=== PATIENT | female | born 1940 | race Caucasian/White ===

== ENCOUNTER 2016-08-10 09:41 | Inpatient (IN) | payer MEDICARE, BC ==
[2016-08-10] MEDS ORDERED: SODIUM CHLORIDE 0.9% 1,000 ML IV STA (09:50)
--- NOTE | 2016-08-10 09:53 | ED ---
SOB HPI - General Stated Complaint: SOB/Back Pain Time Seen by Provider: 08/10/16 09:41 Source: patient, EMS, RN notes reviewed Mode of arrival: EMS - History of Present Illness Initial Comments: This is a 75-year-old female history of COPD who states she had the onset over last 3 days of progressively worsening shortness of breath also she started developing sharp chest pain between her shoulder blades 10/10 severity this morning increases with movement and deep breathing. She was given Nubain 5 mg by EMS to decrease to 6/10 and also for/10 after 5 additional milligrams. She did have a low-grade temperature 99.1 she states she's also had some recent night sweats. She has quit smoking for about 2 months now. His other complaints at this time no peripheral edema. Some cough no overt phlegm production MD Complaint: shortness of breath, chest pain - Related Data Home Medications Medication Instructions Recorded Confirmed Atenolol [Tenormin] 25 mg PO BID 09/29/13 08/10/16 Losartan Potassium [Cozaar] 100 mg PO DAILY 09/25/15 08/10/16 Esomeprazole Magnesium [NexIUM] 40 mg PO DAILY@1200 08/03/16 08/10/16 HYDROcodone/APAP 5-325MG [[place] 0.5 - 1 tab PO BID PRN 08/03/16 08/10/16 5-325] L.acidoph,Paracasei, B.lactis 1 tab PO DAILY@1200 08/03/16 08/10/16 [Probiotic] Polyethylene Glycol 3350 [Miralax] 17 gm PO DAILY 08/03/16 08/10/16 predniSONE 5 mg PO DAILY 08/03/16 08/10/16 Allergies Allergy/AdvReac Type Severity Reaction Status Date / Time latex Allergy Rash/Hives Verified 08/10/16 10:33 levofloxacin [From Levaquin] Allergy Nausea & Verified 08/10/16 10:33 Vomiting Sulfa (Sulfonamide Allergy Rash/Hives Verified 08/10/16 10:33 Antibiotics) adhesive AdvReac Rash/Hives Verified 08/10/16 10:33 Review of Systems ROS Statement: Those systems with pertinent positive or pertinent negative responses have been documented in the HPI. ROS Other: All systems not noted in ROS Statement are negative. Past Medical History Past Medical History: GERD/Reflux, Hypertension, Respiratory Disorder Additional Past Medical History / Comment(s): slight emphysema, irregular heart beat, MASS LEFT UPPER LOBE treated with radiation 2016, pulmonary fibrosis O2 @ 2 liter while sleeping, abdominal discomfort History of Any Multi-Drug Resistant Organisms: None Reported Past Surgical History: Cholecystectomy, EPS, Heart Catheterization, Hysterectomy Additional Past Surgical History / Comment(s): LEFT LUNG CT GUIDED NEEDLE BX Past Anesthesia/Blood Transfusion Reactions: No Reported Reaction Past Psychological History: No Psychological Hx Reported Smoking Status: Former smoker Past Alcohol Use History: None Reported Additional Past Alcohol Use History / Comment(s): smoked 50 years 1ppd quit Past Drug Use History: None Reported - Past Family History Daughter(s) Family Medical History: Blood Disorder, Deep Vein Thrombosis (DVT) Additional Family Medical History / Comment(s): Factor V Mother Family Medical History: No Reported History General Exam - General Exam Comments Initial Comments: This is a well-developed well-nourished awake alert oriented 3 female General appearance: alert, in no apparent distress Head exam: Present: atraumatic, normocephalic, normal inspection Eye exam: Present: normal appearance, PERRL, EOMI. Absent: scleral icterus, conjunctival injection, periorbital swelling ENT exam: Present: normal exam, mucous membranes moist Neck exam: Present: normal inspection. Absent: tenderness, meningismus, lymphadenopathy Respiratory exam: Present: rhonchi (Rhonchi especially the right lower lobe), chest wall tenderness (Tennis palpation to the paraspinous muscles between the scapula. No step-off or crepitation no spinous process tenderness.), decreased breath sounds. Absent: respiratory distress, wheezes, rales, stridor Cardiovascular Exam: Present: regular rate, normal rhythm, normal heart sounds. Absent: systolic murmur, diastolic murmur, rubs, gallop, clicks GI/Abdominal exam: Present: soft, normal bowel sounds. Absent: distended, tenderness, guarding, rebound, rigid Extremities exam: Present: normal inspection, full ROM, normal capillary refill. Absent: tenderness, pedal edema, joint swelling, calf tenderness Back exam: Present: normal inspection Neurological exam: Present: alert, oriented X3, CN II-XII intact Psychiatric exam: Present: normal affect, normal mood Skin exam: Present: warm, dry, intact, normal color. Absent: rash Course Vital Signs 08/10/16 08/10/16 08/10/16 09:51 10:45 11:11 Temperature 97.9 F Pulse Rate 60 56 L Respiratory 18 18 18 Rate Blood Pressure 173/82 161/78 O2 Sat by Pulse 95 98 Oximetry 08/10/16 08/10/16 12:53 13:34 Temperature 98.1 F 97.9 F Pulse Rate 64 59 L Respiratory 20 18 Rate Blood Pressure 141/66 169/72 O2 Sat by Pulse 80 L 99 Oximetry Medical Decision Making - Medical Decision Making I did discuss the case with patient family and with Dr. Flor patient will be admitted admission was pending a CAT scan that was ordered. Real sober now seen. Dr. Flor did see the patient in the ER. - Lab Data Result diagrams: 08/10/16 10:00 08/10/16 10:00 Lab Results 08/10/16 08/10/16 08/10/16 Range/Units 10:00 10:00 10:00 WBC 7.3 (3.8-10.6) k/uL RBC 4.13 (3.80-5.40) m/uL Hgb 13.0 (11.4-16.0) gm/dL Hct 39.4 (34.0-46.0) % MCV 95.4 (80.0-100.0) fL MCH 31.5 (25.0-35.0) pg MCHC 33.0 (31.0-37.0) g/dL RDW 13.1 (11.5-15.5) % Plt Count 176 (150-450) k/uL Neutrophils % 83 % Lymphocytes % 6 % Monocytes % 7 % Eosinophils % 2 % Basophils % 0 % Neutrophils # 6.1 (1.3-7.7) k/uL Lymphocytes # 0.5 L (1.0-4.8) k/uL Monocytes # 0.5 (0-1.0) k/uL Eosinophils # 0.1 (0-0.7) k/uL Basophils # 0.0 (0-0.2) k/uL PT (9.0-12.0) sec INR (<1.1) APTT (22.0-30.0) sec D-Dimer (<0.60) mg/L FEU Sodium (137-145) mmol/L Potassium (3.5-5.1) mmol/L Chloride (98-107) mmol/L Carbon Dioxide (22-30) mmol/L Anion Gap mmol/L BUN (7-17) mg/dL Creatinine (0.52-1.04) mg/dL Est GFR (MDRD) Af Amer (>60 ml/min/1.73 sqM) Est GFR (MDRD) Non-Af (>60 ml/min/1.73 sqM) Glucose (74-99) mg/dL Plasma Lactic Acid Bala 1.6 (0.7-2.0) mmol/L Calcium (8.4-10.2) mg/dL Magnesium (1.6-2.3) mg/dL Total Bilirubin (0.2-1.3) mg/dL AST (14-36) U/L ALT (9-52) U/L Alkaline Phosphatase (38-126) U/L Total Creatine Kinase 21 L (30-135) U/L CK-MB (CK-2) 0.3 (0.0-2.4) ng/mL CK-MB (CK-2) Rel Index 1.4 Troponin I <0.012 (0.000-0.034) ng/mL NT-Pro-B Natriuret Pep pg/mL Total Protein (6.3-8.2) g/dL Albumin (3.5-5.0) g/dL Influenza Type A RNA (Not Detectd) Influenza Type B (PCR) (Not Detectd) 08/10/16 08/10/16 08/10/16 Range/Units 10:00 10:00 10:00 WBC (3.8-10.6) k/uL RBC (3.80-5.40) m/uL Hgb (11.4-16.0) gm/dL Hct (34.0-46.0) % MCV (80.0-100.0) fL MCH (25.0-35.0) pg MCHC (31.0-37.0) g/dL RDW (11.5-15.5) % Plt Count (150-450) k/uL Neutrophils % % Lymphocytes % % Monocytes % % Eosinophils % % Basophils % % Neutrophils # (1.3-7.7) k/uL Lymphocytes # (1.0-4.8) k/uL Monocytes # (0-1.0) k/uL Eosinophils # (0-0.7) k/uL Basophils # (0-0.2) k/uL PT 10.2 (9.0-12.0) sec INR 1.0 (<1.1) APTT 21.7 L (22.0-30.0) sec D-Dimer 1.00 H (<0.60) mg/L FEU Sodium 139 (137-145) mmol/L Potassium 4.3 (3.5-5.1) mmol/L Chloride 101 (98-107) mmol/L Carbon Dioxide 28 (22-30) mmol/L Anion Gap 10 mmol/L BUN 10 (7-17) mg/dL Creatinine 0.71 (0.52-1.04) mg/dL Est GFR (MDRD) Af Amer >60 (>60 ml/min/1.73 sqM) Est GFR (MDRD) Non-Af >60 (>60 ml/min/1.73 sqM) Glucose 100 H (74-99) mg/dL Plasma Lactic Acid Bala (0.7-2.0) mmol/L Calcium 9.3 (8.4-10.2) mg/dL Magnesium 2.0 (1.6-2.3) mg/dL Total Bilirubin 0.7 (0.2-1.3) mg/dL AST 17 (14-36) U/L ALT 25 (9-52) U/L Alkaline Phosphatase 52 (38-126) U/L Total Creatine Kinase (30-135) U/L CK-MB (CK-2) (0.0-2.4) ng/mL CK-MB (CK-2) Rel Index Troponin I (0.000-0.034) ng/mL NT-Pro-B Natriuret Pep 1140 pg/mL Total Protein 6.6 (6.3-8.2) g/dL Albumin 4.0 (3.5-5.0) g/dL Influenza Type A RNA (Not Detectd) Influenza Type B (PCR) (Not Detectd) 08/10/16 Range/Units 12:00 WBC (3.8-10.6) k/uL RBC (3.80-5.40) m/uL Hgb (11.4-16.0) gm/dL Hct (34.0-46.0) % MCV (80.0-100.0) fL MCH (25.0-35.0) pg MCHC (31.0-37.0) g/dL RDW (11.5-15.5) % Plt Count (150-450) k/uL Neutrophils % % Lymphocytes % % Monocytes % % Eosinophils % % Basophils % % Neutrophils # (1.3-7.7) k/uL Lymphocytes # (1.0-4.8) k/uL Monocytes # (0-1.0) k/uL Eosinophils # (0-0.7) k/uL Basophils # (0-0.2) k/uL PT (9.0-12.0) sec INR (<1.1) APTT (22.0-30.0) sec D-Dimer (<0.60) mg/L FEU Sodium (137-145) mmol/L Potassium (3.5-5.1) mmol/L Chloride (98-107) mmol/L Carbon Dioxide (22-30) mmol/L Anion Gap mmol/L BUN (7-17) mg/dL Creatinine (0.52-1.04) mg/dL Est GFR (MDRD) Af Amer (>60 ml/min/1.73 sqM) Est GFR (MDRD) Non-Af (>60 ml/min/1.73 sqM) Glucose (74-99) mg/dL Plasma Lactic Acid Bala (0.7-2.0) mmol/L Calcium (8.4-10.2) mg/dL Magnesium (1.6-2.3) mg/dL Total Bilirubin (0.2-1.3) mg/dL AST (14-36) U/L ALT (9-52) U/L Alkaline Phosphatase (38-126) U/L Total Creatine Kinase (30-135) U/L CK-MB (CK-2) (0.0-2.4) ng/mL CK-MB (CK-2) Rel Index Troponin I (0.000-0.034) ng/mL NT-Pro-B Natriuret Pep pg/mL Total Protein (6.3-8.2) g/dL Albumin (3.5-5.0) g/dL Influenza Type A RNA Not Detected (Not Detectd) Influenza Type B (PCR) Not Detected (Not Detectd) - EKG Data -: EKG Interpreted by Me EKG shows normal: sinus rhythm (Bradycardic sinus rhythm rate of 53 IA interval 1:30 QRS duration 86 QT/QTC of 440/412 possible left atrial enlargement no acute ST-T wave changes) - Radiology Data Radiology results: report reviewed (Review the imaging and report no acute changes the CAT scan was ordered showed a pleural base left upper lobe mass anteriorly. Please see the complete report), image reviewed Disposition Clinical Impression: Acute exacerbation of chronic obstructive airways disease, Adult respiratory distress syndrome, Mass of lung, Pulmonary fibrosis, Influenza, Febrile illness , acute Disposition: ADMITTED IP TO THIS HOSP Condition: Stable
[2016-08-10 10:17] LABS: Basophils % (A) 0 %; CH 32.3; Eosinophils # (A) 0.1 k/uL (0-0.7); Eosinophils % (A) 2 %; HCT 39.4 % (34.0-46.0); HDW 2.59; Luc % (Auto) 1; Lymphocytes # (A) 0.5 k/uL (1.0-4.8); Lymphocytes % (A) 6 %; MCH 31.5 pg (25.0-35.0); MCV 95.4 fL (80.0-100.0); Monocytes # (A) 0.5 k/uL (0-1.0); Monocytes % (A) 7 %; Neutrophils # (A) 6.1 k/uL (1.3-7.7); Neutrophils % (A) 83 %; RBC 4.13 m/uL (3.80-5.40); RDW 13.1 % (11.5-15.5); WBC 7.3 k/uL (3.8-10.6); WBC (Perox) 7.75
[2016-08-10 10:23] LABS: ALT 25 U/L (9-52); AST 17 U/L (14-36); Alkaline Phosphatase 52 U/L (38-126); Anion Gap 10 mmol/L; Blood Urea Nitrogen 10 mg/dL (7-17); Calcium 9.3 mg/dL (8.4-10.2); Carbon Dioxide 28 mmol/L (22-30); Chloride 101 mmol/L (98-107); Glucose 100 mg/dL (74-99); Non-African American GFR(MDRD) >60 (>60 ml/min/1.73 sqM); Potassium 4.3 mmol/L (3.5-5.1); Sodium 139 mmol/L (137-145); Total Bilirubin 0.7 mg/dL (0.2-1.3); Total Protein 6.6 g/dL (6.3-8.2)
[2016-08-10 10:25] LABS: Prothrombin Time 10.2 sec (9.0-12.0)
[2016-08-10 10:34] LABS: Creatine Kinase 21 U/L (30-135)
[2016-08-10 10:41] LABS: Partial Thromboplastin Time 21.7 sec (22.0-30.0)
--- NOTE | 2016-08-10 10:46 | XR ---
EXAMINATION TYPE: XR chest 2V DATE OF EXAM: 08/10/2016 10:41 AM COMPARISON: 07/06/2016 TECHNIQUE: PA and lateral views submitted. HISTORY: Shortness of breath FINDINGS: Coarsened interstitium suggests chronic interstitial lung disease or fibrosis. Focal area of density or mass in the left upper lobe noted. Heart size is enlarged. Arthropathy of the hip joints and diffu se osteopenia noted. IMPRESSION: 1. Findings suggest pulmonary fibrosis. Focal area of scar or mass in the left upper lobe noted. Pleu ral-based mass was seen on previous CT scan of 04/21/2016
[2016-08-10 10:47] LABS: Creatine Kinase MB 0.3 ng/mL (0.0-2.4); Troponin I <0.012 ng/mL (0.000-0.034)
[2016-08-10] MEDS ORDERED: RX INFO: IV CONTRAST WAS GIVEN 1 EACH MISC MISCELLANE PRN (13:21)
[2016-08-10] MEDS ORDERED: HYDROcodone/APAP 5-325MG 1 EACH TAB PO STA (14:03)
--- NOTE | 2016-08-10 14:07 | CT ---
EXAMINATION TYPE: CT angio chest DATE OF EXAM: 08/10/2016 1:57 PM COMPARISON: 04/21/2016 HISTORY: Patient complains of upper chest pain. Patient has elevated d-dimer. CT DLP: 22.4 mGycm CONTRAST: CT chest with contrast and 3D reconstruction with MIP imaging is performed with IV Contrast, patient injected with 100 mL of Omnipaque 350. Contrast-enhanced CT of the chest was performed through the course of the pulmonary arteries with sandra g and mediastinal window settings submitted. 3D reconstruction with MIP imaging was also performed. PULMONARY ARTERIES: The pulmonary arteries and their major tributaries are patent. I do not see hakeem dence for sizable filling defect to suggest pulmonary embolic process. LUNGS: There is a pleural-based mass left upper lobe anteriorly which measures 3 x 2.5 cm and demonst rates chest wall invasion into the left pectoralis minor musculature. Additional nodular density me asuring 9.2 mm left upper lobe anteriorly image 33. Satellite nodule is also identified on image 42 m easuring 7 mm. There is evidence of a moderate to severe idiopathic pulmonary fibrosis. Scattered are as of infiltrate right lower lobe. This finding is stable. Mild basilar bronchiectasis. MEDIASTINUM: Atheromatous and ectatic change of the thoracic aorta. Prominence of the pulmonary arter ies suggesting pulmonary arterial hypertension. The heart is enlarged. No evidence for mediastinal m ass. No mediastinal lymph nodes greater than 1cm. HILAR STRUCTURES: No evidence for mass. No hilar lymph nodes greater than 1 cm. UPPER ABDOMEN: No significant abnormality is seen. Degenerative changes thoracic and lumbar spine wi th several hemangiomas noted. IMPRESSION: 1. No evidence for Pulmonary embolism at this time. 2.pleural-based mass left upper lobe anteriorly which measures 3 x 2.5 cm and demonstrates chest wal l invasion into the left pectoralis minor musculature. Additional nodular densities as discussed marcela picious for small metastatic foci. 3. Idiopathic pulmonary fibrosis with scattered areas of infiltrate and bronchiectasis.
[2016-08-10] MEDS ORDERED: HYDROcodone/APAP 5-325MG 1 EACH TAB PO PRN (14:23)
--- NOTE | 2016-08-10 14:26 | ED ---
Medical Decision Making - Lab Data Result diagrams: 08/10/16 10:00 08/10/16 10:00 Lab Results 08/10/16 08/10/16 08/10/16 Range/Units 10:00 10:00 10:00 WBC 7.3 (3.8-10.6) k/uL RBC 4.13 (3.80-5.40) m/uL Hgb 13.0 (11.4-16.0) gm/dL Hct 39.4 (34.0-46.0) % MCV 95.4 (80.0-100.0) fL MCH 31.5 (25.0-35.0) pg MCHC 33.0 (31.0-37.0) g/dL RDW 13.1 (11.5-15.5) % Plt Count 176 (150-450) k/uL Neutrophils % 83 % Lymphocytes % 6 % Monocytes % 7 % Eosinophils % 2 % Basophils % 0 % Neutrophils # 6.1 (1.3-7.7) k/uL Lymphocytes # 0.5 L (1.0-4.8) k/uL Monocytes # 0.5 (0-1.0) k/uL Eosinophils # 0.1 (0-0.7) k/uL Basophils # 0.0 (0-0.2) k/uL PT (9.0-12.0) sec INR (<1.1) APTT (22.0-30.0) sec D-Dimer (<0.60) mg/L FEU Sodium (137-145) mmol/L Potassium (3.5-5.1) mmol/L Chloride (98-107) mmol/L Carbon Dioxide (22-30) mmol/L Anion Gap mmol/L BUN (7-17) mg/dL Creatinine (0.52-1.04) mg/dL Est GFR (MDRD) Af Amer (>60 ml/min/1.73 sqM) Est GFR (MDRD) Non-Af (>60 ml/min/1.73 sqM) Glucose (74-99) mg/dL Plasma Lactic Acid Bala 1.6 (0.7-2.0) mmol/L Calcium (8.4-10.2) mg/dL Magnesium (1.6-2.3) mg/dL Total Bilirubin (0.2-1.3) mg/dL AST (14-36) U/L ALT (9-52) U/L Alkaline Phosphatase (38-126) U/L Total Creatine Kinase 21 L (30-135) U/L CK-MB (CK-2) 0.3 (0.0-2.4) ng/mL CK-MB (CK-2) Rel Index 1.4 Troponin I <0.012 (0.000-0.034) ng/mL NT-Pro-B Natriuret Pep pg/mL Total Protein (6.3-8.2) g/dL Albumin (3.5-5.0) g/dL Influenza Type A RNA (Not Detectd) Influenza Type B (PCR) (Not Detectd) 08/10/16 08/10/16 08/10/16 Range/Units 10:00 10:00 10:00 WBC (3.8-10.6) k/uL RBC (3.80-5.40) m/uL Hgb (11.4-16.0) gm/dL Hct (34.0-46.0) % MCV (80.0-100.0) fL MCH (25.0-35.0) pg MCHC (31.0-37.0) g/dL RDW (11.5-15.5) % Plt Count (150-450) k/uL Neutrophils % % Lymphocytes % % Monocytes % % Eosinophils % % Basophils % % Neutrophils # (1.3-7.7) k/uL Lymphocytes # (1.0-4.8) k/uL Monocytes # (0-1.0) k/uL Eosinophils # (0-0.7) k/uL Basophils # (0-0.2) k/uL PT 10.2 (9.0-12.0) sec INR 1.0 (<1.1) APTT 21.7 L (22.0-30.0) sec D-Dimer 1.00 H (<0.60) mg/L FEU Sodium 139 (137-145) mmol/L Potassium 4.3 (3.5-5.1) mmol/L Chloride 101 (98-107) mmol/L Carbon Dioxide 28 (22-30) mmol/L Anion Gap 10 mmol/L BUN 10 (7-17) mg/dL Creatinine 0.71 (0.52-1.04) mg/dL Est GFR (MDRD) Af Amer >60 (>60 ml/min/1.73 sqM) Est GFR (MDRD) Non-Af >60 (>60 ml/min/1.73 sqM) Glucose 100 H (74-99) mg/dL Plasma Lactic Acid Bala (0.7-2.0) mmol/L Calcium 9.3 (8.4-10.2) mg/dL Magnesium 2.0 (1.6-2.3) mg/dL Total Bilirubin 0.7 (0.2-1.3) mg/dL AST 17 (14-36) U/L ALT 25 (9-52) U/L Alkaline Phosphatase 52 (38-126) U/L Total Creatine Kinase (30-135) U/L CK-MB (CK-2) (0.0-2.4) ng/mL CK-MB (CK-2) Rel Index Troponin I (0.000-0.034) ng/mL NT-Pro-B Natriuret Pep 1140 pg/mL Total Protein 6.6 (6.3-8.2) g/dL Albumin 4.0 (3.5-5.0) g/dL Influenza Type A RNA (Not Detectd) Influenza Type B (PCR) (Not Detectd) 08/10/16 Range/Units 12:00 WBC (3.8-10.6) k/uL RBC (3.80-5.40) m/uL Hgb (11.4-16.0) gm/dL Hct (34.0-46.0) % MCV (80.0-100.0) fL MCH (25.0-35.0) pg MCHC (31.0-37.0) g/dL RDW (11.5-15.5) % Plt Count (150-450) k/uL Neutrophils % % Lymphocytes % % Monocytes % % Eosinophils % % Basophils % % Neutrophils # (1.3-7.7) k/uL Lymphocytes # (1.0-4.8) k/uL Monocytes # (0-1.0) k/uL Eosinophils # (0-0.7) k/uL Basophils # (0-0.2) k/uL PT (9.0-12.0) sec INR (<1.1) APTT (22.0-30.0) sec D-Dimer (<0.60) mg/L FEU Sodium (137-145) mmol/L Potassium (3.5-5.1) mmol/L Chloride (98-107) mmol/L Carbon Dioxide (22-30) mmol/L Anion Gap mmol/L BUN (7-17) mg/dL Creatinine (0.52-1.04) mg/dL Est GFR (MDRD) Af Amer (>60 ml/min/1.73 sqM) Est GFR (MDRD) Non-Af (>60 ml/min/1.73 sqM) Glucose (74-99) mg/dL Plasma Lactic Acid Bala (0.7-2.0) mmol/L Calcium (8.4-10.2) mg/dL Magnesium (1.6-2.3) mg/dL Total Bilirubin (0.2-1.3) mg/dL AST (14-36) U/L ALT (9-52) U/L Alkaline Phosphatase (38-126) U/L Total Creatine Kinase (30-135) U/L CK-MB (CK-2) (0.0-2.4) ng/mL CK-MB (CK-2) Rel Index Troponin I (0.000-0.034) ng/mL NT-Pro-B Natriuret Pep pg/mL Total Protein (6.3-8.2) g/dL Albumin (3.5-5.0) g/dL Influenza Type A RNA Not Detected (Not Detectd) Influenza Type B (PCR) Not Detected (Not Detectd) Disposition Clinical Impression: Acute exacerbation of chronic obstructive airways disease, Adult respiratory distress syndrome, Mass of lung, Pulmonary fibrosis, Influenza, Febrile illness , acute Disposition: ADMITTED IP TO THIS HOSP Condition: Stable Referrals: Higinio Oro MD [Primary Care Provider] - 1-2 days Decision Time: 13:30
[2016-08-10] MEDS ORDERED: SODIUM CHLORIDE 0.9% 1,000 ML IV SCH (14:30)
[2016-08-10] MEDS: IPRATROPIUM-ALBUTEROL 3 ML NEB INHALATION SCH ×2 (16:30→21:08)
--- NOTE | 2016-08-10 16:52 | P.HPIM ---
History of Present Illness H&P Date: 08/10/16 Chief Complaint: Acute respiratory failure, ARDS, febrile illness, pulmonary fibrosis, COPD 74-year-old female [address] Higinio Oro's patient with past medical history of pulmonary fibrosis, COPD, left upper lobe radiation secondary to mass claim by patient that was not cancerous at the time, also patient has history of CAD arrhythmia hypertension and hyperlipidemia. Ex line patient presented to the emergency department at [facility] complaining of back pain between her shoulder blade area along with significant shortness of breath cough and wheezes with significant hypoxia and worsening symptoms compared to her baseline. Patient also developed to have fever chills and mildly productive cough. Patient finding in the emergency room x-ray consistent with abnormality with her pulmonary fibrosis and COPD with? Of pneumonia. CTA came back negative for PE but consistent with finding off a new mass in the left upper lobe along with scarring tissue and few site of metastasis in the pleural area. Patient was diagnosed with COPD exacerbation, ARDS, febrile illness, hypoxia and respiratory failure will be admitting patient to the hospital for the above problem. Review of Systems Constitutional: Reports anorexia, Reports fatigue, Reports lethargy, Reports malaise, Reports poor appetite, Reports weakness, Reports weight loss, Denies as per HPI, Denies chills, Denies chronic headaches, Denies chronic pain, Denies daytime sleepiness, Denies fever, Denies night sweats, Denies sweats, Denies weight gain Eyes: denies as per HPI Ears: bilateral: decreased hearing Ears, nose, mouth and throat: Reports dysphagia, Reports nasal congestion, Reports nasal discharge, Reports sinus pain, Reports sinus pressure, Denies as per HPI, Denies ant. neck pain, Denies bleeding gums, Denies dental pain, Denies epistaxis, Denies headache, Denies hoarseness, Denies mouth pain, Denies neck fullness/pressure, Denies neck lump, Denies nose pain, Denies odynophagia, Denies post-nasal drip, Denies swelling in mouth, Denies swelling in throat, Denies sore throat, Denies vertigo, Denies voice changes Breasts: bilateral: as per HPI Cardiovascular: Reports chest pain, Reports decreased exercise tolerance, Reports dyspnea on exertion, Reports edema, Reports high blood pressure, Reports irregular heart beat, Reports leg edema, Reports orthopnea, Reports palpitations, Reports paroxysmal nocturnal dyspnea, Reports rapid heart beat, Reports shortness of breath, Denies as per HPI, Denies claudication, Denies lightheadedness, Denies phlebitis, Denies syncope Respiratory: Reports congestion, Reports cough, Reports dyspnea, Reports pain on inspiration, Reports respiratory infections, Reports wheezing, Denies as per HPI, Denies cough with sputum, Denies excessive sputum, Denies hemoptysis, Denies home oxygen, Denies pain, Denies pleurisy, Denies sleep apnea, Denies snoring Gastrointestinal: Reports abdominal pain, Reports bloating, Reports constipation , Reports dyspepsia, Reports indigestion, Reports loss of appetite, Reports nausea, Denies as per HPI, Denies belching, Denies BRBPR, Denies change in bowel habits, Denies coffee ground emesis, Denies diarrhea, Denies early satiety , Denies excessive gas, Denies heartburn, Denies hematemesis, Denies hematochezia, Denies jaundice, Denies lactose intolerance, Denies melena, Denies vomiting Genitourinary: Reports urgency, Reports urinary frequency, Denies as per HPI, Denies abnormal vaginal bleeding, Denies decreased libido, Denies difficulty conceiving, Denies difficulty voiding, Denies dysmenorrhea, Denies dyspareunia, Denies dysuria, Denies flank pain, Denies genital sores, Denies hematuria, Denies hot flashes, Denies incomplete emptying, Denies kidney stones, Denies menorrhagia, Denies mixed incontinence, Denies nocturia, Denies pelvic pain, Denies post void dribbling, Denies , Denies prolapse symptoms, Denies stress incontinence, Denies urge incontinence, Denies vaginal discharge, Denies vaginal dryness, Denies vaginal itching, Denies vaginal odor Musculoskeletal: Reports arm numbness/tingling, Reports loss of height, Reports low back pain, Reports muscle cramps, Reports myalgias, Reports neck pain, Denies as per HPI, Denies atrophy, Denies fractures, Denies frequent falls, Denies gait dysfunction, Denies hot joints, Denies leg numbness/tingling, Denies limitation of motion, Denies morning stiffness, Denies muscle weakness, Denies neck stiffness, Denies prior amputations, Denies redness of joints, Denies shooting arm pain, Denies shooting leg pain Integumentary: Reports pruritus, Reports rash, Denies as per HPI, Denies acne, Denies boils, Denies brittle nails, Denies change in hair/nails, Denies color changes, Denies darkening of skin, Denies depigmentation, Denies dryness, Denies foot/leg ulcers, Denies growths, Denies hirsutism, Denies lesions, Denies onychomycosis, Denies sores, Denies striae, Denies unusual bruising, Denies wounds Neurological: Reports ataxia, Reports burning pain, Reports tingling, Denies as per HPI, Denies aphasia, Denies balance difficulties, Denies change in mentation , Denies change in smell/taste, Denies change in speech, Denies confusion, Denies convulsions, Denies double vision, Denies gait dysfunction, Denies head injury, Denies headaches, Denies hearing difficulties, Denies lack of coordination, Denies loss of vision, Denies memory loss, Denies migraines, Denies motor disturbance, Denies numbness, Denies paralysis, Denies paresthesias , Denies seizures, Denies sensory deficit, Denies spasticity, Denies syncope, Denies tic, Denies transient paralysis, Denies tremors, Denies vertigo, Denies weakness, Denies visual changes Psychiatric: Reports anhedonia, Reports anxiety, Reports depression, Reports memory loss, Denies as per HPI, Denies anxiety attacks, Denies change in appetite, Denies change in libido, Denies change in sleep habits, Denies confusion, Denies difficulty concentrating, Denies disorientation, Denies hallucinations, Denies hopelessness, Denies hypersomnia, Denies insomnia, Denies irritability, Denies mood swings, Denies paranoia, Denies sadness/ tearfulness, Denies sleep disturbances, Denies suicidal ideation Endocrine: Reports cold intolerance, Reports excessive thirst, Reports fatigue, Denies as per HPI, Denies deepening of the voice, Denies excessive sweating, Denies flushing, Denies heat intolerance, Denies high blood sugars, Denies increase in ring/shoe/hat size, Denies low blood sugars, Denies nocturia, Denies palpitations, Denies polydipsia, Denies polyphagia, Denies polyuria, Denies proptosis, Denies recent glucocorticoid use, Denies thyroid mass, Denies weight change Hematologic/Lymphatic: Reports easy bleeding, Reports easy bruising, Denies as per HPI, Denies lymphadenopathy, Denies lymphedema, Denies thrombophilia Allergic/Immunologic: Reports allergic rhinitis, Denies as per HPI, Denies anaphylaxis, Denies angioedema, Denies gluten intolerance, Denies persistent infections, Denies seasonal allergies, Denies urticaria, Denies wheezing Past Medical History Past Medical History: COPD, GERD/Reflux, Hypertension, Osteoarthritis (OA), Respiratory Disorder Additional Past Medical History / Comment(s): slight emphysema," irregular heart beat, PT DENIES CANCER OF ANY KIND BUT"NODULE LEFT UPPER LOBE KEPT GETTING LARER SO THEY DID treated with radiation 2015, pulmonary fibrosis, O2 @ 2 liter while sleeping, abdominal discomfort, HAD PNE VACCINE AFTER AGE 67-NOT SURE OF DATE. History of Any Multi-Drug Resistant Organisms: None Reported Past Surgical History: Cholecystectomy, EPS, Heart Catheterization, Hysterectomy Additional Past Surgical History / Comment(s): 05-02-12 BRONCH W/ BX. LEFT LUNG CT GUIDED NEEDLE BX 01/25/15, BRONCH/BX 02-17-15,"BENIGN" NASAL POLYPS REMOVED-BENIGN, ESSENCE CATARACTS, COLONOSCOPY/POLYPECTOMY-BENIGN, HYSTERECTOMY AGE 41 STILL HAS RT OVARY.EGD. Past Anesthesia/Blood Transfusion Reactions: No Reported Reaction Past Psychological History: No Psychological Hx Reported Additional Psychological History / Comment(s): PT LIVES WITH SPOUSE,IS INDEPENDANT, HAS TOTAL OF 4 STEPS TO GET INTO HOME. NO PETS. HAS HOME 02. NO OUTSIDE SERVICES. Smoking Status: Former smoker Past Alcohol Use History: None Reported Additional Past Alcohol Use History / Comment(s): smoked 50 years 1ppd quit Past Drug Use History: None Reported - Past Family History Daughter(s) Family Medical History: Blood Disorder, Deep Vein Thrombosis (DVT) Additional Family Medical History / Comment(s): Factor V,,, GRANDAUGHTER HAS FACTOR V WELL Father Additional Family Medical History / Comment(s): VALVE REPLACEMENT Mother Family Medical History: No Reported History Medications and Allergies Home Medications Medication Instructions Recorded Confirmed Type Atenolol [Tenormin] 25 mg PO BID 09/29/13 08/10/16 History Losartan Potassium [Cozaar] 100 mg PO DAILY 09/25/15 08/10/16 History Esomeprazole Magnesium [NexIUM] 40 mg PO DAILY@1200 08/03/16 08/10/16 History HYDROcodone/APAP 5-325MG [[place] 0.5 - 1 tab PO BID PRN 08/03/16 08/10/16 History 5-325] L.acidoph,Paracasei, B.lactis 1 tab PO DAILY@1200 08/03/16 08/10/16 History [Probiotic] Polyethylene Glycol 3350 [Miralax] 17 gm PO DAILY 08/03/16 08/10/16 History predniSONE 5 mg PO DAILY 08/03/16 08/10/16 History Allergies Allergy/AdvReac Type Severity Reaction Status Date / Time latex Allergy Rash/Hives Verified 08/10/16 10:33 levofloxacin [From Levaquin] Allergy Nausea & Verified 08/10/16 10:33 Vomiting Sulfa (Sulfonamide Allergy Rash/Hives Verified 08/10/16 10:33 Antibiotics) adhesive AdvReac Rash/Hives Verified 08/10/16 10:33 Physical Exam Vitals: Vital Signs Temp Pulse Resp BP Pulse Ox 08/10/16 14:44 97.9 F 59 L 18 143/65 98 - Constitutional General appearance: no average body habitus, cooperative, disheveled, no mild distress, no morbidly obese, no acute distress, no obese, no severe distress, no thin - Neck Neck: no lymphadenopathy, normal ROM, no other, no rigidity, no stridor, no thyromegaly Carotids: bilateral: upstroke normal Thyroid: bilateral: normal size - Respiratory Respiratory: bilateral: diminished, dullness, rales, rhonchi, wheezing - Cardiovascular Rhythm: regular Heart sounds: normal: S1, S2 Abnormal Heart Sounds: systolic murmur, S3 Gallop - Gastrointestinal General gastrointestinal: no absent bowel sounds, decreased bowel sounds, distended, hepatomegaly, no hyperactive bowel sounds, normal bowel sounds, no organomegaly, no rigid, no scaphoid, no soft, no splenomegaly, no tenderness, no umbilical hernia, no ventral hernia - Integumentary Integumentary: no calor, no cellulitis, no cyanotic, no decreased turgor, no flushed, no jaundiced, normal, no normal turgor, pale, rash, no ulcer - Neurologic Neurologic: CNII-XII intact - Musculoskeletal Musculoskeletal: gait normal, generalized weakness, strength equal bilaterally, no right sided weakness, no left sided weakness - Psychiatric Psychiatric: A&O x's 3, appropriate affect, no intact judgment & insight Results CBC & Chem 7: 08/10/16 10:00 08/10/16 10:00 Thrombosis Risk Factor Assmnt - DVT/VTE Prophylaxis DVT/VTE Prophylaxis: Pharmacologic Prophylaxis ordered, Mechanical Prophylaxis ordered Assessment and Plan Plan: 1 acute respiratory failure: Combination of pulmonary fibrosis, infection, ARDS , COPD exacerbation and possible metastasis. 2 COPD exacerbation: With patient's current symptoms patient will be on Solu- Medrol, DuoNeb, Pulmicort and will consult pulmonary. 3 advance pulmonary fibrosis: Long-standing has been seen pulmonary for long time continue current pulmonary medication at this point. 4 febrile illness and ARDS: Most likely obstructive pneumonia with severe bronchitis with current symptoms gram-negative coverage will be done continue to watch patient hemodynamic status and repeat lab in the morning. 5 CAD: No chest pain or angina patient remain on Tenormin and losartan resume medication. 6 hyperlipidemia: Not on any medication currently. 7 arrhythmia: Has been doing very well on atenolol. 8 severe GERD/GI prophylaxis: Patient will be on Nexium 40 mg daily. 9 DVT prophylaxis: Patient will be on heparin subcutaneous. CODE STATUS: Full code. Expectation from this admission: Patient be the hospital for more than 2 nights.
[2016-08-10] MEDS: methylPREDNISolone SOD SUCCI 125 MG/2 ML VIAL IV SCH ×2 (18:00→23:21)
[2016-08-10] MEDS ORDERED: OSELTAMIVIR 75 MG CAP PO SCH (18:00)
[2016-08-10] MEDS: ATENOLOL 25 MG TAB PO SCH (20:26)
[2016-08-10] MEDS ORDERED: LOSARTAN 50 MG TAB PO STA (22:37)
[2016-08-10] MEDS: MELATONIN 5 MG TABLET PO SCH (23:19)
[2016-08-10] MEDS: HYDROcodone/APAP 5-325MG 1 EACH TAB PO PRN (23:19)
[2016-08-10 23:42] VITALS: RESP 16
[2016-08-11] MEDS: IPRATROPIUM-ALBUTEROL 3 ML NEB INHALATION SCH ×6 (00:38→20:35)
[2016-08-11] MEDS ORDERED: ACETAMINOPHEN TAB 325 MG TAB PO STA (05:40)
[2016-08-11] MEDS: methylPREDNISolone SOD SUCCI 125 MG/2 ML VIAL IV SCH ×2 (05:41→12:49)
[2016-08-11 05:47] LABS: Glucose,Whole Blood 151 mg/dL (75-99)
[2016-08-11 07:00] LABS: Glucose,Whole Blood 129 mg/dL (75-99)
[2016-08-11] MEDS: POLYETHYLENE GLYCOL 3350 17 GM POWD.PACK PO SCH (07:47)
[2016-08-11] MEDS: PANTOPRAZOLE 40 MG TABLET PO SCH (07:47)
[2016-08-11] MEDS: ATENOLOL 25 MG TAB PO SCH ×2 (07:47→21:01)
[2016-08-11] MEDS: LOSARTAN 50 MG TAB PO SCH (07:48)
[2016-08-11] MEDS ORDERED: traMADol 50 MG TAB PO PRN (10:12)
[2016-08-11 11:35] LABS: Glucose,Whole Blood 137 mg/dL (75-99)
--- NOTE | 2016-08-11 11:38 | P.CNPUL ---
History of Present Illness Consult date: 08/11/16 Reason for consult: dyspnea, chest pain, pulmonary fibrosis, other Chief complaint: Shortness of breath and chest pain/back pain History of present illness: 75-year-old female with a history of a well-established idiopathic pulmonary fibrosis. Recently started on a new anti-fibrotic drug by Dr. Viridiana Ramirez although she has not actually taken the medication as yet. Anyway the patient was seen in the emergency room admitted with a diagnoses of increasing shortness of breath and pain in the back and chest area. The patient states that the pain was primarily brought her in. I did have the opportunity to talk to Dr. Garces about this patient. He is aware of the fact that she has a pleural-based mass in the left upper lobe. Apparently the patient had multiple bronchoscopy and biopsy attempts here in at [facility]. Apparently because there were not able to make a diagnosis, they just ended up doing radiation to this area. More recently, she had another CAT scan on this admission which showed not only the mass which is pleural-based and on the left upper lobe, but also the mass is apparently invading the pectoralis minor muscle. For this reason she was admitted to the hospital. She is not really coughing very much. No fever no chills. Not bringing up any phlegm. Not coughing up any blood. The patient was really not aware as to why she was admitted. She did mention or her mentioned that she apparently had some slight temperature elevation in the emergency department. The x-rays and CAT scans are reviewed. I did speak to Dr. De Dios. Review of Systems A 12 point review of system is primarily positive for shortness breath and chest pain. The pain is primarily coming I think from the left upper lobe pleural-based mass. She has had previous radiation to this area. There is no precise diagnosis. 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 She's had multiple biopsies. The pain has been treated primarily with steroids and anti- inflammatories as well as narcotics. Past Medical History Past Medical History: COPD, GERD/Reflux, Hypertension, Osteoarthritis (OA), Respiratory Disorder Additional Past Medical History / Comment(s): slight emphysema," irregular heart beat, PT DENIES CANCER OF ANY KIND BUT"NODULE LEFT UPPER LOBE KEPT GETTING LARER SO THEY DID treated with radiation 2016, pulmonary fibrosis, O2 @ 2 liter while sleeping, abdominal discomfort, HAD PNE VACCINE AFTER AGE 67-NOT SURE OF DATE. History of Any Multi-Drug Resistant Organisms: None Reported Past Surgical History: Cholecystectomy, EPS, Heart Catheterization, Hysterectomy Additional Past Surgical History / Comment(s): 05-02-12 BRONCH W/ BX. LEFT LUNG CT GUIDED NEEDLE BX 01/25/15, BRONCH/BX 02-17-15,"BENIGN" NASAL POLYPS REMOVED-BENIGN, ESSENCE CATARACTS, COLONOSCOPY/POLYPECTOMY-BENIGN, HYSTERECTOMY AGE 41 STILL HAS RT OVARY.EGD. Past Anesthesia/Blood Transfusion Reactions: No Reported Reaction Past Psychological History: No Psychological Hx Reported Additional Psychological History / Comment(s): PT LIVES WITH SPOUSE,IS INDEPENDANT, HAS TOTAL OF 4 STEPS TO GET INTO HOME. NO PETS. HAS HOME 02. NO OUTSIDE SERVICES. Smoking Status: Former smoker Past Alcohol Use History: None Reported Additional Past Alcohol Use History / Comment(s): smoked 50 years 1ppd quit Past Drug Use History: None Reported - Past Family History Daughter(s) Family Medical History: Blood Disorder, Deep Vein Thrombosis (DVT) Additional Family Medical History / Comment(s): Factor V,,, GRANDAUGHTER HAS FACTOR V WELL Father Additional Family Medical History / Comment(s): VALVE REPLACEMENT Mother Family Medical History: No Reported History Medications and Allergies Home Medications Medication Instructions Recorded Confirmed Type Atenolol [Tenormin] 25 mg PO BID 09/29/13 08/10/16 History Losartan Potassium [Cozaar] 100 mg PO DAILY 09/25/15 08/10/16 History Esomeprazole Magnesium [NexIUM] 40 mg PO DAILY@1200 08/03/16 08/10/16 History HYDROcodone/APAP 5-325MG [[place] 0.5 - 1 tab PO BID PRN 08/03/16 08/10/16 History 5-325] L.acidoph,Paracasei, B.lactis 1 tab PO DAILY@1200 08/03/16 08/10/16 History [Probiotic] Polyethylene Glycol 3350 [Miralax] 17 gm PO DAILY 08/03/16 08/10/16 History predniSONE 5 mg PO DAILY 08/03/16 08/10/16 History Allergies Allergy/AdvReac Type Severity Reaction Status Date / Time latex Allergy Rash/Hives Verified 08/10/16 10:33 levofloxacin [From Levaquin] Allergy Nausea & Verified 08/10/16 10:33 Vomiting Sulfa (Sulfonamide Allergy Rash/Hives Verified 08/10/16 10:33 Antibiotics) adhesive AdvReac Rash/Hives Verified 08/10/16 10:33 Physical Exam Osteopathic Statement: *. No significant issues noted on an osteopathic structural exam other than those noted in the History and Physical/Consult. Vitals: Vital Signs Temp Pulse Pulse Resp BP BP Pulse Ox 08/11/16 10:59 80 08/11/16 10:45 84 08/11/16 07:24 72 08/11/16 07:10 72 08/11/16 07:00 97.8 F 75 16 174/79 97 08/11/16 00:00 73 16 08/10/16 23:43 179/86 08/10/16 23:00 96.2 F L 73 16 95 08/10/16 21:23 76 08/10/16 21:08 63 08/10/16 14:44 97.9 F 59 L 18 143/65 98 Intake and Output 08/10/16 08/11/16 08/11/16 22:59 06:59 14:59 Intake Total 590 1200 480 Balance 590 1200 480 Intake: Intake, IV Titration 800 Amount Sodium Chloride 0.9% 1, 800 000 ml @ 100 mls/hr IV . Q10H STA Rx#:[id number] Oral 590 400 480 Other: # Voids 2 2 No acute distress, oriented 3. HEENT examination is grossly unremarkable. Mucous membranes are moist. No oral lesions. Neck supple. Full range of motion. No adenopathy. Cardiovascular examination reveals regular rhythm rate. S1 and S2 normal. No S3-S4 or murmur. Lungs reveal some bibasilar crackles. There are Velcro in nature. No wheezes. No rhonchi. Abdomen soft bowel sounds are heard. Extremities are intact. Results - Laboratory Findings CBC and BMP: 08/10/16 10:00 08/10/16 10:00 PT/INR, D-dimer PT 10.2 sec (9.0-12.0) 08/10/16 10:00 INR 1.0 (<1.1) 08/10/16 10:00 D-Dimer 1.00 mg/L FEU (<0.60) H 08/10/16 10:00 Abnormal lab findings: Abnormal Labs 08/11/16 08/11/16 05:46 06:58 POC Glucose (mg/dL) 151 H 129 H - Diagnostic Findings Chest x-ray: image reviewed CT scan - chest: image reviewed (Chest x-rays labs and medications are all reviewed.) Assessment and Plan (1) Mass of lung Status: Acute (2) Pulmonary fibrosis Status: Acute Plan: Plan dated 08/11/2016 The patient has a pleural-based mass in the left upper lobe. She also suffers some pulmonary fibrosis. Was recently started on a new anti-fibrotic drug for her pulmonary fibrosis although she has not taken her first dose. Presented to the emergency department with pain and shortness of breath. I did speak to Dr. Prieto is aware of the mass. She's had multiple bronchoscopies without diagnosis. We'll sent to [facility] and still had no diagnoses. Radiated for presumed lung cancer. Her primary problem right now is pain. The mass now seems to be invading the pectoralis minor muscle. Time with Patient: Greater than 30
[2016-08-11] MEDS: amLODIPine 5 MG TAB PO SCH (13:26)
--- NOTE | 2016-08-11 15:48 | P.PN ---
Subjective 74-year-old female [address] Higinio Oro's patient with past medical history of pulmonary fibrosis, COPD, left upper lobe radiation secondary to mass claim by patient that was not cancerous at the time, also patient has history of CAD arrhythmia hypertension and hyperlipidemia. Ex line patient presented to the emergency department at [facility] complaining of back pain between her shoulder blade area along with significant shortness of breath cough and wheezes with significant hypoxia and worsening symptoms compared to her baseline. Patient also developed to have fever chills and mildly productive cough. Patient finding in the emergency room x-ray consistent with abnormality with her pulmonary fibrosis and COPD with? Of pneumonia. CTA came back negative for PE but consistent with finding off a new mass in the left upper lobe along with scarring tissue and few site of metastasis in the pleural area. Patient was diagnosed with COPD exacerbation, ARDS, febrile illness, hypoxia and respiratory failure will be admitting patient to the hospital for the above problem. 08/11: Patient is breathing status is stable at this time. Solu-Medrol will be switched over to oral prednisone. Blood pressure has been elevated for which Norvasc has been added and prescription sent to her pharmacy. Patient states that Dr. Randhawa is getting precert on Esbriet 267 mg but she has not started this. Patient is complaining of neck and head pain for which she has been reluctant to take Miller and Ultram added. Patient has been trying to wean herself off Miller but she is agreeable continue this when she leaves the hospital. Plan to monitor her blood pressure overnight and anticipate discharge home tomorrow. Objective - Vital Signs Vital signs: Vital Signs Temp 97.8 F 08/11/16 07:00 Pulse 72 08/11/16 07:24 Resp 16 08/11/16 07:00 BP 174/79 08/11/16 07:00 Pulse Ox 97 08/11/16 07:00 Intake & Output 08/10/16 08/11/16 08/11/16 18:59 06:59 18:59 Intake Total 1790 480 Balance 1790 480 Intake: Intake, IV Titration 800 Amount Sodium Chloride 0.9% 1, 800 000 ml @ 100 mls/hr IV . Q10H STA Rx#:[id number] Oral 990 480 Other: # Voids 2 - Exam General appearance: no average body habitus, cooperative, disheveled, no mild distress, no morbidly obese, no acute distress, no obese, no severe distress, no thin - Neck Neck: no lymphadenopathy, normal ROM, no other, no rigidity, no stridor, no thyromegaly Carotids: bilateral: upstroke normal Thyroid: bilateral: normal size - Respiratory Respiratory: bilateral: diminished, dullness, rales, rhonchi, wheezing - Cardiovascular Rhythm: regular Heart sounds: normal: S1, S2 Abnormal Heart Sounds: systolic murmur, S3 Gallop - Gastrointestinal General gastrointestinal: no absent bowel sounds, decreased bowel sounds, distended, hepatomegaly, no hyperactive bowel sounds, normal bowel sounds, no organomegaly, no rigid, no scaphoid, no soft, no splenomegaly, no tenderness, no umbilical hernia, no ventral hernia - Integumentary Integumentary: no calor, no cellulitis, no cyanotic, no decreased turgor, no flushed, no jaundiced, normal, no normal turgor, pale, rash, no ulcer - Neurologic Neurologic: CNII-XII intact - Musculoskeletal Musculoskeletal: gait normal, generalized weakness, strength equal bilaterally, no right sided weakness, no left sided weakness - Psychiatric Psychiatric: A&O x's 3, appropriate affect, no intact judgment & insight - Labs CBC & Chem 7: 08/10/16 10:00 08/10/16 10:00 Labs: Abnormal Lab Results - Last 24 Hours (Table) 08/11/16 08/11/16 Range/Units 05:46 06:58 POC Glucose (mg/dL) 151 H 129 H (75-99) mg/dL Assessment and Plan Plan: 1 acute hypoxic respiratory distress with pulse ox of 80% but no tachypnea, tachycardia: Combination of pulmonary fibrosis, infection, ARDS, COPD exacerbation and possible metastasis. 2 COPD exacerbation: Solu-Medrol and to oral prednisone, DuoNeb, Pulmicort and will consult pulmonary. 3 advance pulmonary fibrosis: Long-standing has been seen pulmonary for long time continue current pulmonary medication at this point. 4 febrile illness: Pulmonary mass in the left upper lobe is known to pulmonary medicine. 5 CAD: No chest pain or angina patient remain on Tenormin and losartan resume medication. 6 hyperlipidemia: Not on any medication currently. 7 arrhythmia: Has been doing very well on atenolol. 8 severe GERD/GI prophylaxis: Patient will be on Nexium 40 mg daily. 9 DVT prophylaxis: Patient will be on heparin subcutaneous. CODE STATUS: Full code. Discharge plan: Return home tomorrow Impression and plan of care have been directed as dictated by the signing physician. Ratna rAredondo nurse practitioner acting as scribe for signing physician. Time with Patient: Greater than 30
[2016-08-11] MEDS: HYDROcodone/APAP 5-325MG 1 EACH TAB PO PRN ×2 (16:05→22:20)
[2016-08-11 17:08] LABS: Glucose,Whole Blood 96 mg/dL (75-99)
[2016-08-11 20:18] LABS: Glucose,Whole Blood 115 mg/dL (75-99)
[2016-08-11] MEDS: predniSONE 10 MG TAB PO SCH (21:01)
[2016-08-11] MEDS: MELATONIN 5 MG TABLET PO SCH (21:01)
[2016-08-11] MEDS ORDERED: IPRATROPIUM-ALBUTEROL 3 ML NEB INHALATION PRN (21:13)
[2016-08-12] MEDS: HYDROcodone/APAP 5-325MG 1 EACH TAB PO PRN ×2 (06:22→12:25)
[2016-08-12 07:57] VITALS: BP 137/74; PULSE 74; TEMP 98.3
[2016-08-12] MEDS: ATENOLOL 25 MG TAB PO SCH (09:22)
[2016-08-12] MEDS: predniSONE 10 MG TAB PO SCH (09:22)
[2016-08-12] MEDS: LOSARTAN 50 MG TAB PO SCH (09:22)
[2016-08-12] MEDS: PANTOPRAZOLE 40 MG TABLET PO SCH (09:22)
[2016-08-12] MEDS: POLYETHYLENE GLYCOL 3350 17 GM POWD.PACK PO SCH (09:22)
[2016-08-12] MEDS: amLODIPine 5 MG TAB PO SCH (09:22)
[2016-08-12] MEDS: IPRATROPIUM-ALBUTEROL 3 ML NEB INHALATION SCH ×2 (09:30→11:39)
--- NOTE | 2016-08-12 11:13 | P.PN ---
Subjective 75-year-old female with a history of a left upper lobe mass. She's had multiple bronchoscopies in attempts at biopsy which if all been unsuccessful. Was asked even sent to [facility] where she had a Pap smear and was again nondiagnostic. The decision at that point suggested that she probably had a bronchogenic carcinoma in the 1 images radiated it without a diagnosis. Unfortunately she will return to the hospital with chest pain. The computed tomography scan done on this admission shows that the mass is now extended into packed into the pectoralis minor muscle on the left. I did have a chance to speak to my partner Dr. Randhawa who takes care of her in the office. She does have a history of underlying pulmonary fibrosis. In addition, I was able to talk to Dr. Oquendo from radiation therapy. The plan would be possibly additional radiation to that area. I know Dr. Oquendo has seen her from radiation oncology. The patient could be discharged home with follow-up with my partner in the office. She also has a follow-up with her radiation oncologist. Other than that she is doing reasonably well. Objective - Vital Signs Vital signs: Vital Signs Temp 98.3 F 08/12/16 07:00 Pulse 74 08/12/16 07:00 Resp 16 08/12/16 07:00 BP 137/74 08/12/16 07:00 Pulse Ox 94 L 08/12/16 07:00 Intake & Output 08/11/16 08/12/16 08/12/16 18:59 06:59 18:59 Intake Total 480 1770 Balance 480 1770 Intake: Oral 480 1770 Other: # Voids 3 2 - Exam No acute distress, oriented 3. HEENT examination is grossly unremarkable. Mucous membranes are moist. No oral lesions. Neck supple. Full range of motion. No adenopathy or thyromegaly. Neck veins are flat. Cardiovascular examination reveals regular rhythm rate. S1-S2 normal. Lungs reveal bibasilar crackles. Crackles are Velcro in nature. Consistent with the pulmonary fibrosis. She is mildly restricted in her breathing. Abdomen soft bowel sounds are heard. Extremities are intact. - Labs CBC & Chem 7: 08/10/16 10:00 08/10/16 10:00 Labs: Abnormal Lab Results - Last 24 Hours (Table) 08/11/16 08/11/16 Range/Units 11:33 20:16 POC Glucose (mg/dL) 137 H 115 H (75-99) mg/dL Assessment and Plan (1) Mass of lung Status: Acute (2) Pulmonary fibrosis Status: Acute Plan: Plan dated 08/11/2016 The patient has a pleural-based mass in the left upper lobe. She also suffers some pulmonary fibrosis. Was recently started on a new anti-fibrotic drug for her pulmonary fibrosis although she has not taken her first dose. Presented to the emergency department with pain and shortness of breath. I did speak to Dr. Prieto is aware of the mass. She's had multiple bronchoscopies without diagnosis. We'll sent to [facility] and still had no diagnoses. Radiated for presumed lung cancer. Her primary problem right now is pain. The mass now seems to be invading the pectoralis minor muscle. Plan dated 08/12/2016 The patient could be discharged home. I spoke to Dr. Garces about the patient. I also had Dr. Oquendo for radiation therapy come and see her. I did tell her to call the office on Sunday morning to get an appointment with my partner. She can discuss the next plans with him. I suspect she'll probably need some radiation to the left apex because a lesion now has extended into the left pectoralis minor muscle. Time with Patient: Less than 30
== END 2016-08-12 12:40 | disposition home or self-care (01) | DRG 190 ==
LOC: EC 09:41 → 5ONC 14:20
PROVIDERS: ADMIT Internal Medicine Geriatric Medicine; ATTEND Internal Medicine Geriatric Medicine
DX: J44.1 Chronic obstructive pulmonary disease with (acute) exacerbation (principal); J96.01 Acute respiratory failure with hypoxia; J84.112 Idiopathic pulmonary fibrosis; K21.9 Gastro-esophageal reflux disease without esophagitis; I10 Essential (primary) hypertension; E78.5 Hyperlipidemia, unspecified; M19.90 Unspecified osteoarthritis, unspecified site; I25.10 Atherosclerotic heart disease of native coronary artery without angina pectoris; R61 Generalized hyperhidrosis; R00.1 Bradycardia, unspecified; R53.1 Weakness; J30.9 Allergic rhinitis, unspecified; R07.9 Chest pain, unspecified; R50.9 Fever, unspecified; R51 Headache; M54.2 Cervicalgia; M54.9 Dorsalgia, unspecified; Z90.710 Acquired absence of both cervix and uterus; Z90.49 Acquired absence of other specified parts of digestive tract; Z99.81 Dependence on supplemental oxygen; Z98.42 Cataract extraction status, left eye; Z98.41 Cataract extraction status, right eye; Z88.1 Allergy status to other antibiotic agents; Z91.040 Latex allergy status; Z79.899 Other long term (current) drug therapy; Z92.3 Personal history of irradiation; Z87.891 Personal history of nicotine dependence; Z88.2 Allergy status to sulfonamides; Z91.048 Other nonmedicinal substance allergy status; Z79.891 Long term (current) use of opiate analgesic; Z79.52 Long term (current) use of systemic steroids; Z82.49 Family history of ischemic heart disease and other diseases of the circulatory system; Z90.721 Acquired absence of ovaries, unilateral; Z86.010 Personal history of colon polyps; Z86.79 Personal history of other diseases of the circulatory system
CPT/HCPCS: 36415; 71020; 71275; 80053; 82550; 82553; 83605; 83735; 83880; 84484; 85025; 85379; 85610; 85730; 87040; 87502; 93005; 94640; 94760; 96360; 96361; 99285

== ENCOUNTER 2016-08-14 10:13 | Emergency (ER) | payer MEDICARE, BC ==
[2016-08-14] MEDS ORDERED: SODIUM CHLORIDE 0.9% 1,000 ML IV STA (10:59)
[2016-08-14 11:11] VITALS: RESP 15
[2016-08-14 11:18] LABS: Basophils % (A) 0 %; CH 32.6; Eosinophils # (A) 0.1 k/uL (0-0.7); Eosinophils % (A) 1 %; HCT 45.2 % (34.0-46.0); HDW 2.58; HGB 15.1 gm/dL (11.4-16.0); Luc % (Auto) 1; Lymphocytes # (A) 0.6 k/uL (1.0-4.8); Lymphocytes % (A) 6 %; MCH 32.1 pg (25.0-35.0); MCHC 33.4 g/dL (31.0-37.0); MCV 96.2 fL (80.0-100.0); Monocytes # (A) 0.5 k/uL (0-1.0); Monocytes % (A) 5 %; Neutrophils # (A) 8.3 k/uL (1.3-7.7); Neutrophils % (A) 86 %; RDW 13.2 % (11.5-15.5); WBC 9.6 k/uL (3.8-10.6); WBC (Perox) 10.07
[2016-08-14 11:29] LABS: ALT 27 U/L (9-52); AST 23 U/L (14-36); Alkaline Phosphatase 63 U/L (38-126); Anion Gap 11 mmol/L; Blood Urea Nitrogen 19 mg/dL (7-17); Calcium 9.8 mg/dL (8.4-10.2); Carbon Dioxide 26 mmol/L (22-30); Chloride 97 mmol/L (98-107); Glucose 110 mg/dL (74-99); Non-African American GFR(MDRD) >60 (>60 ml/min/1.73 sqM); Sodium 134 mmol/L (137-145)
[2016-08-14 11:30] LABS: Prothrombin Time 10.5 sec (9.0-12.0)
[2016-08-14 11:43] LABS: Creatine Kinase 27 U/L (30-135)
--- NOTE | 2016-08-14 11:44 | ED ---
General Adult HPI - General Chief complaint: Recheck/Abnormal Lab/Rx Stated complaint: low blood pressure Time Seen by Provider: 08/14/16 10:43 Source: patient, family Mode of arrival: wheelchair - History of Present Illness Initial comments: This 75-year-old white female presents with her with a complaint of low blood pressure today. They relate that she was just discharged from the hospital 2 days ago. She was hospitalized at that time for some difficulty in breathing. Her blood pressure pill it was elevated while in the hospital and Norvasc 5 mg was added to her antihypertensive regimen. She did have this medication yesterday. Her held today as her blood pressure was quite low. The lowest blood pressure was 71/53 with a heart rate of 131 at approximately 8 AM today. She apparently was quite fatigued, felt weak, sweaty , and clammy at that time. Her blood pressures back to normal at this point time and she feels fine. She denies any known fever or chills recently. She denies any urinary frequency urgency or hematuria. She states that her shortness of breath has improved from previous hospitalizations. They called her primary care physician and they sent her to the ER for further evaluation and treatment. They do note that she was diagnosed with a left upper lobe lung mass which apparently is growing into her muscle. This was treated with radiation therapy recently but her recent CAT scan did show a larger tumor. She apparently previously had been evaluated at [facility] as well and they were unable to get a tissue biopsy of the lesion sore treating it for suspected cancer. No other complaints or modifying factors. - Related Data Home Medications Medication Instructions Recorded Confirmed Atenolol [Tenormin] 25 mg PO BID 09/29/13 08/14/16 Losartan Potassium [Cozaar] 100 mg PO DAILY 09/25/15 08/14/16 HYDROcodone/APAP 5-325MG [Fossil 0.5 - 1 tab PO BID PRN 08/03/16 08/14/16 5-325] L.acidoph,Paracasei, B.lactis 1 tab PO DAILY@1200 08/03/16 08/14/16 [Probiotic] Polyethylene Glycol 3350 [Miralax] 17 gm PO DAILY 08/03/16 08/14/16 predniSONE 5 mg PO DAILY 08/03/16 08/14/16 Ranitidine HCl [Zantac] 300 mg PO BID 08/14/16 08/14/16 Previous Rx's Medication Instructions Recorded amLODIPine [Norvasc] 5 mg PO DAILY #30 tab 08/11/16 Allergies Allergy/AdvReac Type Severity Reaction Status Date / Time latex Allergy Rash/Hives Verified 08/14/16 11:13 levofloxacin [From Levaquin] Allergy Nausea & Verified 08/14/16 11:13 Vomiting Sulfa (Sulfonamide Allergy Rash/Hives Verified 08/14/16 11:13 Antibiotics) adhesive AdvReac Rash/Hives Verified 08/14/16 11:13 Review of Systems ROS Statement: Those systems with pertinent positive or pertinent negative responses have been documented in the HPI. ROS Other: All systems not noted in ROS Statement are negative. Past Medical History Past Medical History: COPD, GERD/Reflux, Hypertension, Osteoarthritis (OA), Respiratory Disorder Additional Past Medical History / Comment(s): slight emphysema," irregular heart beat, PT DENIES CANCER OF ANY KIND BUT"NODULE LEFT UPPER LOBE KEPT GETTING LARER SO THEY DID treated with radiation 2015, pulmonary fibrosis, O2 @ 2 liter while sleeping, abdominal discomfort, HAD PNE VACCINE AFTER AGE 67-NOT SURE OF DATE. History of Any Multi-Drug Resistant Organisms: None Reported Past Surgical History: Cholecystectomy, EPS, Heart Catheterization, Hysterectomy Additional Past Surgical History / Comment(s): 05-02-12 BRONCH W/ BX. LEFT LUNG CT GUIDED NEEDLE BX 01/25/15, BRONCH/BX 02-17-15,"BENIGN" NASAL POLYPS REMOVED-BENIGN, ESSENCE CATARACTS, COLONOSCOPY/POLYPECTOMY-BENIGN, HYSTERECTOMY AGE 41 STILL HAS RT OVARY.EGD. Past Anesthesia/Blood Transfusion Reactions: No Reported Reaction Past Psychological History: No Psychological Hx Reported Additional Psychological History / Comment(s): PT LIVES WITH SPOUSE,IS INDEPENDANT, HAS TOTAL OF 4 STEPS TO GET INTO HOME. NO PETS. HAS HOME 02. NO OUTSIDE SERVICES. Smoking Status: Former smoker Past Alcohol Use History: None Reported Additional Past Alcohol Use History / Comment(s): smoked 50 years 1ppd quit Past Drug Use History: None Reported - Past Family History Daughter(s) Family Medical History: Blood Disorder, Deep Vein Thrombosis (DVT) Additional Family Medical History / Comment(s): Factor V,,, GRANDAUGHTER HAS FACTOR V WELL Father Additional Family Medical History / Comment(s): VALVE REPLACEMENT Mother Family Medical History: No Reported History General Exam - General Exam Comments Initial Comments: GENERAL: The patient is well nourished and well hydrated. VITAL SIGNS: Heart rate, blood pressure, respiratory rate reviewed as recorded in nurse's notes. EYES: Pupils are round and reactive. Extraocular movements are intact. No conjunctival / lid redness or swelling. ENT: No external evidence of injury, swelling, or ecchymosis. Airway is patent. Throat is clear. NECK: Nontender. No swelling or evidence of injury. No subcutaneous emphysema. Trachea is midline. No thyroid mass. HEART: Regular rate and rhythm. Good peripheral pulses. LUNGS/CHEST: Breath sounds clear and equal bilaterally. No rales, rhonchi, or wheezes. No ecchymosis, subcutaneous emphysema, or tenderness. ABDOMEN: Abdomen soft without tenderness. No palpable masses or organomegaly. No peritoneal signs. No abdominal wall swelling or ecchymosis. EXTREMITIES: No extremity tenderness. Normal muscle tone and function. No thoracolumbar tenderness. NEUROLOGIC: Sensation is grossly intact. Cranial nerve exam reveals face is symmetrical, tongue is midline, speech is clear. SKIN: No abrasions or ecchymosis is noted. No induration or masses noted. PSYCHIATRIC: Alert and oriented. Appropriate behavior and judgment. Course Vital Signs 08/14/16 08/14/16 08/14/16 10:29 11:00 11:14 Temperature 98.1 F Pulse Rate 86 78 Pulse Rate [ 78 Bilateral Sitting Apical] Respiratory 18 15 Rate Blood Pressure 104/62 104/57 O2 Sat by Pulse 95 98 Oximetry Medical Decision Making - Medical Decision Making The patient was seen and examined. All diagnostics were reviewed. EKG shows a normal sinus rhythm with a sinus arrhythmia at a rate of 71. There is no acute ST-T wave changes identified. The KS interval is 124, castration is 84, and the QTc interval is 421. An IV is started and she is mildly hydrated. The laboratory is unremarkable. The chest x-ray showed evidence of some COPD, cardiomegaly, pulmonary fibrosis, and chronic pleural changes to the left lung base. Overall, her blood pressure and heart rate have remained stable in the emergency department. The case is discussed with Dr. Oro and he feels comfortable with sending her home and having her follow-up with him tomorrow. She already has an appointment for tomorrow for her routine six-month checkup. She is remained quite stable and asymptomatic in the emergency department. They 're instructed to stop the Norvasc. Return parameters are discussed and she leaves in no distress. - Lab Data Result diagrams: 08/14/16 11:08 08/14/16 11:08 Lab Results 08/14/16 08/14/16 08/14/16 Range/Units 11:08 11:08 11:08 WBC 9.6 (3.8-10.6) k/uL RBC 4.70 (3.80-5.40) m/uL Hgb 15.1 (11.4-16.0) gm/dL Hct 45.2 (34.0-46.0) % MCV 96.2 (80.0-100.0) fL MCH 32.1 (25.0-35.0) pg MCHC 33.4 (31.0-37.0) g/dL RDW 13.2 (11.5-15.5) % Plt Count 247 (150-450) k/uL Neutrophils % 86 % Lymphocytes % 6 % Monocytes % 5 % Eosinophils % 1 % Basophils % 0 % Neutrophils # 8.3 H (1.3-7.7) k/uL Lymphocytes # 0.6 L (1.0-4.8) k/uL Monocytes # 0.5 (0-1.0) k/uL Eosinophils # 0.1 (0-0.7) k/uL Basophils # 0.0 (0-0.2) k/uL PT (9.0-12.0) sec INR (<1.1) APTT (22.0-30.0) sec Sodium 134 L (137-145) mmol/L Potassium 5.0 (3.5-5.1) mmol/L Chloride 97 L (98-107) mmol/L Carbon Dioxide 26 (22-30) mmol/L Anion Gap 11 mmol/L BUN 19 H (7-17) mg/dL Creatinine 0.80 (0.52-1.04) mg/dL Est GFR (MDRD) Af Amer >60 (>60 ml/min/1.73 sqM) Est GFR (MDRD) Non-Af >60 (>60 ml/min/1.73 sqM) Glucose 110 H (74-99) mg/dL Calcium 9.8 (8.4-10.2) mg/dL Total Bilirubin 1.0 (0.2-1.3) mg/dL AST 23 (14-36) U/L ALT 27 (9-52) U/L Alkaline Phosphatase 63 (38-126) U/L Total Creatine Kinase 27 L (30-135) U/L CK-MB (CK-2) 0.4 (0.0-2.4) ng/mL CK-MB (CK-2) Rel Index 1.5 Troponin I <0.012 (0.000-0.034) ng/mL Total Protein 7.0 (6.3-8.2) g/dL Albumin 4.3 (3.5-5.0) g/dL TSH 2.120 (0.465-4.680) mIU/L 08/14/16 Range/Units 11:08 WBC (3.8-10.6) k/uL RBC (3.80-5.40) m/uL Hgb (11.4-16.0) gm/dL Hct (34.0-46.0) % MCV (80.0-100.0) fL MCH (25.0-35.0) pg MCHC (31.0-37.0) g/dL RDW (11.5-15.5) % Plt Count (150-450) k/uL Neutrophils % % Lymphocytes % % Monocytes % % Eosinophils % % Basophils % % Neutrophils # (1.3-7.7) k/uL Lymphocytes # (1.0-4.8) k/uL Monocytes # (0-1.0) k/uL Eosinophils # (0-0.7) k/uL Basophils # (0-0.2) k/uL PT 10.5 (9.0-12.0) sec INR 1.0 (<1.1) APTT 19.2 L (22.0-30.0) sec Sodium (137-145) mmol/L Potassium (3.5-5.1) mmol/L Chloride (98-107) mmol/L Carbon Dioxide (22-30) mmol/L Anion Gap mmol/L BUN (7-17) mg/dL Creatinine (0.52-1.04) mg/dL Est GFR (MDRD) Af Amer (>60 ml/min/1.73 sqM) Est GFR (MDRD) Non-Af (>60 ml/min/1.73 sqM) Glucose (74-99) mg/dL Calcium (8.4-10.2) mg/dL Total Bilirubin (0.2-1.3) mg/dL AST (14-36) U/L ALT (9-52) U/L Alkaline Phosphatase (38-126) U/L Total Creatine Kinase (30-135) U/L CK-MB (CK-2) (0.0-2.4) ng/mL CK-MB (CK-2) Rel Index Troponin I (0.000-0.034) ng/mL Total Protein (6.3-8.2) g/dL Albumin (3.5-5.0) g/dL TSH (0.465-4.680) mIU/L Disposition Clinical Impression: Weakness generalized Disposition: HOME SELF-CARE Condition: Good Instructions: Weakness (ED) Additional Instructions: Please stop the Norvasc medication. Referrals: Higinio Oro MD [Primary Care Provider] - 08/15/16 Time of Disposition: 12:51
[2016-08-14 11:47] LABS: Partial Thromboplastin Time 19.2 sec (22.0-30.0)
--- NOTE | 2016-08-14 11:47 | XR ---
EXAMINATION TYPE: XR chest 2V DATE OF EXAM: 08/14/2016 11:42 AM HISTORY: Weakness. REFERENCE: Previous study dated 08/10/2016. FINDINGS: The lungs are overinflated. The heart is enlarged. There is chronic interstitial change lik susy representing interstitial fibrosis. There is blunting of the left CP angle. This appears chronic. IMPRESSION: 1. COPD. 2. CARDIOMEGALY. 3. PULMONARY FIBROSIS. 4. CHRONIC PLEURAL CHANGE, LEFT LUNG BASE.
[2016-08-14 11:56] LABS: Creatine Kinase MB 0.4 ng/mL (0.0-2.4); Troponin I <0.012 ng/mL (0.000-0.034)
[2016-08-14 13:12] VITALS: BP 119/57; PULSE 74; TEMP 97.9
== END 2016-08-14 13:13 | disposition home or self-care (01) ==
LOC: EC 10:13
DX: R53.1 Weakness (principal); J44.9 Chronic obstructive pulmonary disease, unspecified; I51.7 Cardiomegaly; J84.10 Pulmonary fibrosis, unspecified; I10 Essential (primary) hypertension; M19.90 Unspecified osteoarthritis, unspecified site; K21.9 Gastro-esophageal reflux disease without esophagitis; Z87.891 Personal history of nicotine dependence; Z91.040 Latex allergy status; Z88.2 Allergy status to sulfonamides; Z88.1 Allergy status to other antibiotic agents; Z91.048 Other nonmedicinal substance allergy status; Z79.899 Other long term (current) drug therapy
CPT/HCPCS: 36415; 71020; 80053; 82550; 82553; 84443; 84484; 85025; 85610; 85730; 87040; 93005; 96360; 96361; 99285

== ENCOUNTER 2016-08-29 08:47 | Day surgery (SDC) | payer MEDICARE, BC ==
[2016-08-29 09:32] LABS: INR 1.1 (<1.1); Prothrombin Time 11.1 sec (9.0-12.0)
[2016-08-29] MEDS ORDERED: ALPRAZolam 0.25 MG TAB PO STA (09:53)
[2016-08-29 09:56] VITALS: BP 132/64; PULSE 63; RESP 16; TEMP 98.5
== END 2016-08-29 10:30 | disposition home or self-care (01) ==
LOC: RADPROMAIN 08:47
PROVIDERS: ATTEND Internal Medicine
DX: R22.2 Localized swelling, mass and lump, trunk (principal); Z88.8 Allergy status to other drugs, medicaments and biological substances
CPT/HCPCS: 36415; 85049; 85610

== ENCOUNTER 2017-02-07 08:40 | Inpatient (IN) | payer MEDICARE, BC ==
[2017-02-07] MEDS ORDERED: IPRATROPIUM-ALBUTEROL 3 ML NEB INHALATION STA (09:27)
[2017-02-07] MEDS ORDERED: methylPREDNISolone SOD SUCCI 125 MG/2 ML VIAL IV STA (09:27)
--- NOTE | 2017-02-07 09:30 | ED ---
General Adult HPI - General Chief complaint: Shortness of Breath Stated complaint: KAREEM Time Seen by Provider: 02/07/17 08:45 Source: patient, family, EMS, RN notes reviewed Mode of arrival: EMS Limitations: no limitations - History of Present Illness Initial comments: Patient is a pleasant 76-year-old female presenting to the emergency department with difficulty in breathing. Symptoms have progressively worsened over the past 3-4 days. Patient may have had a fever last night. Patient does have cough with occasional yellow sputum. No chest pain. Heart rate has been as high as 133 at home with exertion. Patient states she is only able to walk between 2 and 10 feet before having to rest. - Related Data Home Medications Medication Instructions Recorded Confirmed Atenolol [Tenormin] 25 mg PO BID 09/29/13 02/07/17 Losartan Potassium [Cozaar] 100 mg PO DAILY 09/25/15 02/07/17 HYDROcodone/APAP 5-325MG [[place] 1 tab PO Q6H PRN 08/03/16 02/07/17 5-325] L.acidoph,Paracasei, B.lactis 1 tab PO DAILY@1200 08/03/16 02/07/17 [Probiotic] predniSONE 5 mg PO DAILY 08/03/16 02/07/17 Ranitidine HCl [Zantac] 300 mg PO BID 08/14/16 02/07/17 Pirfenidone [Esbriet] 267 mg PO TID 08/23/16 02/07/17 Allergies Allergy/AdvReac Type Severity Reaction Status Date / Time latex Allergy Rash/Hives Verified 02/07/17 09:27 levofloxacin [From Levaquin] Allergy Nausea & Verified 02/07/17 09:27 Vomiting Sulfa (Sulfonamide Allergy Rash/Hives Verified 02/07/17 09:27 Antibiotics) adhesive AdvReac Rash/Hives Verified 02/07/17 09:27 Review of Systems ROS Statement: Those systems with pertinent positive or pertinent negative responses have been documented in the HPI. ROS Other: All systems not noted in ROS Statement are negative. Constitutional: Reports: fever Eyes: Denies: eye pain ENT: Denies: ear pain Respiratory: Reports: cough, dyspnea Cardiovascular: Denies: chest pain Endocrine: Denies: fatigue Gastrointestinal: Denies: abdominal pain Genitourinary: Denies: dysuria Musculoskeletal: Denies: back pain Skin: Denies: rash Neurological: Denies: headache Past Medical History Past Medical History: COPD, GERD/Reflux, Hypertension, Osteoarthritis (OA), Respiratory Disorder Additional Past Medical History / Comment(s): slight emphysema," irregular heart beat, PT DENIES CANCER OF ANY KIND BUT"NODULE LEFT UPPER LOBE KEPT GETTING LARER SO THEY DID treated with radiation 2016, pulmonary fibrosis, O2 @ 2 liter while sleeping, abdominal discomfort, HAD PNE VACCINE AFTER AGE 67-NOT SURE OF DATE. History of Any Multi-Drug Resistant Organisms: None Reported Past Surgical History: Cholecystectomy, EPS, Heart Catheterization, Hysterectomy Additional Past Surgical History / Comment(s): 05-02-12 BRONCH W/ BX. LEFT LUNG CT GUIDED NEEDLE BX 01/25/15, BRONCH/BX 02-17-15,"BENIGN" NASAL POLYPS REMOVED-BENIGN, ESSENCE CATARACTS, COLONOSCOPY/POLYPECTOMY-BENIGN, HYSTERECTOMY AGE 41 STILL HAS RT OVARY.EGD. Past Anesthesia/Blood Transfusion Reactions: No Reported Reaction Past Psychological History: No Psychological Hx Reported Smoking Status: Former smoker Past Alcohol Use History: None Reported Past Drug Use History: None Reported - Past Family History Daughter(s) Family Medical History: Blood Disorder, Deep Vein Thrombosis (DVT) Additional Family Medical History / Comment(s): Factor V,,, GRANDAUGHTER HAS FACTOR V WELL Father Additional Family Medical History / Comment(s): VALVE REPLACEMENT Mother Family Medical History: No Reported History General Exam Limitations: no limitations General appearance: alert, in no apparent distress Head exam: Present: atraumatic Eye exam: Present: normal appearance ENT exam: Present: normal oropharynx Neck exam: Present: normal inspection Respiratory exam: Present: wheezes, decreased breath sounds Cardiovascular Exam: Present: regular rate, normal rhythm GI/Abdominal exam: Present: soft. Absent: tenderness Extremities exam: Present: normal inspection. Absent: pedal edema, calf tenderness Neurological exam: Present: alert Psychiatric exam: Present: normal affect, normal mood Skin exam: Present: normal color Course Vital Signs 02/07/17 02/07/17 02/07/17 08:41 09:47 09:58 Temperature 98.2 F Pulse Rate 77 74 78 Respiratory 22 22 Rate Blood Pressure 165/77 O2 Sat by Pulse 90 L Oximetry 02/07/17 10:36 Temperature Pulse Rate 78 Respiratory 22 Rate Blood Pressure 158/70 O2 Sat by Pulse 92 L Oximetry - Reevaluation(s) Reevaluation #1: 02/07/17 09:28 Pulse ox 88% on 2 L and increased to 3 L. Pulse ox remains 88-90% on 3 L. EKG Findings - EKG Comments: EKG Findings:: Normal sinus rhythm 75. RI 132. QRS 86. QT 388. QTC 433. Normal axis. Normal QRS. No acute ST change. Medical Decision Making - Medical Decision Making Patient reevaluated and resting comfortably in bed. Patient and updated on results and plan. Case discussed in detail with Dr. Romano, who will admit for Dr. Oro, time. Patient does see Dr. Randhawa. She does request computed tomography scan and BNP will be ordered. - Lab Data Result diagrams: 02/07/17 08:58 02/07/17 08:58 Lab Results 02/07/17 02/07/17 02/07/17 Range/Units 08:58 08:58 08:58 WBC 9.4 (3.8-10.6) k/uL RBC 4.01 (3.80-5.40) m/uL Hgb 13.1 (11.4-16.0) gm/dL Hct 39.8 (34.0-46.0) % MCV 99.3 (80.0-100.0) fL MCH 32.6 (25.0-35.0) pg MCHC 32.8 (31.0-37.0) g/dL RDW 13.0 (11.5-15.5) % Plt Count 276 (150-450) k/uL Neutrophils % 83 % Lymphocytes % 6 % Monocytes % 8 % Eosinophils % 2 % Basophils % 1 % Neutrophils # 7.8 H (1.3-7.7) k/uL Lymphocytes # 0.5 L (1.0-4.8) k/uL Monocytes # 0.7 (0-1.0) k/uL Eosinophils # 0.2 (0-0.7) k/uL Basophils # 0.1 (0-0.2) k/uL PT (9.0-12.0) sec INR (<1.2) APTT (22.0-30.0) sec Sodium 133 L (137-145) mmol/L Potassium 4.8 (3.5-5.1) mmol/L Chloride 98 (98-107) mmol/L Carbon Dioxide 25 (22-30) mmol/L Anion Gap 10 mmol/L BUN 11 (7-17) mg/dL Creatinine 0.72 (0.52-1.04) mg/dL Est GFR (MDRD) Af Amer >60 (>60 ml/min/1.73 sqM) Est GFR (MDRD) Non-Af >60 (>60 ml/min/1.73 sqM) Glucose 104 H (74-99) mg/dL Calcium 9.3 (8.4-10.2) mg/dL Total Bilirubin 0.9 (0.2-1.3) mg/dL AST 39 H (14-36) U/L ALT 38 (9-52) U/L Alkaline Phosphatase 80 (38-126) U/L Total Creatine Kinase <20 L (30-135) U/L CK-MB (CK-2) <0.2 (0.0-2.4) ng/mL CK-MB (CK-2) Rel Index Troponin I <0.012 (0.000-0.034) ng/mL Total Protein 6.6 (6.3-8.2) g/dL Albumin 3.9 (3.5-5.0) g/dL 02/07/17 Range/Units 08:58 WBC (3.8-10.6) k/uL RBC (3.80-5.40) m/uL Hgb (11.4-16.0) gm/dL Hct (34.0-46.0) % MCV (80.0-100.0) fL MCH (25.0-35.0) pg MCHC (31.0-37.0) g/dL RDW (11.5-15.5) % Plt Count (150-450) k/uL Neutrophils % % Lymphocytes % % Monocytes % % Eosinophils % % Basophils % % Neutrophils # (1.3-7.7) k/uL Lymphocytes # (1.0-4.8) k/uL Monocytes # (0-1.0) k/uL Eosinophils # (0-0.7) k/uL Basophils # (0-0.2) k/uL PT 10.8 (9.0-12.0) sec INR 1.1 (<1.2) APTT 21.8 L (22.0-30.0) sec Sodium (137-145) mmol/L Potassium (3.5-5.1) mmol/L Chloride (98-107) mmol/L Carbon Dioxide (22-30) mmol/L Anion Gap mmol/L BUN (7-17) mg/dL Creatinine (0.52-1.04) mg/dL Est GFR (MDRD) Af Amer (>60 ml/min/1.73 sqM) Est GFR (MDRD) Non-Af (>60 ml/min/1.73 sqM) Glucose (74-99) mg/dL Calcium (8.4-10.2) mg/dL Total Bilirubin (0.2-1.3) mg/dL AST (14-36) U/L ALT (9-52) U/L Alkaline Phosphatase (38-126) U/L Total Creatine Kinase (30-135) U/L CK-MB (CK-2) (0.0-2.4) ng/mL CK-MB (CK-2) Rel Index Troponin I (0.000-0.034) ng/mL Total Protein (6.3-8.2) g/dL Albumin (3.5-5.0) g/dL - Radiology Data Radiology results: image reviewed (Chest x-ray shows interstitial changes, more so in the upper lobes.) Disposition Clinical Impression: Acute exacerbation of chronic obstructive airways disease, Pulmonary fibrosis Disposition: ADMITTED IP TO THIS [facility] Referrals: Higinio Oro MD [Primary Care Provider] - 1-2 days Decision Time: 11:43
[2017-02-07 09:48] LABS: Basophils # (A) 0.1 k/uL (0-0.2); Basophils % (A) 1 %; CH 34.2; CHCM 34.6; Eosinophils # (A) 0.2 k/uL (0-0.7); Eosinophils % (A) 2 %; HCT 39.8 % (34.0-46.0); HDW 2.69; HGB 13.1 gm/dL (11.4-16.0); Luc % (Auto) 1; Lymphocytes # (A) 0.5 k/uL (1.0-4.8); Lymphocytes % (A) 6 %; MCH 32.6 pg (25.0-35.0); MCHC 32.8 g/dL (31.0-37.0); MCV 99.3 fL (80.0-100.0); Mean Platelet Volume 8.2; Monocytes # (A) 0.7 k/uL (0-1.0); Monocytes % (A) 8 %; Neutrophils # (A) 7.8 k/uL (1.3-7.7); Neutrophils % (A) 83 %; RBC 4.01 m/uL (3.80-5.40); WBC 9.4 k/uL (3.8-10.6); WBC (Perox) 9.34
[2017-02-07 10:04] LABS: Partial Thromboplastin Time 21.8 sec (22.0-30.0)
[2017-02-07 10:06] LABS: INR 1.1 (<1.2); Prothrombin Time 10.8 sec (9.0-12.0)
[2017-02-07 10:10] LABS: ALT 38 U/L (9-52); AST 39 U/L (14-36); Alkaline Phosphatase 80 U/L (38-126); Anion Gap 10 mmol/L; Blood Urea Nitrogen 11 mg/dL (7-17); Calcium 9.3 mg/dL (8.4-10.2); Carbon Dioxide 25 mmol/L (22-30); Chloride 98 mmol/L (98-107); Glucose 104 mg/dL (74-99); Non-African American GFR(MDRD) >60 (>60 ml/min/1.73 sqM); Potassium 4.8 mmol/L (3.5-5.1); Sodium 133 mmol/L (137-145); Total Bilirubin 0.9 mg/dL (0.2-1.3); Total Protein 6.6 g/dL (6.3-8.2)
[2017-02-07 10:17] LABS: Creatine Kinase <20 U/L (30-135)
[2017-02-07 10:29] LABS: Creatine Kinase MB <0.2 ng/mL (0.0-2.4); Troponin I <0.012 ng/mL (0.000-0.034)
--- NOTE | 2017-02-07 10:35 | XR ---
EXAMINATION TYPE: XR chest 2V DATE OF EXAM: 02/07/2017 COMPARISON: Chest x-ray August 14, 2016. CTA chest February 10, 2017. HISTORY: Difficulty in breathing. History of pulmonary fibrosis. TECHNIQUE: Frontal and lateral views of the chest are obtained. FINDINGS: There is persistent diffuse interstitial fibrosis bilaterally. There is new opacity bilate ral upper lungs worrisome for developing edema and/or infiltrates. There is persistent left basilar o pacity consistent with fibrosis and pleural thickening. The cardiac silhouette size remains enlarged with atherosclerotic thoracic aorta. The osseous structures are demineralized. Degenerative change in both shoulders is present. IMPRESSION: Cardiomegaly with severe bilateral diffuse pulmonary fibrosis and new bilateral upper lo be infiltrates and/or edema.
[2017-02-07] MEDS ORDERED: IPRATROPIUM-ALBUTEROL 3 ML NEB INHALATION PRN (11:44)
[2017-02-07] MEDS ORDERED: RX INFO: IV CONTRAST WAS GIVEN 1 EACH MISC MISCELLANE PRN (11:46)
[2017-02-07] MEDS ORDERED: AZITHROMYCIN 500 MG in SODIUM CHLORIDE 0.9% 250 ML IVPB SCH (14:00)
[2017-02-07] MEDS: IPRATROPIUM-ALBUTEROL 3 ML NEB INHALATION SCH ×3 (15:24→19:26)
--- NOTE | 2017-02-07 15:59 | CT ---
EXAMINATION TYPE: CT angio chest DATE OF EXAM: 02/07/2017 COMPARISON: 08/10/2016 HISTORY: Patient complains of severe difficulty breathing. CT DLP: 447 mGycm CONTRAST: CT chest with contrast and 3D reconstruction with MIP imaging is performed with IV Contrast, patient injected with 100 mL of Omnipaque 350. Contrast-enhanced CT of the chest was performed through the course of the pulmonary arteries with sandra g and mediastinal window settings submitted. 3D reconstruction with MIP imaging was also performed. PULMONARY ARTERIES: The pulmonary arteries and their major tributaries are patent. I do not see hakeem dence for sizable filling defect to suggest pulmonary embolic process. LUNGS: There is extensive pulmonary fibrosis noted. Bronchial wall thickening and bronchiectasis iden tified. Left upper lobe pleural-based nodule measuring 1.5 x 1.1 cm is nonspecific. Scattered areas o f pleural thickening and nodularity. Additional nodule left upper lobe measures 9.8 mm. 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 There is evidence of cardiomegaly. No evidence for mediastinal mass. No mediastinal lymph nodes greater than 1cm. HILAR STRUCTURES: No evidence for mass. No hilar lymph nodes greater than 1 cm. UPPER ABDOMEN: No significant abnormality is seen. IMPRESSION: 1. No evidence for Pulmonary embolism at this time. 2. Pulmonary fibrosis with areas of nodularity left upper lobe as discussed. Appropriate follow-up is advised.
[2017-02-07] MEDS: HYDROcodone/APAP 5-325MG 1 EACH TAB PO PRN (16:23)
--- NOTE | 2017-02-07 16:31 | P.HPIM ---
History of Present Illness H&P Date: 02/07/17 Chief Complaint: Shortness of breath 75-year-old female, patient of Dr. Rivero with a history of a well- established idiopathic pulmonary fibrosis on Esbriet,started on a new anti- fibrotic drug by Dr. 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 Patient presented to the emergency department at [facility] complaining of back pain between her shoulder blade area along with significant shortness of breath cough and wheezes and worsening symptoms compared to her baseline. Patient also developed to have fever, chills and mildly productive cough. She was out of breath and had an episode of gasping for past couple of days patient is at 2 L of oxygen at home is currently requiring 2.5 L. She does have some discomfort but it's related to her breathing but denies any chest pain. Patient denies any sick contact or recent travel. She is nauseous but denies any episode of vomiting, decreased appetite and generalized weakness. She has not noticed that her ankles are more swollen than before. Patient denies any exposure to TB, birds or bats CT was ordered in the ED to rule out pulmonary embolism which was negative. Patient does have a pleural mass but no significant vascular congestion or consolidation seen. Review of Systems Constitutional: Reports anorexia, Reports chills, Reports fatigue, Reports fever , Denies night sweats, Denies poor appetite Eyes: denies blurred vision, denies diplopia, denies itching, denies pain, denies loss of vision Ears: deny: decreased hearing, tinnitus Ears, nose, mouth and throat: Denies bleeding gums, Denies epistaxis, Denies headache, Denies hoarseness, Denies nasal discharge, Denies odynophagia, Denies sinus pressure, Denies sore throat Cardiovascular: Reports decreased exercise tolerance, Reports dyspnea on exertion, Reports edema, Reports leg edema, Denies chest pain, Denies high blood pressure, Denies palpitations Respiratory: Reports cough, Reports dyspnea Gastrointestinal: Reports nausea, Denies abdominal pain, Denies belching, Denies bloating, Denies BRBPR, Denies coffee ground emesis, Denies constipation , Denies diarrhea Genitourinary: Denies difficulty voiding, Denies hematuria, Denies incomplete emptying, Denies kidney stones, Denies urge incontinence, Denies urinary frequency, Denies vaginal discharge Musculoskeletal: Denies gait dysfunction, Denies low back pain, Denies muscle weakness Integumentary: Denies dryness, Denies rash, Denies wounds Neurological: Denies balance difficulties, Denies double vision, Denies loss of vision, Denies memory loss, Denies migraines, Denies motor disturbance, Denies numbness, Denies paralysis, Denies seizures Psychiatric: Denies anxiety, Denies depression Endocrine: Denies heat intolerance Past Medical History Past Medical History: COPD, GERD/Reflux, Hypertension, Osteoarthritis (OA), Respiratory Disorder Additional Past Medical History / Comment(s): PT DENIES CANCER OF ANY KIND BUT HAS "NODULE LEFT UPPER LOBE KEPT GETTING LARGER SO THEY DID treated with radiation 2015', pulmonary fibrosis, O2 @ 2 liter while sleeping and prn, past irregular heart beat, History of Any Multi-Drug Resistant Organisms: None Reported Past Surgical History: Cholecystectomy, EPS, Heart Catheterization, Hysterectomy Additional Past Surgical History / Comment(s): 2 BRONCHOSCOPIES W/ BX, LEFT LUNG CT GUIDED NEEDLE BX-PT STATES ALL RESULTS BENIGN, NASAL POLYPS REMOVED- BENIGN, ESSENCE CATARACTS/LENS IMPLANTS, EGD/COLONOSCOPY/POLYPECTOMY-BENIGN, HYSTERECTOMY AGE 41 STILL HAS RT OVARY, EP STUDY-UNABLE TO REPRODUCE IRREGULAR HEART BEAT. Past Anesthesia/Blood Transfusion Reactions: No Reported Reaction Smoking Status: Former smoker (Patient quit in May said that she smoked for more than 50 years around one pack a day) Additional Drug Use History / Comment(s): Patient wears 2 L of oxygen, lives with her is for 55 years, has 4 children one son - Past Family History Daughter(s) Family Medical History: Blood Disorder, Deep Vein Thrombosis (DVT) Additional Family Medical History / Comment(s): DAUGHTER HAS Factor V. GRANDAUGHTER HAS FACTOR V WELL Father Additional Family Medical History / Comment(s): VALVE REPLACEMENT. FATHER LIVED TO BE 93 YRS OLD. Mother Family Medical History: No Reported History Son(s) Family Medical History: Hypertension Medications and Allergies Home Medications Medication Instructions Recorded Confirmed Type Atenolol [Tenormin] 25 mg PO BID 09/29/13 02/07/17 History Losartan Potassium [Cozaar] 100 mg PO DAILY 09/25/15 02/07/17 History HYDROcodone/APAP 5-325MG [[place] 1 tab PO Q6H PRN 08/03/16 02/07/17 History 5-325] L.acidoph,Paracasei, B.lactis 1 tab PO DAILY@1200 08/03/16 02/07/17 History [Probiotic] predniSONE 5 mg PO DAILY 08/03/16 02/07/17 History Ranitidine HCl [Zantac] 300 mg PO BID 08/14/16 02/07/17 History Pirfenidone [Esbriet] 267 mg PO TID 08/23/16 02/07/17 History Allergies Allergy/AdvReac Type Severity Reaction Status Date / Time latex Allergy Rash/Hives Verified 02/07/17 09:27 levofloxacin [From Levaquin] Allergy Nausea & Verified 02/07/17 09:27 Vomiting Sulfa (Sulfonamide Allergy Rash/Hives Verified 02/07/17 09:27 Antibiotics) adhesive AdvReac Rash/Hives Verified 02/07/17 09:27 Physical Exam Vitals: Vital Signs Temp Pulse Pulse Resp BP BP Pulse Ox 02/07/17 15:53 76 02/07/17 15:41 72 02/07/17 15:00 97.8 F 79 18 144/66 90 L 02/07/17 12:51 97.9 F 75 22 151/73 93 L 02/07/17 11:30 78 20 150/74 93 L 02/07/17 10:36 78 22 158/70 92 L 02/07/17 09:58 78 02/07/17 09:47 74 22 02/07/17 09:30 76 20 147/72 93 L 02/07/17 08:41 98.2 F 77 22 165/77 90 L Intake and Output 02/07/17 02/07/17 02/07/17 06:59 14:59 22:59 Other: # Voids 1 Weight 79.379 kg Patient Weight 02/08/17 06:59 Weight 79.379 kg - Constitutional General appearance: average body habitus, no acute distress - EENT Eyes: EOMI, PERRLA, no photophobia ENT: normal oropharynx Ears: bilateral: normal - Neck Carotids: bilateral: upstroke normal - Respiratory Respiratory: bilateral: rales, rhonchi, wheezing, negative: CTA, dullness, prolonged expiration - Cardiovascular Rhythm: regular Heart sounds: normal: S1, S2 Abnormal Heart Sounds: no systolic murmur, no diastolic murmur - Gastrointestinal General gastrointestinal: normal bowel sounds, soft, no tenderness - Integumentary Integumentary: no flushed, no jaundiced - Neurologic Neurologic: CNII-XII intact - Musculoskeletal Musculoskeletal: gait normal, generalized weakness, no strength equal bilaterally - Psychiatric Psychiatric: A&O x's 3, appropriate affect Results CBC & Chem 7: 02/07/17 08:58 02/07/17 08:58 Labs: Abnormal Lab Results - Last 24 Hours (Table) 02/07/17 02/07/17 02/07/17 Range/Units 08:58 08:58 08:58 Neutrophils # 7.8 H (1.3-7.7) k/uL Lymphocytes # 0.5 L (1.0-4.8) k/uL APTT (22.0-30.0) sec Sodium 133 L (137-145) mmol/L Glucose 104 H (74-99) mg/dL AST 39 H (14-36) U/L Total Creatine Kinase <20 L (30-135) U/L 02/07/17 Range/Units 08:58 Neutrophils # (1.3-7.7) k/uL Lymphocytes # (1.0-4.8) k/uL APTT 21.8 L (22.0-30.0) sec Sodium (137-145) mmol/L Glucose (74-99) mg/dL AST (14-36) U/L Total Creatine Kinase (30-135) U/L Thrombosis Risk Factor Assmnt - DVT/VTE Prophylaxis DVT/VTE Prophylaxis: Pharmacologic Prophylaxis ordered, Mechanical Prophylaxis ordered - Choose All That Apply Any of the Below Risk Factors Present?: Yes Each Factor Represents 1 point: Abnormal pulmonary function (COPD), Obesity ( BMI >25), Serious lung disease incl. pneumonia (< 1month) Other Risk Factors: Yes Each Risk Factor Represents 2 Points: Age 61-74 years Other congenital or acquired thrombophilia - If yes, enter type in comment: No Thrombosis Risk Factor Assessment Total Risk Factor Score: 5 Thrombosis Risk Factor Assessment Level: High Risk Assessment and Plan Plan: 1 acute respiratory failure: Combination of pulmonary fibrosis, infection, COPD exacerbation and possible metastasis. 2 COPD exacerbation: With patient's current symptoms patient will be on Solu- Medrol, DuoNeb, Pulmicort and will consult pulmonary. 3 advance pulmonary fibrosis: Long-standing has been seen pulmonary for long time continue current pulmonary medication at this point. 4 febrile illness likley secondary to severe bronchitis - continue Rocephin and azithromycin 5 CAD: No chest pain or angina patient remain on Tenormin and losartan resume medication. 6 hyperlipidemia: Not on any medication currently. 7 arrhythmia: Has been doing very well on atenolol. 8 severe GERD/GI prophylaxis: Patient will be on Nexium 40 mg daily. 9 DVT prophylaxis: Patient will be on heparin subcutaneous. CODE STATUS: Full code. Expectation from this admission: Patient be the hospital for more than 2 nights.
--- NOTE | 2017-02-07 17:09 | P.CNPUL ---
History of Present Illness Consult date: 02/07/17 Requesting physician: Yuri Mcmullen Reason for consult: dyspnea, pneumonia, pulmonary fibrosis Chief complaint: Shortness of breath History of present illness: This is a 76-year-old female who is quite familiar to my service. Patient is known to have history of severe pulmonary fibrosis, felt to be usual interstitial pneumonitis and she has been placed on esbriet. In addition to her pulmonary fibrosis, patient is also known to have history of severe COPD, and history of a left upper lobe mass were and it initial diagnosis could never be established, but it was felt to be malignant. Medication and CT-guided needle biopsies failed to establish the diagnosis, patient was even referred to [facility] surgical staff, and it was felt that the patient is not a good surgical candidate, it was recommended that we treat the mass as malignant. Patient was given radiation therapy and she developed some component of radiation pneumonitis in the left upper lobe. Patient developed significant pain and worsening shortness of breath however she responded well to a maintenance dose of prednisone. She was also placed on auction 4 chronic hypoxic respiratory failure and kept on multiple bronchodilators. Patient was actually scheduled to have a repeat CT of the chest to follow-up on her interstitial lung disease and on her left upper lobe mass in early February. Patient presented today with mostly increased shortness of breath for the last few days. Dyspnea with any exertion, some productive cough with yellow phlegm, low-grade fever, no chills, no hemoptysis, and no chest pain. Patient felt that her pulmonary condition has been going downhill. Hence the patient came into the ER. CT angiogram of the chest showed no evidence of pulmonary embolism , it did show her usual pulmonary fibrosis, and the areas of nodularity in the left upper lobe unchanged compared to previous CT of the chest. A new left upper lobe nodule noted 9.8 mm in the left upper lobe and there was pleural thickening. Patient was admitted, placed on antibiotics, bronchodilators, steroids, and I was asked to see her on consultation. Upon my evaluation, I reviewed the CT of the chest findings with the patient, and explained to her that there is no evidence of thromboembolic disease. But she does have severe chronic interstitial lung disease along with underlying emphysema and bronchiectasis. Review of Systems Constitutional: Patient reports chronic aches and pains, weakness, fatigue, malaise, and low-grade fever, no weight loss. Eyes: denies blurred vision, no diplopia. Ears: Denies earache, denies tinnitus. Ears, nose, mouth and throat: Denies nasal congestion, epistaxis, sore throat or dry mouth. Cardiovascular: Denies chest pain, no palpitations, no diaphoresis. Respiratory: As noted in HPI Gastrointestinal: Occasional nausea related to her medication, no vomiting, no abdominal pain, no melena, no hematemesis. Genitourinary: No dysuria frequency or urgency no hematuria. Musculoskeletal: Denies gait dysfunction, Denies low back pain, Denies muscle weakness Integumentary: Denies any skin rashes, no ulcerations. Neurological: No headaches, no blurred vision, no dizziness. Psychiatric: No symptoms of active depression. Does have symptoms of anxiety. Endocrine: Denies any heat or cold intolerance, no polyuria, no polyphagia, and no polydipsia. Past Medical History Past Medical History: COPD, GERD/Reflux, Hypertension, Osteoarthritis (OA), Respiratory Disorder Additional Past Medical History / Comment(s): PT DENIES CANCER OF ANY KIND BUT HAS "NODULE LEFT UPPER LOBE KEPT GETTING LARGER SO THEY DID treated with radiation 2016', pulmonary fibrosis, O2 @ 2 liter while sleeping and prn, past irregular heart beat, History of Any Multi-Drug Resistant Organisms: None Reported Past Surgical History: Cholecystectomy, EPS, Heart Catheterization, Hysterectomy Additional Past Surgical History / Comment(s): 2 BRONCHOSCOPIES W/ BX, LEFT LUNG CT GUIDED NEEDLE BX-PT STATES ALL RESULTS BENIGN, NASAL POLYPS REMOVED- BENIGN, ESSENCE CATARACTS/LENS IMPLANTS, EGD/COLONOSCOPY/POLYPECTOMY-BENIGN, HYSTERECTOMY AGE 41 STILL HAS RT OVARY, EP STUDY-UNABLE TO REPRODUCE IRREGULAR HEART BEAT. Past Anesthesia/Blood Transfusion Reactions: No Reported Reaction Smoking Status: Former smoker (Patient quit in May said that she smoked for more than 50 years around one pack a day) Additional Drug Use History / Comment(s): Patient wears 2 L of oxygen, lives with her is for 55 years, has 4 children one son - Past Family History Daughter(s) Family Medical History: Blood Disorder, Deep Vein Thrombosis (DVT) Additional Family Medical History / Comment(s): DAUGHTER HAS Factor V. GRANDAUGHTER HAS FACTOR V WELL Father Additional Family Medical History / Comment(s): VALVE REPLACEMENT. FATHER LIVED TO BE 93 YRS OLD. Son(s) Family Medical History: Hypertension Mother Family Medical History: No Reported History Medications and Allergies Home Medications Medication Instructions Recorded Confirmed Type Atenolol [Tenormin] 25 mg PO BID 09/29/13 02/07/17 History Losartan Potassium [Cozaar] 100 mg PO DAILY 09/25/15 02/07/17 History HYDROcodone/APAP 5-325MG [Sloan 1 tab PO Q6H PRN 08/03/16 02/07/17 History 5-325] L.acidoph,Paracasei, B.lactis 1 tab PO DAILY@1200 08/03/16 02/07/17 History [Probiotic] predniSONE 5 mg PO DAILY 08/03/16 02/07/17 History Ranitidine HCl [Zantac] 300 mg PO BID 08/14/16 02/07/17 History Pirfenidone [Esbriet] 267 mg PO TID 08/23/16 02/07/17 History Allergies Allergy/AdvReac Type Severity Reaction Status Date / Time latex Allergy Rash/Hives Verified 02/07/17 09:27 levofloxacin [From Levaquin] Allergy Nausea & Verified 02/07/17 09:27 Vomiting Sulfa (Sulfonamide Allergy Rash/Hives Verified 02/07/17 09:27 Antibiotics) adhesive AdvReac Rash/Hives Verified 02/07/17 09:27 Physical Exam Vitals: Vital Signs Temp Pulse Pulse Resp BP BP Pulse Ox 02/07/17 15:53 76 02/07/17 15:41 72 02/07/17 15:00 97.8 F 79 18 144/66 90 L 02/07/17 12:51 97.9 F 75 22 151/73 93 L 02/07/17 11:30 78 20 150/74 93 L 02/07/17 10:36 78 22 158/70 92 L 02/07/17 09:58 78 02/07/17 09:47 74 22 02/07/17 09:30 76 20 147/72 93 L 02/07/17 08:41 98.2 F 77 22 165/77 90 L Intake and Output 02/07/17 02/07/17 02/07/17 06:59 14:59 22:59 Other: # Voids 1 Weight 79.379 kg Patient Weight 02/08/17 06:59 Weight 79.379 kg Physical Exam: Revealed a 76-year-old female noted to be dyspneic with any activity even while talking. HEENT:[Neck is supple.] [No neck masses.] [No thyromegaly.] [No JVD.] Chest: [Velcro rales and crackles noted bilaterally throughout,.] Cardiac Exam: [Normal S1 and S2, no S3 gallop, no murmur.] Abdomen: [Soft, nontender, no megaly, no rebound, no guarding, normal bowel sounds.] Extremities: [No clubbing, no edema, no cyanosis.] Neurological Exam: [No focal neurologic deficit.] Psychiatric: Intact mental status examination, normal affect, normal mood. Skin: No evidence of rashes or ulcerations Musculoskeletal: No weakness, strength is equal bilaterally. Results - Laboratory Findings CBC and BMP: 02/07/17 08:58 02/07/17 08:58 PT/INR, D-dimer PT 10.8 sec (9.0-12.0) 02/07/17 08:58 INR 1.1 (<1.2) 02/07/17 08:58 Abnormal lab findings: Abnormal Labs 02/07/17 02/07/17 02/07/17 08:58 08:58 08:58 Neutrophils # 7.8 H Lymphocytes # 0.5 L APTT Sodium 133 L Glucose 104 H AST 39 H Total Creatine Kinase <20 L 02/07/17 08:58 Neutrophils # Lymphocytes # APTT 21.8 L Sodium Glucose AST Total Creatine Kinase - Diagnostic Findings CT scan - chest: image reviewed (CT of the chest was reviewed and discussed with the patient as noted in HPI.) Assessment and Plan Plan: Impression: 1 acute on chronic hypoxic respiratory failure secondary to severe and worsening pulmonary fibrosis/UIP, chronic obstructive pulmonary disease, and bronchiectasis. As well as history of radiation pneumonitis involving the left upper lobe. 2 severe underlying COPD 3 severe interstitial lung disease, UIP 4 bronchiectasis 5 radiation pneumonitis and strongly suspect underlying malignancy involving the left upper lobe 6 cannot rule out underlying pneumonitis and bacterial infection hence the patient will need to be empirically covered with antibiotics. 7 multiple comorbidities including underlying coronary artery disease, hyperlipidemia, history of GERD, history of benign essential hypertension, history of osteoarthritis. Recommendation: Continue present treatment plan including antibiotics, bronchodilators, high dose of Solu-Medrol, resume pirfenedone and will continue to follow. Discussed with the patient the findings on the CT of the chest, overall long-term prognosis is definitely poor and guarded. We'll continue to follow. Time with Patient: Greater than 30
[2017-02-07 17:46] LABS: Glucose,Whole Blood 230 mg/dL (75-99)
[2017-02-07] MEDS: INSULIN LISPRO (humaLOG) 300 UNIT/3 ML VIAL SQ SCH ×2 (18:05→21:56)
[2017-02-07] MEDS: methylPREDNISolone SOD SUCCI 125 MG/2 ML VIAL IV SCH (18:06)
[2017-02-07 20:07] LABS: Glucose,Whole Blood 202 mg/dL (75-99)
[2017-02-07] MEDS: FAMOTIDINE 20 MG TAB PO SCH (21:55)
[2017-02-07] MEDS: ATENOLOL 25 MG TAB PO SCH (21:55)
[2017-02-07] MEDS: HEPARIN SODIUM,PORCINE 5,000 UNIT/ML 1 ML VIAL SQ SCH (21:55)
[2017-02-08] MEDS: methylPREDNISolone SOD SUCCI 125 MG/2 ML VIAL IV SCH ×4 (00:08→17:24)
[2017-02-08] MEDS: HYDROcodone/APAP 5-325MG 1 EACH TAB PO PRN (05:36)
[2017-02-08 07:15] LABS: Glucose,Whole Blood 155 mg/dL (75-99)
[2017-02-08] MEDS: IPRATROPIUM-ALBUTEROL 3 ML NEB INHALATION SCH ×4 (07:47→20:13)
[2017-02-08] MEDS: INSULIN LISPRO (humaLOG) 300 UNIT/3 ML VIAL SQ SCH ×3 (08:31→17:24)
[2017-02-08] MEDS: HEPARIN SODIUM,PORCINE 5,000 UNIT/ML 1 ML VIAL SQ SCH (08:37)
[2017-02-08] MEDS: FAMOTIDINE 20 MG TAB PO SCH (08:37)
[2017-02-08] MEDS: ATENOLOL 25 MG TAB PO SCH ×2 (08:37→21:44)
[2017-02-08] MEDS: LOSARTAN 50 MG TAB PO SCH (08:37)
[2017-02-08] MEDS ORDERED: predniSONE 5 MG TAB PO SCH (09:00)
[2017-02-08] MEDS ORDERED: PIRFENIDONE 267 MG PO SCH (10:30)
[2017-02-08 11:45] LABS: Glucose,Whole Blood 179 mg/dL (75-99)
--- NOTE | 2017-02-08 12:15 | P.PN ---
Subjective Principal diagnosis: dyspnea, pneumonia, pulmonary fibrosis This is a 76-year-old female who is quite familiar to my service. Patient is known to have history of severe pulmonary fibrosis, felt to be usual interstitial pneumonitis and she has been placed on esbriet. In addition to her pulmonary fibrosis, patient is also known to have history of severe COPD, and history of a left upper lobe mass were and it initial diagnosis could never be established, but it was felt to be malignant. Medication and CT-guided needle biopsies failed to establish the diagnosis, patient was even referred to [facility] surgical staff, and it was felt that the patient is not a good surgical candidate, it was recommended that we treat the mass as malignant. Patient was given radiation therapy and she developed some component of radiation pneumonitis in the left upper lobe. Patient developed significant pain and worsening shortness of breath however she responded well to a maintenance dose of prednisone. She was also placed on auction 4 chronic hypoxic respiratory failure and kept on multiple bronchodilators. Patient was actually scheduled to have a repeat CT of the chest to follow-up on her interstitial lung disease and on her left upper lobe mass in early February. Patient presented today with mostly increased shortness of breath for the last few days. Dyspnea with any exertion, some productive cough with yellow phlegm, low-grade fever, no chills, no hemoptysis, and no chest pain. Patient felt that her pulmonary condition has been going downhill. Hence the patient came into the ER. CT angiogram of the chest showed no evidence of pulmonary embolism , it did show her usual pulmonary fibrosis, and the areas of nodularity in the left upper lobe unchanged compared to previous CT of the chest. A new left upper lobe nodule noted 9.8 mm in the left upper lobe and there was pleural thickening. Patient was admitted, placed on antibiotics, bronchodilators, steroids, and I was asked to see her on consultation. Upon my evaluation, I reviewed the CT of the chest findings with the patient, and explained to her that there is no evidence of thromboembolic disease. But she does have severe chronic interstitial lung disease along with underlying emphysema and bronchiectasis. On 02/08/2017 the patient is seen in follow-up. She continues to experience significant respiratory distress even going to the bedside commode. She states it takes her a while to recover after those episodes.continues on 3 L oxygen per nasal cannula with oxygen saturation around 92-93%. On IV antibiotics in the form of Rocephin and Zithromax, systemic steroids Solu-Medrol 60 mg every 6 hours and DuoNeb nebulized treatments. She does state that occasionally she has heart palpitations with the nebulized treatments. No significant sputum production. Lung sounds are coarse and respiratory crackles over posterior basis. Good air entry noted. No wheezing. No rhonchi. Continues on Esbriet for history of UIP. no febrile episodes through the night.Blood culture shows no growth at 24 hours. Remains marginal in terms of her abilityto tolerate even limited activity. Objective - Vital Signs Vital signs: Vital Signs Temp 97.5 F L 02/08/17 07:50 Pulse 72 02/08/17 11:35 Resp 16 02/08/17 07:50 BP 170/81 02/08/17 07:50 Pulse Ox 92 L 02/08/17 07:50 Intake & Output 02/07/17 02/08/17 02/08/17 18:59 06:59 18:59 Intake Total 700 Balance 700 Weight 79.379 kg 79.379 kg Intake: Intake, IV Titration 200 Amount Azithromycin 500 mg In 100 Sodium Chloride 0.9% 250 ml @ 125 mls/hr IVPB Q24H EMILY Rx#:[id number] cefTRIAXone 1,000 mg In 100 Sodium Chloride 0.9% 50 ml @ 100 mls/hr IVPB Q24H EMILY Rx#:[id number] Oral 500 Other: Voiding Method Bedside Commode Bedside Commode Bedside Commode # Voids 1 1 # Bowel Movements 1 - Exam GENERAL EXAM: Alert, active, comfortable in no apparent distress. HEAD: Normocephalic. EYES: Normal reaction of pupils, equal size. NOSE: Clear with pink turbinates. THROAT: No erythema or exudates. NECK: No masses, no JVD. CHEST: No chest wall deformity. LUNGS: Equal air entry with no wheeze, rhonchi or dullness. Coarse crackles at posterior bases CVS: S1 and S2 normal with no audible mumurs, regular rhythm. ABDOMEN: No hepatosplenomegaly, normal bowel sounds, no guarding or rigidity. SPINE: No scoliosis or deformity SKIN: No rashes CENTRAL NERVOUS SYSTEM: No focal deficits, tone is normal in all 4 extremities. - Labs CBC & Chem 7: 02/07/17 08:58 02/07/17 08:58 Labs: Abnormal Lab Results - Last 24 Hours (Table) 02/07/17 02/07/17 02/08/17 Range/Units 17:43 19:54 07:13 POC Glucose (mg/dL) 230 H 202 H 155 H (75-99) mg/dL 02/08/17 Range/Units 11:44 POC Glucose (mg/dL) 179 H (75-99) mg/dL Microbiology - Last 24 Hours (Table) 02/07/17 08:58 Blood Culture - Preliminary Blood No Growth after 24 hours Assessment and Plan Plan: Assessment and Plan Impression: 1 acute on chronic hypoxic respiratory failure secondary to severe and worsening pulmonary fibrosis/UIP, chronic obstructive pulmonary disease, and bronchiectasis. As well as history of radiation pneumonitis involving the left upper lobe. 2 severe underlying COPD 3 severe interstitial lung disease, UIP 4 bronchiectasis 5 radiation pneumonitis and strongly suspect underlying malignancy involving the left upper lobe 6 cannot rule out underlying pneumonitis and bacterial infection hence the patient will need to be empirically covered with antibiotics. 7 multiple comorbidities including underlying coronary artery disease, hyperlipidemia, history of GERD, history of benign essential hypertension, history of osteoarthritis. Plan: Continue current treatment including Rocephin and Zithromax antibiotics, DuoNeb nebulized treatments, high dose of systemic steroids and pirfenedone. Overall long-term prognosisremains poor and guarded. We will continue to follow. I performed a history & physical examination of the patient and discussed their management with my nurse practitioner, Estefanía Colón. I reviewed the nurse practitioner's note and agree with the documented findings and plan of care.
[2017-02-08] MEDS: PIRFENIDONE 267 MG PO SCH ×2 (12:43→17:23)
[2017-02-08] MEDS: LACTOBACILLUS ACIDOPH & BULGAR 1 EACH PACKET PO SCH (12:44)
[2017-02-08] MEDS: AZITHROMYCIN 500 MG TAB PO SCH (13:48)
--- NOTE | 2017-02-08 16:46 | P.PN ---
Subjective 75-year-old female, patient of Dr. Rivero with a history of a well- established idiopathic pulmonary fibrosis on Esbriet,started on a new anti- fibrotic drug by Dr. 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 Patient presented to the emergency department at [facility] complaining of back pain between her shoulder blade area along with significant shortness of breath cough and wheezes and worsening symptoms compared to her baseline. Patient also developed to have fever, chills and mildly productive cough. She was out of breath and had an episode of gasping for past couple of days patient is at 2 L of oxygen at home is currently requiring 2.5 L. She does have some discomfort but it's related to her breathing but denies any chest pain. Patient denies any sick contact or recent travel. She is nauseous but denies any episode of vomiting, decreased appetite and generalized weakness. She has not noticed that her ankles are more swollen than before. Patient denies any exposure to TB, birds or bats CT was ordered in the ED to rule out pulmonary embolism which was negative. Patient does have a pleural mass but no significant vascular congestion or consolidation seen. 02/08: Patient states she is very tired today and not sleep well last night. She has ambulated to the bathroom abases herself due to shortness of breath with only a few steps. She is normally on home O2 at 2 L nasal cannula. By Dr. Garces. Objective - Vital Signs Vital signs: Vital Signs Temp 97.5 F L 02/08/17 07:50 Pulse 80 02/08/17 08:01 Resp 16 02/08/17 07:50 BP 170/81 02/08/17 07:50 Pulse Ox 92 L 02/08/17 07:50 Intake & Output 02/07/17 02/08/17 02/08/17 18:59 06:59 18:59 Intake Total 700 Balance 700 Weight 79.379 kg 79.379 kg Intake: Intake, IV Titration 200 Amount Azithromycin 500 mg In 100 Sodium Chloride 0.9% 250 ml @ 125 mls/hr IVPB Q24H EMILY Rx#:[id number] cefTRIAXone 1,000 mg In 100 Sodium Chloride 0.9% 50 ml @ 100 mls/hr IVPB Q24H EMILY Rx#:[id number] Oral 500 Other: Voiding Method Bedside Commode Bedside Commode Bedside Commode # Voids 1 1 # Bowel Movements 1 - Exam General appearance: average body habitus, no acute distress - EENT Eyes: EOMI, PERRLA, no photophobia ENT: normal oropharynx Ears: bilateral: normal - Neck Carotids: bilateral: upstroke normal - Respiratory Respiratory: bilateral: rales, rhonchi, wheezing, negative: CTA, dullness, prolonged expiration - Cardiovascular Rhythm: regular Heart sounds: normal: S1, S2 Abnormal Heart Sounds: no systolic murmur, no diastolic murmur - Gastrointestinal General gastrointestinal: normal bowel sounds, soft, no tenderness - Integumentary Integumentary: no flushed, no jaundiced - Neurologic Neurologic: CNII-XII intact - Musculoskeletal Musculoskeletal: gait normal, generalized weakness, no strength equal bilaterally - Psychiatric Psychiatric: A&O x's 3, appropriate affect - Labs CBC & Chem 7: 02/07/17 08:58 02/07/17 08:58 Labs: Abnormal Lab Results - Last 24 Hours (Table) 02/07/17 02/07/17 02/07/17 Range/Units 08:58 17:43 19:54 POC Glucose (mg/dL) 230 H 202 H (75-99) mg/dL Total Creatine Kinase <20 L (30-135) U/L 02/08/17 Range/Units 07:13 POC Glucose (mg/dL) 155 H (75-99) mg/dL Total Creatine Kinase (30-135) U/L Assessment and Plan Plan: 1 acute on chronic hypoxic respiratory failure: Combination of pulmonary fibrosis, infection, COPD exacerbation and possible metastasis. 2 COPD exacerbation: With patient's current symptoms patient will be on Solu- Medrol, DuoNeb, Pulmicort and will consult pulmonary. 3 advance pulmonary fibrosis: Long-standing has been seen pulmonary for long time continue current pulmonary medication at this point. 4 febrile illness likley secondary to severe bronchitis - continue Rocephin and azithromycin 5 CAD: No chest pain or angina patient remain on Tenormin and losartan resume medication. 6 hyperlipidemia: Not on any medication currently. 7 arrhythmia: Has been doing very well on atenolol. 8 severe GERD/GI prophylaxis: Patient will be on Nexium 40 mg daily. 9 DVT prophylaxis: Patient will be on heparin subcutaneous. CODE STATUS: Full code. Discharge plan: To be determined Impression and plan of care have been directed as dictated by the signing physician. Ratna Arredondo nurse practitioner acting as scribe for signing physician.
[2017-02-08 17:05] LABS: Glucose,Whole Blood 142 mg/dL (75-99)
[2017-02-08 20:33] LABS: Glucose,Whole Blood 141 mg/dL (75-99)
[2017-02-08] MEDS ORDERED: HEPARIN SODIUM,PORCINE 5,000 UNIT/ML 1 ML VIAL IV ONE (21:58)
[2017-02-08] MEDS ORDERED: HEPARIN SODIUM,PORCINE 5,000 UNIT/ML 1 ML VIAL IV PRN (21:58)
[2017-02-08] MEDS ORDERED: NITROGLYCERIN SL TABS 0.4 MG TAB SUBLINGUAL PRN (22:00)
[2017-02-08] MEDS ORDERED: HEPARIN SODIUM,PORCINE/D5W PMX 25,000 UNIT in DEXTROSE/WATER 1 500ML.BAG IV SCH (22:00)
[2017-02-08] MEDS ORDERED: DILTIAZEM 125 MG in SODIUM CHLORIDE 0.9% 100 ML IV SCH (22:00)
[2017-02-08 22:31] LABS: Basophils % (A) 0 %; CH 33.9; CHCM 34.1; Eosinophils % (A) 0 %; HCT 40.6 % (34.0-46.0); HDW 2.86; HGB 13.4 gm/dL (11.4-16.0); Luc # (Auto) 0.03; Luc % (Auto) 0; Lymphocytes # (A) 0.3 k/uL (1.0-4.8); Lymphocytes % (A) 2 %; MCH 32.9 pg (25.0-35.0); MCV 99.7 fL (80.0-100.0); Mean Platelet Volume 7.1; Monocytes # (A) 0.4 k/uL (0-1.0); Monocytes % (A) 3 %; Neutrophils # (A) 15.2 k/uL (1.3-7.7); Neutrophils % (A) 95 %; RBC 4.07 m/uL (3.80-5.40); RDW 13.3 % (11.5-15.5); WBC 15.9 k/uL (3.8-10.6); WBC (Perox) 16.71
[2017-02-08 22:45] LABS: INR 1.1 (<1.2); Prothrombin Time 10.9 sec (9.0-12.0)
[2017-02-08 22:46] LABS: ALT 83 U/L (9-52); AST 72 U/L (14-36); Alkaline Phosphatase 98 U/L (38-126); Anion Gap 13 mmol/L; Blood Urea Nitrogen 20 mg/dL (7-17); Calcium 9.9 mg/dL (8.4-10.2); Carbon Dioxide 23 mmol/L (22-30); Chloride 98 mmol/L (98-107); Glucose 179 mg/dL (74-99); Non-African American GFR(MDRD) >60 (>60 ml/min/1.73 sqM); Potassium 4.4 mmol/L (3.5-5.1); Sodium 134 mmol/L (137-145); Total Bilirubin 0.4 mg/dL (0.2-1.3); Total Protein 6.4 g/dL (6.3-8.2)
[2017-02-08 22:52] LABS: Creatine Kinase 60 U/L (30-135); Partial Thromboplastin Time 20.4 sec (22.0-30.0)
[2017-02-08 23:05] LABS: Creatine Kinase MB 2.2 ng/mL (0.0-2.4); Troponin I <0.012 ng/mL (0.000-0.034)
[2017-02-09] MEDS: methylPREDNISolone SOD SUCCI 125 MG/2 ML VIAL IV SCH ×4 (00:17→17:37)
[2017-02-09] MEDS: FAMOTIDINE 20 MG TAB PO SCH ×3 (00:18→20:36)
[2017-02-09] MEDS: INSULIN LISPRO (humaLOG) 300 UNIT/3 ML VIAL SQ SCH ×5 (00:18→20:36)
[2017-02-09 00:26] LABS: Glucose,Whole Blood 156 mg/dL (75-99)
[2017-02-09] MEDS: LEVALBUTEROL NEB 1.25 MG/3 ML AMP INHALATION SCH ×7 (00:30→23:35)
[2017-02-09 04:42] LABS: Basophils % (A) 0 %; CH 33.6; CHCM 33.7; Eosinophils % (A) 0 %; HCT 37.5 % (34.0-46.0); HDW 2.77; HGB 12.3 gm/dL (11.4-16.0); Luc # (Auto) 0.05; Luc % (Auto) 0; Lymphocytes # (A) 0.3 k/uL (1.0-4.8); Lymphocytes % (A) 2 %; MCH 32.8 pg (25.0-35.0); MCHC 32.7 g/dL (31.0-37.0); MCV 100.1 fL (80.0-100.0); Mean Platelet Volume 7.3; Monocytes # (A) 0.5 k/uL (0-1.0); Monocytes % (A) 3 %; Neutrophils # (A) 13.9 k/uL (1.3-7.7); Neutrophils % (A) 94 %; RBC 3.75 m/uL (3.80-5.40); RDW 12.9 % (11.5-15.5); WBC 14.7 k/uL (3.8-10.6); WBC (Perox) 14.74
[2017-02-09 04:49] LABS: ALT 86 U/L (9-52); AST 64 U/L (14-36); Alkaline Phosphatase 76 U/L (38-126); Anion Gap 10 mmol/L; Blood Urea Nitrogen 20 mg/dL (7-17); Calcium 9.1 mg/dL (8.4-10.2); Carbon Dioxide 24 mmol/L (22-30); Chloride 102 mmol/L (98-107); Glucose 129 mg/dL (74-99); Non-African American GFR(MDRD) >60 (>60 ml/min/1.73 sqM); Potassium 4.9 mmol/L (3.5-5.1); Sodium 136 mmol/L (137-145); Total Bilirubin 0.2 mg/dL (0.2-1.3); Total Protein 5.9 g/dL (6.3-8.2)
[2017-02-09 06:04] LABS: Glucose,Whole Blood 139 mg/dL (75-99)
[2017-02-09] MEDS: PIRFENIDONE 267 MG PO SCH ×3 (07:19→17:36)
[2017-02-09] MEDS: HYDROcodone/APAP 5-325MG 1 EACH TAB PO PRN (08:04)
[2017-02-09] MEDS: ATENOLOL 25 MG TAB PO SCH (08:04)
[2017-02-09] MEDS: LOSARTAN 50 MG TAB PO SCH (08:05)
--- NOTE | 2017-02-09 09:59 | P.CRDCN ---
History of Present Illness Consult date: 02/09/17 Requesting physician: Yuri Mcmullen Reason for Consult (text): AF w/RVR Chief complaint: rapid heart beat, chest discomfort History of present illness: This is a pleasant 76-year-old female patient with history of idiopathic pulmonary fibrosis, COPD, left upper lung mass, status post radiation , hypertension and hyperlipidemia, palpitations about 20 years ago with subsequent EP study that came back inconclusive according to the patient. She follows with Dr. ELDOIA Bhatti in the office. She initially presented to the emergency department with complaints of back pain and extreme shortness of breath and wheezing that was significantly worse compared to her baseline. She also developed fever, chills and a productive cough. CTA of the chest was done and was negative for PE and showed stable left upper lung nodule with a new 9.8 mm left upper lobe nodule and pleural thickening. The patient follows with Dr. Randhawa. We were asked to see the patient in consultation due to an episode of atrial fibrillation with rapid ventricular response while on the MedSurg unit. Patient says last night she was resting in bed developed a feeling of a rapid heartbeat along with some chest discomfort and shortness of breath. EKG showed patient was in atrial fibrillation with rapid ventricular response. She was transferred to selective care unit and started on Cardizem drip and heparin drip. She is on atenolol 25 mg by mouth twice a day, this is a home medication. TSH was checked on this patient and came back to be low at 0.269. Upon examination this morning, patient is maintaining sinus rhythm. Further complaints of chest discomfort or palpitations. Continues to complain of shortness of breath, on 8 L nasal cannula which she is usually on 2 L at home. Past Medical History Past Medical History: COPD, GERD/Reflux, Hypertension, Osteoarthritis (OA), Respiratory Disorder Additional Past Medical History / Comment(s): PT DENIES CANCER OF ANY KIND BUT HAS "NODULE LEFT UPPER LOBE KEPT GETTING LARGER SO THEY DID treated with radiation 2016', pulmonary fibrosis, O2 @ 2 liter while sleeping and prn, past irregular heart beat, History of Any Multi-Drug Resistant Organisms: None Reported Past Surgical History: Cholecystectomy, EPS, Heart Catheterization, Hysterectomy Additional Past Surgical History / Comment(s): 2 BRONCHOSCOPIES W/ BX, LEFT LUNG CT GUIDED NEEDLE BX-PT STATES ALL RESULTS BENIGN, NASAL POLYPS REMOVED- BENIGN, ESSENCE CATARACTS/LENS IMPLANTS, EGD/COLONOSCOPY/POLYPECTOMY-BENIGN, HYSTERECTOMY AGE 41 STILL HAS RT OVARY, EP STUDY-UNABLE TO REPRODUCE IRREGULAR HEART BEAT. Past Anesthesia/Blood Transfusion Reactions: No Reported Reaction Smoking Status: Former smoker (Patient quit in May said that she smoked for more than 50 years around one pack a day) Additional Drug Use History / Comment(s): Patient wears 2 L of oxygen, lives with her is for 55 years, has 4 children one son - Past Family History Daughter(s) Family Medical History: Blood Disorder, Deep Vein Thrombosis (DVT) Additional Family Medical History / Comment(s): DAUGHTER HAS Factor V. GRANDAUGHTER HAS FACTOR V WELL Father Additional Family Medical History / Comment(s): VALVE REPLACEMENT. FATHER LIVED TO BE 93 YRS OLD. Son(s) Family Medical History: Hypertension Mother Family Medical History: No Reported History Medications and Allergies Home Medications Medication Instructions Recorded Confirmed Type Atenolol [Tenormin] 25 mg PO BID 09/29/13 02/07/17 History Losartan Potassium [Cozaar] 100 mg PO DAILY 09/25/15 02/07/17 History HYDROcodone/APAP 5-325MG [[place] 1 tab PO Q6H PRN 08/03/16 02/07/17 History 5-325] L.acidoph,Paracasei, B.lactis 1 tab PO DAILY@1200 08/03/16 02/07/17 History [Probiotic] predniSONE 5 mg PO DAILY 08/03/16 02/07/17 History Ranitidine HCl [Zantac] 300 mg PO BID 08/14/16 02/07/17 History Pirfenidone [Esbriet] 267 mg PO TID 08/23/16 02/07/17 History Allergies Allergy/AdvReac Type Severity Reaction Status Date / Time latex Allergy Rash/Hives Verified 02/07/17 09:27 levofloxacin [From Levaquin] Allergy Nausea & Verified 02/07/17 09:27 Vomiting Sulfa (Sulfonamide Allergy Rash/Hives Verified 02/07/17 09:27 Antibiotics) adhesive AdvReac Rash/Hives Verified 02/07/17 09:27 Physical Exam Vitals: Vital Signs Temp Pulse Pulse Resp BP Pulse Ox 02/09/17 07:59 92 L 02/09/17 03:42 97.7 F 72 18 144/70 98 02/09/17 00:31 93 L 02/09/17 00:00 97.6 F 122 H 20 132/85 90 L 02/08/17 22:30 97.8 F 146 H 18 159/87 93 L 02/08/17 21:07 98.4 F 101 H 20 153/71 92 L 02/08/17 20:24 96 02/08/17 20:13 82 90 L 02/08/17 16:33 84 02/08/17 16:22 84 02/08/17 15:00 97.9 F 91 16 135/77 93 L 02/08/17 11:35 72 02/08/17 11:22 76 Intake and Output 02/08/17 02/09/17 02/09/17 22:59 06:59 14:59 Intake Total 142.24 Balance 142.24 Intake: Intake, IV Titration 142.24 Amount Heparin Sodium,Porcine/ 142.24 D5w Pmx 25,000 unit In Dextrose/Water 1 500ml. bag @ 12 UNITS/KG/HR 19. 05 mls/hr IV .Q24H [facility] Rx #:[id number] Other: Voiding Method Toilet Toilet # Voids 2 # Bowel Movements 1 Weight 78 kg PHYSICAL EXAMINATION: HEENT: Head is atraumatic, normocephalic. Pupils equal, round. Neck is supple. There is no elevated jugular venous pressure. HEART EXAMINATION: Heart sounds regular, S1 and S2 normal. No murmur or gallop heard. CHEST EXAMINATION: Lungs reveal coarse crackles bilaterally. No chest wall tenderness is noted on palpation or with deep breathing. ABDOMEN: Soft, nontender. Bowel sounds are heard. No organomegaly noted. EXTREMITIES: 2+ peripheral pulses with no evidence of peripheral edema and no calf tenderness noted. NEUROLOGIC patient is awake, alert and oriented x3. . Results 02/09/17 04:06 02/09/17 04:06 Cardiac Enzymes 02/08/17 02/08/17 02/09/17 Range/Units 22:17 22:17 04:06 AST 72 H 64 H (14-36) U/L CK-MB (CK-2) 2.2 (0.0-2.4) ng/mL Troponin I <0.012 (0.000-0.034) ng/mL Coagulation 02/08/17 02/09/17 Range/Units 22:17 04:06 PT 10.9 (9.0-12.0) sec APTT 20.4 L 41.5 H (22.0-30.0) sec CBC 02/08/17 02/09/17 Range/Units 22:17 04:06 WBC 15.9 H 14.7 H (3.8-10.6) k/uL RBC 4.07 3.75 L (3.80-5.40) m/uL Hgb 13.4 12.3 (11.4-16.0) gm/dL Hct 40.6 37.5 (34.0-46.0) % Plt Count 364 323 (150-450) k/uL Comprehensive Metabolic Panel 02/08/17 02/09/17 Range/Units 22:17 04:06 Sodium 134 L 136 L (137-145) mmol/L Potassium 4.4 4.9 (3.5-5.1) mmol/L Chloride 98 102 (98-107) mmol/L Carbon Dioxide 23 24 (22-30) mmol/L BUN 20 H 20 H (7-17) mg/dL Creatinine 0.90 0.80 (0.52-1.04) mg/dL Glucose 179 H 129 H (74-99) mg/dL Calcium 9.9 9.1 (8.4-10.2) mg/dL AST 72 H 64 H (14-36) U/L ALT 83 H 86 H (9-52) U/L Alkaline Phosphatase 98 76 (38-126) U/L Total Protein 6.4 5.9 L (6.3-8.2) g/dL Albumin 3.6 3.3 L (3.5-5.0) g/dL Current Medications Generic Name Dose Route Start Last Admin Trade Name Freq PRN Reason Stop Dose Admin Hydrocodone Bitart/Acetaminophen 1 each 02/07/17 13:15 02/09/17 08:04 [place] 5-325 PO 1 each Q6H PRN Administration Moderate Pain Atenolol 25 mg 02/07/17 21:00 02/09/17 08:04 Tenormin PO 25 mg BID [facility] Administration Azithromycin 500 mg 02/08/17 16:00 02/08/17 13:48 Zithromax PO 500 mg DAILY@1600 [facility] Administration Famotidine 40 mg 02/07/17 21:00 02/09/17 08:04 Pepcid PO 40 mg BID EMILY Administration Heparin Sodium (Porcine) 0 unit 02/08/17 21:58 02/09/17 06:25 Heparin IV 3,900 unit PER PROTOCOL PRN Administration Low PTT Protocol Ceftriaxone Sodium 1,000 mg/ 50 mls @ 100 mls/hr 02/07/17 14:00 02/08/17 13: 48 Sodium Chloride IVPB 100 mls/hr Q24H [facility] Administration Diltiazem HCl 125 mg/ Sodium 125 mls @ 5 mls/hr 02/08/17 22:00 02/08/17 22:24 Chloride IV 5 mg/hr .Q24H [facility] 5 mls/hr 5 MG/HR Administration Heparin Sodium/Dextrose 25,000 500 mls @ 19.05 mls/hr 02/08/17 22:00 06:26 unit/ IV Solution IV 15 units/kg/hr .Q24H [facility] 23.81 mls/hr Protocol Titration 12 UNITS/KG/HR Insulin Human Lispro 0 unit 02/07/17 17:30 02/09/17 06:29 Humalog SQ 1 unit ACHS [facility] Administration Protocol Lactobacillus Acidoph/Bulgaricus 1 each 02/08/17 12:00 02/08/17 12:44 Lactinex PO 1 each DAILY@1200 [facility] Administration Levalbuterol HCl 1.25 mg 02/09/17 00:00 02/09/17 07:59 Xopenex Nebulized INHALATION Not Given RT-Q4H [facility] Losartan Potassium 100 mg 02/08/17 09:00 02/09/17 08:05 Cozaar PO 100 mg DAILY [facility] Administration Methylprednisolone Sodium Succinate 60 mg 02/07/17 18:00 02/09/17 06:29 Solu-Medrol IV 60 mg Q6HR [facility] Administration Miscellaneous Information 1 each 02/07/17 11:46 Rx Info: Iv Contrast Was Given MISCELLANE 02/09/17 11:46 DAILY PRN Per Protocol Nitroglycerin 0.4 mg 02/08/17 22:00 Nitrostat SUBLINGUAL Q5M PRN Chest Pain Pirfenidone [Esbriet 1 each 02/08/17 12:30 02/09/17 07:19 ] 267 Mg Tab PO 1 each TID-W/MEALS [facility] Administration Sodium Chloride 10 ml 02/07/17 21:00 02/09/17 08:05 Saline Flush IV Not Given BID [facility] Intake and Output 02/08/17 02/09/17 02/09/17 22:59 06:59 14:59 Intake Total 142.24 Balance 142.24 Intake: Intake, IV Titration 142.24 Amount Heparin Sodium,Porcine/ 142.24 D5w Pmx 25,000 unit In Dextrose/Water 1 500ml. bag @ 12 UNITS/KG/HR 19. 05 mls/hr IV .Q24H [facility] Rx #:[id number] Other: Voiding Method Toilet Toilet # Voids 2 # Bowel Movements 1 Weight 78 kg 02/09/17 04:06 02/09/17 04:06 EKG Interpretations (text) Atrial fibrillation with rapid ventricular response Assessment and Plan Plan: Assessment and plan #1 paroxysmal atrial fibrillation with RVR, new onset #2 idiopathic pulmonary fibrosis #3 COPD #4 lung mass #5 hypertension From cardiology's perspective, we will obtain a 2-D echo with Doppler. TSH came in to be low, we will check a free T3 and free T4. Will check coverage for Eliquis. Increase dose of atenolol and discontinue IV cardizem drip. [employer] note has been reviewed, I agree with a documented findings and plan of care. Patient was seen and examined.
--- NOTE | 2017-02-09 11:20 | ECHOF ---
Referral Reason:LVF MEASUREMENTS -------- HEIGHT: 162.6 cm WEIGHT: 79.4 kg BP: 151/73 RVIDd: 2.0 cm (< 3.3) IVSd: 1.2 cm (0.6 - 1.1) LVIDd: 3.1 cm (3.9 - 5.3) LVPWd: 1.2 cm (0.6 - 1.1) IVSs: 2.0 cm LVIDs: 1.8 cm LVPWs: 1.6 cm LAESV Index (A-L): 24.90 ml/m Ao Diam: 3.3 cm (2.0 - 3.7) AV Cusp: 2.3 cm (1.5 - 2.6) LA Diam: 3.2 cm (2.7 - 3.8) MV EXCURSION: 20.130 mm (> 18.000) MV EF SLOPE: 90 mm/s (70 - 150) EPSS: 0.7 cm MV E Jaciel: 0.41 m/s MV DecT: 173 ms MV A Jaciel: 0.59 m/s MV E/A Ratio: 0.70 RAP: 5.00 mmHg RVSP: 38.58 mmHg FINDINGS -------- Sinus rhythm. This was a technically good study. The left ventricular size is normal. There is borderline concentric left ventricular hypertrophy. Overall left ventricular systolic function is normal with, an EF between 55 - 60 %. The right ventricle is normal in size and function. Normal LA size by volume 22+/-6 ml/m2. RA appears enlarged. The aortic valve is trileaflet, and appears structurally normal. No aortic stenosis or regurgitation. The mitral valve leaflets are mildly thickened. There is trace mitral regurgitation. Moderate tricuspid regurgitation present. There is borderline pulmonary artery hypertension. The right ventricular systolic pressure, as measured by Doppler, is 38.58mmHg. Pulmonic valve appears structurally normal. The pericardium is normal. CONCLUSIONS -------- 1. Sinus rhythm. 2. The mitral valve leaflets are mildly thickened. 3. There is trace mitral regurgitation. 4. Moderate tricuspid regurgitation present. 5. There is borderline pulmonary artery hypertension. 6. The right ventricular systolic pressure, as measured by Doppler, is 38.58mmHg. 7. Pulmonic valve appears structurally normal. 8. The pericardium is normal. 9. This was a technically good study. 10. The left ventricular size is normal. 11. There is borderline concentric left ventricular hypertrophy. 12. Overall left ventricular systolic function is normal with, an EF between 55 - 60 %. 13. The right ventricle is normal in size and function. 14. Normal LA size by volume 22+/-6 ml/m2. 15. RA appears enlarged. 16. The aortic valve is trileaflet, and appears structurally normal. No aortic stenosis or regurgitation. EMERGENCY MANAGEMENT SPECIALIST: Rocío Calhoun RDCS
[2017-02-09 11:34] LABS: Glucose,Whole Blood 162 mg/dL (75-99)
[2017-02-09] MEDS ORDERED: FUROSEMIDE 10 MG/ML 2 ML VIAL IV ONE (12:00)
[2017-02-09] MEDS: LACTOBACILLUS ACIDOPH & BULGAR 1 EACH PACKET PO SCH (12:36)
--- NOTE | 2017-02-09 13:14 | XR ---
EXAMINATION TYPE: XR chest 2V DATE OF EXAM: 02/09/2017 COMPARISON: 02/07/2017 TECHNIQUE: PA and lateral views submitted. HISTORY: Shortness of breath FINDINGS: Diffuse interstitial pattern seen. There is areas of consolidation involving the upper lobes bilatera lly. No pleural effusion or pneumothorax. Biapical pleural thickening. Arthropathy of the shoulders w ith diffuse osteopenia. Heart is enlarged and there is atherosclerotic change of the aorta. IMPRESSION: 1. Stable x-ray demonstrating bilateral upper lobe infiltrate and nodularity with findings suggestive of pulmonary fibrosis.
--- NOTE | 2017-02-09 15:26 | P.PN ---
Subjective 75-year-old female, patient of Dr. Rivero with a history of a well- established idiopathic pulmonary fibrosis on Esbriet,started on a new anti- fibrotic drug by Dr. 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 Patient presented to the emergency department at [facility] complaining of back pain between her shoulder blade area along with significant shortness of breath cough and wheezes and worsening symptoms compared to her baseline. Patient also developed to have fever, chills and mildly productive cough. She was out of breath and had an episode of gasping for past couple of days patient is at 2 L of oxygen at home is currently requiring 2.5 L. She does have some discomfort but it's related to her breathing but denies any chest pain. Patient denies any sick contact or recent travel. She is nauseous but denies any episode of vomiting, decreased appetite and generalized weakness. She has not noticed that her ankles are more swollen than before. Patient denies any exposure to TB, birds or bats CT was ordered in the ED to rule out pulmonary embolism which was negative. Patient does have a pleural mass but no significant vascular congestion or consolidation seen. 02/08: Patient states she is very tired today and not sleep well last night. She has ambulated to the bathroom abases herself due to shortness of breath with only a few steps. She is normally on home O2 at 2 L nasal cannula. By Dr. Randhawa. 02/09: Last evening, patient developed increasing shortness of breath and atrial fibrillation was transferred to the selective care unit. She was placed on heparin drip and Cardizem drip and subsequently converted to normal sinus rhythm. Patient is still requiring oxygen at 8 L. One dose of IV Lasix given. Repeat chest x-ray ordered that showed stable findings with bilateral upper lobe infiltrate and nodularity with findings suggestive of pulmonary fibrosis.. Objective - Vital Signs Vital signs: Vital Signs Temp 97.4 F L 02/09/17 08:00 Pulse 78 02/09/17 08:00 Resp 19 02/09/17 08:00 BP 140/60 02/09/17 08:00 Pulse Ox 93 L 02/09/17 08:00 Intake & Output 02/08/17 02/09/17 02/09/17 18:59 06:59 18:59 Intake Total 50 142.24 236 Output Total 4 Balance 46 142.24 236 Weight 78 kg Intake: Intake, IV Titration 50 142.24 Amount Heparin Sodium,Porcine/ 142.24 D5w Pmx 25,000 unit In Dextrose/Water 1 500ml. bag @ 12 UNITS/KG/HR 19. 05 mls/hr IV .Q24H [facility] Rx #:[id number] cefTRIAXone 1,000 mg In 50 Sodium Chloride 0.9% 50 ml @ 100 mls/hr IVPB Q24H [facility] Rx#:[id number] Oral 236 Output: Urine 4 Other: Voiding Method Toilet Toilet # Voids 2 # Bowel Movements 1 - Exam General appearance: average body habitus, no acute distress - EENT Eyes: EOMI, PERRLA, no photophobia ENT: normal oropharynx Ears: bilateral: normal - Neck Carotids: bilateral: upstroke normal - Respiratory Respiratory: bilateral: rales, rhonchi, wheezing, negative: CTA, dullness, prolonged expiration - Cardiovascular Rhythm: regular Heart sounds: normal: S1, S2 Abnormal Heart Sounds: no systolic murmur, no diastolic murmur - Gastrointestinal General gastrointestinal: normal bowel sounds, soft, no tenderness - Integumentary Integumentary: no flushed, no jaundiced - Neurologic Neurologic: CNII-XII intact - Musculoskeletal Musculoskeletal: gait normal, generalized weakness, no strength equal bilaterally - Psychiatric Psychiatric: A&O x's 3, appropriate affect - Labs CBC & Chem 7: 02/09/17 04:06 02/09/17 04:06 Labs: Abnormal Lab Results - Last 24 Hours (Table) 02/08/17 02/08/17 02/08/17 Range/Units 17:01 20:22 22:17 WBC 15.9 H (3.8-10.6) k/uL RBC (3.80-5.40) m/uL MCV (80.0-100.0) fL Neutrophils # 15.2 H (1.3-7.7) k/uL Lymphocytes # 0.3 L (1.0-4.8) k/uL APTT (22.0-30.0) sec Sodium (137-145) mmol/L BUN (7-17) mg/dL Glucose (74-99) mg/dL POC Glucose (mg/dL) 142 H 141 H (75-99) mg/dL AST (14-36) U/L ALT (9-52) U/L Total Protein (6.3-8.2) g/dL Albumin (3.5-5.0) g/dL TSH (0.465-4.680) mIU/L 02/08/17 02/08/17 02/09/17 Range/Units 22:17 22:17 00:13 WBC (3.8-10.6) k/uL RBC (3.80-5.40) m/uL MCV (80.0-100.0) fL Neutrophils # (1.3-7.7) k/uL Lymphocytes # (1.0-4.8) k/uL APTT 20.4 L (22.0-30.0) sec Sodium 134 L (137-145) mmol/L BUN 20 H (7-17) mg/dL Glucose 179 H (74-99) mg/dL POC Glucose (mg/dL) 156 H (75-99) mg/dL AST 72 H (14-36) U/L ALT 83 H (9-52) U/L Total Protein (6.3-8.2) g/dL Albumin (3.5-5.0) g/dL TSH 0.269 L (0.465-4.680) mIU/L 02/09/17 02/09/17 02/09/17 Range/Units 04:06 04:06 04:06 WBC 14.7 H (3.8-10.6) k/uL RBC 3.75 L (3.80-5.40) m/uL MCV 100.1 H (80.0-100.0) fL Neutrophils # 13.9 H (1.3-7.7) k/uL Lymphocytes # 0.3 L (1.0-4.8) k/uL APTT 41.5 H (22.0-30.0) sec Sodium 136 L (137-145) mmol/L BUN 20 H (7-17) mg/dL Glucose 129 H (74-99) mg/dL POC Glucose (mg/dL) (75-99) mg/dL AST 64 H (14-36) U/L ALT 86 H (9-52) U/L Total Protein 5.9 L (6.3-8.2) g/dL Albumin 3.3 L (3.5-5.0) g/dL TSH (0.465-4.680) mIU/L 02/09/17 02/09/17 Range/Units 06:02 11:29 WBC (3.8-10.6) k/uL RBC (3.80-5.40) m/uL MCV (80.0-100.0) fL Neutrophils # (1.3-7.7) k/uL Lymphocytes # (1.0-4.8) k/uL APTT (22.0-30.0) sec Sodium (137-145) mmol/L BUN (7-17) mg/dL Glucose (74-99) mg/dL POC Glucose (mg/dL) 139 H 162 H (75-99) mg/dL AST (14-36) U/L ALT (9-52) U/L Total Protein (6.3-8.2) g/dL Albumin (3.5-5.0) g/dL TSH (0.465-4.680) mIU/L Microbiology - Last 24 Hours (Table) 02/07/17 08:58 Blood Culture - Preliminary Blood No Growth after 48 hours Assessment and Plan Plan: 1 acute on chronic hypoxic respiratory failure: Combination of pulmonary fibrosis, infection, COPD exacerbation and possible metastasis. 2 COPD exacerbation: With patient's current symptoms patient will be on Solu- Medrol, DuoNeb, Pulmicort and will consult pulmonary. 3 advance pulmonary fibrosis: Long-standing has been seen pulmonary for long time continue current pulmonary medication at this point. 4 febrile illness likley secondary to severe bronchitis - continue Rocephin and azithromycin 5 CAD: No chest pain or angina patient remain on Tenormin and losartan resume medication. 6 hyperlipidemia: Not on any medication currently. 7 arrhythmia: Has been doing very well on atenolol. 8 severe GERD/GI prophylaxis: Patient will be on Nexium 40 mg daily. 9 new onset atrial fibrillation, paroxysmal. Patient has been on IV Cardizem and heparin drips. Cardiology is following. Continue atenolol 50 mg twice daily. DVT prophylaxis: Patient will be on heparin subcutaneous. CODE STATUS: Full code. Discharge plan: Patient plans to return home. Impression and plan of care have been directed as dictated by the signing physician. Ratna Arredondo nurse practitioner acting as scribe for signing physician.
[2017-02-09] MEDS: AZITHROMYCIN 500 MG TAB PO SCH (15:39)
[2017-02-09] MEDS ORDERED: AZITHROMYCIN 500 MG TAB PO SCH (16:00)
--- NOTE | 2017-02-09 16:04 | P.PN ---
Subjective Principal diagnosis: Worsening pulmonary fibrosis, COPD exacerbation, possible underlying pneumonitis. This is a 76-year-old female who is quite familiar to my service. Patient is known to have history of severe pulmonary fibrosis, felt to be usual interstitial pneumonitis and she has been placed on esbriet. In addition to her pulmonary fibrosis, patient is also known to have history of severe COPD, and history of a left upper lobe mass were and it initial diagnosis could never be established, but it was felt to be malignant. Medication and CT-guided needle biopsies failed to establish the diagnosis, patient was even referred to [facility] surgical staff, and it was felt that the patient is not a good surgical candidate, it was recommended that we treat the mass as malignant. Patient was given radiation therapy and she developed some component of radiation pneumonitis in the left upper lobe. Patient developed significant pain and worsening shortness of breath however she responded well to a maintenance dose of prednisone. She was also placed on auction 4 chronic hypoxic respiratory failure and kept on multiple bronchodilators. Patient was actually scheduled to have a repeat CT of the chest to follow-up on her interstitial lung disease and on her left upper lobe mass in early February. Patient presented today with mostly increased shortness of breath for the last few days. Dyspnea with any exertion, some productive cough with yellow phlegm, low-grade fever, no chills, no hemoptysis, and no chest pain. Patient felt that her pulmonary condition has been going downhill. Hence the patient came into the ER. CT angiogram of the chest showed no evidence of pulmonary embolism , it did show her usual pulmonary fibrosis, and the areas of nodularity in the left upper lobe unchanged compared to previous CT of the chest. A new left upper lobe nodule noted 9.8 mm in the left upper lobe and there was pleural thickening. Patient was admitted, placed on antibiotics, bronchodilators, steroids, and I was asked to see her on consultation. Upon my evaluation, I reviewed the CT of the chest findings with the patient, and explained to her that there is no evidence of thromboembolic disease. But she does have severe chronic interstitial lung disease along with underlying emphysema and bronchiectasis. On 02/08/2017 the patient is seen in follow-up. She continues to experience significant respiratory distress even going to the bedside commode. She states it takes her a while to recover after those episodes.continues on 3 L oxygen per nasal cannula with oxygen saturation around 92-93%. On IV antibiotics in the form of Rocephin and Zithromax, systemic steroids Solu-Medrol 60 mg every 6 hours and DuoNeb nebulized treatments. She does state that occasionally she has heart palpitations with the nebulized treatments. No significant sputum production. Lung sounds are coarse and respiratory crackles over posterior basis. Good air entry noted. No wheezing. No rhonchi. Continues on Esbriet for history of UIP. no febrile episodes through the night.Blood culture shows no growth at 24 hours. Remains marginal in terms of her abilityto tolerate even limited activity. Patient was reevaluated today on 02/09/2017, feeling better today for the first time. Patient was given a dose of Lasix earlier, hence I will try a maintenance Lasix dose on a daily basis at 20 mg by mouth daily. Patient is complaining of shortness of breath, but improved compared to her admission status. Last night, patient developed intermittent episodes of atrial fibrillation hence she was placed on selective. Placed on heparin and Cardizem drip, converted to sinus rhythm. 1 Lasix dose was given, chest x-ray is basically about the same. Again it shows interstitial lung disease, the possibility of underlying infection/pneumonitis is not entirely ruled out. Even the possibility of underlying component of congestive heart failure is also not entirely ruled out. But considering the patient improved with Lasix, I will place on a maintenance dose of Lasix on a daily basis. Objective - Vital Signs Vital signs: Vital Signs Temp 97.4 F L 02/09/17 08:00 Pulse 78 02/09/17 08:00 Resp 19 02/09/17 08:00 BP 140/60 02/09/17 08:00 Pulse Ox 93 L 02/09/17 08:00 Intake & Output 02/08/17 02/09/17 02/09/17 18:59 06:59 18:59 Intake Total 50 142.24 472 Output Total 4 400 Balance 46 142.24 72 Weight 78 kg Intake: Intake, IV Titration 50 142.24 Amount Heparin Sodium,Porcine/ 142.24 D5w Pmx 25,000 unit In Dextrose/Water 1 500ml. bag @ 12 UNITS/KG/HR 19. 05 mls/hr IV .Q24H [facility] Rx #:[id number] cefTRIAXone 1,000 mg In 50 Sodium Chloride 0.9% 50 ml @ 100 mls/hr IVPB Q24H [facility] Rx#:[id number] Oral 472 Output: Urine 4 400 Other: Voiding Method Toilet Toilet # Voids 2 # Bowel Movements 1 - Exam GENERAL EXAM: Alert, active, comfortable in no apparent distress. HEAD: Normocephalic. EYES: Normal reaction of pupils, equal size. NOSE: Clear with pink turbinates. THROAT: No erythema or exudates. NECK: No masses, no JVD. CHEST: No chest wall deformity. LUNGS: Equal air entry with no wheeze, rhonchi or dullness. Coarse crackles at posterior bases CVS: S1 and S2 normal with no audible mumurs, regular rhythm. ABDOMEN: No hepatosplenomegaly, normal bowel sounds, no guarding or rigidity. SPINE: No scoliosis or deformity SKIN: No rashes CENTRAL NERVOUS SYSTEM: No focal deficits, tone is normal in all 4 extremities. - Labs CBC & Chem 7: 02/09/17 04:06 02/09/17 04:06 Labs: Abnormal Lab Results - Last 24 Hours (Table) 02/08/17 02/08/17 02/08/17 Range/Units 17:01 20:22 22:17 WBC 15.9 H (3.8-10.6) k/uL RBC (3.80-5.40) m/uL MCV (80.0-100.0) fL Neutrophils # 15.2 H (1.3-7.7) k/uL Lymphocytes # 0.3 L (1.0-4.8) k/uL APTT (22.0-30.0) sec Sodium (137-145) mmol/L BUN (7-17) mg/dL Glucose (74-99) mg/dL POC Glucose (mg/dL) 142 H 141 H (75-99) mg/dL AST (14-36) U/L ALT (9-52) U/L Total Protein (6.3-8.2) g/dL Albumin (3.5-5.0) g/dL TSH (0.465-4.680) mIU/L 02/08/17 02/08/17 02/09/17 Range/Units 22:17 22:17 00:13 WBC (3.8-10.6) k/uL RBC (3.80-5.40) m/uL MCV (80.0-100.0) fL Neutrophils # (1.3-7.7) k/uL Lymphocytes # (1.0-4.8) k/uL APTT 20.4 L (22.0-30.0) sec Sodium 134 L (137-145) mmol/L BUN 20 H (7-17) mg/dL Glucose 179 H (74-99) mg/dL POC Glucose (mg/dL) 156 H (75-99) mg/dL AST 72 H (14-36) U/L ALT 83 H (9-52) U/L Total Protein (6.3-8.2) g/dL Albumin (3.5-5.0) g/dL TSH 0.269 L (0.465-4.680) mIU/L 02/09/17 02/09/17 02/09/17 Range/Units 04:06 04:06 04:06 WBC 14.7 H (3.8-10.6) k/uL RBC 3.75 L (3.80-5.40) m/uL MCV 100.1 H (80.0-100.0) fL Neutrophils # 13.9 H (1.3-7.7) k/uL Lymphocytes # 0.3 L (1.0-4.8) k/uL APTT 41.5 H (22.0-30.0) sec Sodium 136 L (137-145) mmol/L BUN 20 H (7-17) mg/dL Glucose 129 H (74-99) mg/dL POC Glucose (mg/dL) (75-99) mg/dL AST 64 H (14-36) U/L ALT 86 H (9-52) U/L Total Protein 5.9 L (6.3-8.2) g/dL Albumin 3.3 L (3.5-5.0) g/dL TSH (0.465-4.680) mIU/L 02/09/17 02/09/17 Range/Units 06:02 11:29 WBC (3.8-10.6) k/uL RBC (3.80-5.40) m/uL MCV (80.0-100.0) fL Neutrophils # (1.3-7.7) k/uL Lymphocytes # (1.0-4.8) k/uL APTT (22.0-30.0) sec Sodium (137-145) mmol/L BUN (7-17) mg/dL Glucose (74-99) mg/dL POC Glucose (mg/dL) 139 H 162 H (75-99) mg/dL AST (14-36) U/L ALT (9-52) U/L Total Protein (6.3-8.2) g/dL Albumin (3.5-5.0) g/dL TSH (0.465-4.680) mIU/L Microbiology - Last 24 Hours (Table) 02/07/17 08:58 Blood Culture - Preliminary Blood No Growth after 48 hours Assessment and Plan Plan: Impression: 1 acute on chronic hypoxic respiratory failure secondary to severe and worsening pulmonary fibrosis/UIP, chronic obstructive pulmonary disease, and bronchiectasis. As well as history of radiation pneumonitis involving the left upper lobe. Possibility of underlying pneumonia and congestive heart failure is not entirely ruled out, patient did respond to Lasix dose has we'll place on a maintenance dose of Lasix. Patient may have been experiencing intermittent episodes of atrial fibrillation, and that might be leading to more shortness of breath and possibly some component of failure. Presently in sinus rhythm, on telemetry being monitored. 2 severe underlying COPD 3 severe interstitial lung disease, UIP 4 bronchiectasis 5 radiation pneumonitis and strongly suspect underlying malignancy involving the left upper lobe 6 cannot rule out underlying pneumonitis and bacterial infection hence the patient will need to be empirically covered with antibiotics. 7 multiple comorbidities including underlying coronary artery disease, hyperlipidemia, history of GERD, history of benign essential hypertension, history of osteoarthritis. Recommendation: Continue present treatment plan including antibiotics, bronchodilators, high dose of Solu-Medrol, resume pirfenedone Lasix, was added and will continue to follow. Time with Patient: Less than 30
[2017-02-09 17:00] LABS: Glucose,Whole Blood 121 mg/dL (75-99)
[2017-02-09] MEDS ORDERED: VANCOMYCIN IV PER PHARMACY 1 EACH MISC MISCELLANE PRN (17:46)
[2017-02-09] MEDS: VANCOMYCIN 1,500 MG in SODIUM CHLORIDE 0.9% 250 ML IVPB SCH (19:09)
[2017-02-09 20:33] LABS: Glucose,Whole Blood 131 mg/dL (75-99)
[2017-02-09] MEDS: HEPARIN SODIUM,PORCINE 5,000 UNIT/ML 1 ML VIAL SQ SCH (20:36)
[2017-02-09] MEDS: ATENOLOL 50 MG TAB PO SCH (20:36)
[2017-02-10] MEDS: methylPREDNISolone SOD SUCCI 125 MG/2 ML VIAL IV SCH ×4 (00:50→18:57)
[2017-02-10] MEDS: LEVALBUTEROL NEB 1.25 MG/3 ML AMP INHALATION SCH ×3 (03:39→11:53)
[2017-02-10 05:47] LABS: Glucose,Whole Blood 119 mg/dL (75-99)
[2017-02-10 06:17] LABS: Basophils % (A) 0 %; CH 33.5; CHCM 33.4; Eosinophils % (A) 0 %; HCT 37.8 % (34.0-46.0); HDW 2.75; HGB 12.3 gm/dL (11.4-16.0); Luc # (Auto) 0.02; Luc % (Auto) 0; Lymphocytes # (A) 0.3 k/uL (1.0-4.8); Lymphocytes % (A) 3 %; MCH 32.7 pg (25.0-35.0); MCHC 32.5 g/dL (31.0-37.0); MCV 100.7 fL (80.0-100.0); Mean Platelet Volume 7.6; Monocytes # (A) 0.3 k/uL (0-1.0); Monocytes % (A) 3 %; Neutrophils # (A) 10.7 k/uL (1.3-7.7); Neutrophils % (A) 94 %; RBC 3.75 m/uL (3.80-5.40); RDW 12.9 % (11.5-15.5); WBC 11.4 k/uL (3.8-10.6); WBC (Perox) 11.89
[2017-02-10] MEDS: INSULIN LISPRO (humaLOG) 300 UNIT/3 ML VIAL SQ SCH ×4 (06:27→21:50)
[2017-02-10 08:18] LABS: Anion Gap 11 mmol/L; Blood Urea Nitrogen 27 mg/dL (7-17); Calcium 9.3 mg/dL (8.4-10.2); Carbon Dioxide 25 mmol/L (22-30); Chloride 98 mmol/L (98-107); Glucose 111 mg/dL (74-99); Non-African American GFR(MDRD) >60 (>60 ml/min/1.73 sqM); Potassium 4.8 mmol/L (3.5-5.1); Sodium 134 mmol/L (137-145)
[2017-02-10] MEDS: PIRFENIDONE 267 MG PO SCH ×3 (08:28→17:15)
[2017-02-10] MEDS: FAMOTIDINE 20 MG TAB PO SCH ×2 (08:29→21:52)
[2017-02-10] MEDS: ATENOLOL 50 MG TAB PO SCH ×2 (08:29→21:52)
[2017-02-10] MEDS: FUROSEMIDE 20 MG TAB PO SCH (08:29)
[2017-02-10] MEDS: HEPARIN SODIUM,PORCINE 5,000 UNIT/ML 1 ML VIAL SQ SCH ×2 (08:30→08:58)
[2017-02-10] MEDS: LOSARTAN 50 MG TAB PO SCH (08:30)
[2017-02-10] MEDS: HYDROcodone/APAP 5-325MG 1 EACH TAB PO PRN (09:26)
[2017-02-10] MEDS: VANCOMYCIN 1,500 MG in SODIUM CHLORIDE 0.9% 250 ML IVPB SCH (10:12)
--- NOTE | 2017-02-10 11:33 | P.PN ---
Subjective Principal diagnosis: Worsening pulmonary fibrosis, COPD exacerbation, possible underlying pneumonitis. This is a 76-year-old female who is quite familiar to my service. Patient is known to have history of severe pulmonary fibrosis, felt to be usual interstitial pneumonitis and she has been placed on esbriet. In addition to her pulmonary fibrosis, patient is also known to have history of severe COPD, and history of a left upper lobe mass were and it initial diagnosis could never be established, but it was felt to be malignant. Medication and CT-guided needle biopsies failed to establish the diagnosis, patient was even referred to [facility] surgical staff, and it was felt that the patient is not a good surgical candidate, it was recommended that we treat the mass as malignant. Patient was given radiation therapy and she developed some component of radiation pneumonitis in the left upper lobe. Patient developed significant pain and worsening shortness of breath however she responded well to a maintenance dose of prednisone. She was also placed on auction 4 chronic hypoxic respiratory failure and kept on multiple bronchodilators. Patient was actually scheduled to have a repeat CT of the chest to follow-up on her interstitial lung disease and on her left upper lobe mass in early February. Patient presented today with mostly increased shortness of breath for the last few days. Dyspnea with any exertion, some productive cough with yellow phlegm, low-grade fever, no chills, no hemoptysis, and no chest pain. Patient felt that her pulmonary condition has been going downhill. Hence the patient came into the ER. CT angiogram of the chest showed no evidence of pulmonary embolism , it did show her usual pulmonary fibrosis, and the areas of nodularity in the left upper lobe unchanged compared to previous CT of the chest. A new left upper lobe nodule noted 9.8 mm in the left upper lobe and there was pleural thickening. Patient was admitted, placed on antibiotics, bronchodilators, steroids, and I was asked to see her on consultation. Upon my evaluation, I reviewed the CT of the chest findings with the patient, and explained to her that there is no evidence of thromboembolic disease. But she does have severe chronic interstitial lung disease along with underlying emphysema and bronchiectasis. On 02/08/2017 the patient is seen in follow-up. She continues to experience significant respiratory distress even going to the bedside commode. She states it takes her a while to recover after those episodes.continues on 3 L oxygen per nasal cannula with oxygen saturation around 92-93%. On IV antibiotics in the form of Rocephin and Zithromax, systemic steroids Solu-Medrol 60 mg every 6 hours and DuoNeb nebulized treatments. She does state that occasionally she has heart palpitations with the nebulized treatments. No significant sputum production. Lung sounds are coarse and respiratory crackles over posterior basis. Good air entry noted. No wheezing. No rhonchi. Continues on Esbriet for history of UIP. no febrile episodes through the night.Blood culture shows no growth at 24 hours. Remains marginal in terms of her abilityto tolerate even limited activity. Patient was reevaluated today on 02/09/2017, feeling better today for the first time. Patient was given a dose of Lasix earlier, hence I will try a maintenance Lasix dose on a daily basis at 20 mg by mouth daily. Patient is complaining of shortness of breath, but improved compared to her admission status. Last night, patient developed intermittent episodes of atrial fibrillation hence she was placed on selective. Placed on heparin and Cardizem drip, converted to sinus rhythm. 1 Lasix dose was given, chest x-ray is basically about the same. Again it shows interstitial lung disease, the possibility of underlying infection/pneumonitis is not entirely ruled out. Even the possibility of underlying component of congestive heart failure is also not entirely ruled out. But considering the patient improved with Lasix, I will place on a maintenance dose of Lasix on a daily basis. Reevaluated today on 02/10/2017, continues to feel a bit better compared to how she felt a few days ago. Remains on antibiotics, steroids, bronchodilators, and diuretics. Her last chest x-ray was basically about the same, but clinically the patient stated that she was feeling better. CBC was reviewed and basic metabolic profile was also reviewed. They seem to be relatively normal. Objective - Vital Signs Vital signs: Vital Signs Temp 97.1 F L 02/10/17 08:33 Pulse 80 02/10/17 08:33 Resp 18 02/10/17 08:33 BP 166/79 02/10/17 08:33 Pulse Ox 91 L 02/10/17 08:33 Intake & Output 02/09/17 02/10/17 02/10/17 18:59 06:59 18:59 Intake Total 708 236 Output Total 400 Balance 308 236 Weight 78.7 kg Intake: Oral 708 236 Output: Urine 400 Other: Voiding Method Toilet - Exam GENERAL EXAM: Alert, active, comfortable in no apparent distress. HEAD: Normocephalic. EYES: Normal reaction of pupils, equal size. NOSE: Clear with pink turbinates. THROAT: No erythema or exudates. NECK: No masses, no JVD. CHEST: No chest wall deformity. LUNGS: Equal air entry with no wheeze, rhonchi or dullness. Coarse crackles at posterior bases CVS: S1 and S2 normal with no audible mumurs, regular rhythm. ABDOMEN: No hepatosplenomegaly, normal bowel sounds, no guarding or rigidity. SPINE: No scoliosis or deformity SKIN: No rashes CENTRAL NERVOUS SYSTEM: No focal deficits, tone is normal in all 4 extremities. - Labs CBC & Chem 7: 02/10/17 05:23 02/10/17 05:23 Labs: Abnormal Lab Results - Last 24 Hours (Table) 02/09/17 02/09/17 02/09/17 Range/Units 11:29 16:46 20:32 WBC (3.8-10.6) k/uL RBC (3.80-5.40) m/uL MCV (80.0-100.0) fL Neutrophils # (1.3-7.7) k/uL Lymphocytes # (1.0-4.8) k/uL Sodium (137-145) mmol/L BUN (7-17) mg/dL Glucose (74-99) mg/dL POC Glucose (mg/dL) 162 H 121 H 131 H (75-99) mg/dL 02/10/17 02/10/17 02/10/17 Range/Units 05:23 05:23 05:45 WBC 11.4 H (3.8-10.6) k/uL RBC 3.75 L (3.80-5.40) m/uL MCV 100.7 H (80.0-100.0) fL Neutrophils # 10.7 H (1.3-7.7) k/uL Lymphocytes # 0.3 L (1.0-4.8) k/uL Sodium 134 L (137-145) mmol/L BUN 27 H (7-17) mg/dL Glucose 111 H (74-99) mg/dL POC Glucose (mg/dL) 119 H (75-99) mg/dL Microbiology - Last 24 Hours (Table) 02/09/17 08:58 Blood Culture Gram Stain - Preliminary Blood Blood Culture - Preliminary Coagulase Negative Staph 02/07/17 08:58 Blood Culture - Final Blood Assessment and Plan Plan: Impression: 1 acute on chronic hypoxic respiratory failure secondary to severe and worsening pulmonary fibrosis/UIP, chronic obstructive pulmonary disease, and bronchiectasis. As well as history of radiation pneumonitis involving the left upper lobe. Possibility of underlying pneumonia and congestive heart failure is not entirely ruled out, patient did respond to Lasix dose has we'll place on a maintenance dose of Lasix. Patient may have been experiencing intermittent episodes of atrial fibrillation, and that might be leading to more shortness of breath and possibly some component of failure. Presently in sinus rhythm, on telemetry being monitored. 2 severe underlying COPD 3 severe interstitial lung disease, UIP 4 bronchiectasis 5 radiation pneumonitis and strongly suspect underlying malignancy involving the left upper lobe 6 cannot rule out underlying pneumonitis and bacterial infection hence the patient will need to be empirically covered with antibiotics. 7 multiple comorbidities including underlying coronary artery disease, hyperlipidemia, history of GERD, history of benign essential hypertension, history of osteoarthritis. Recommendation: Continue present treatment plan including antibiotics, bronchodilators, high dose of Solu-Medrol, resume pirfenedone .Lasix, was added and will continue to follow. Possible discharge planning early pump. Time with Patient: Less than 30
[2017-02-10 12:01] LABS: Glucose,Whole Blood 147 mg/dL (75-99)
[2017-02-10] MEDS: LACTOBACILLUS ACIDOPH & BULGAR 1 EACH PACKET PO SCH (12:25)
--- NOTE | 2017-02-10 12:30 | P.PN ---
Subjective Principal diagnosis: Dyspnea, COPD This is a pleasant 76-year-old female patient with history of idiopathic pulmonary fibrosis, COPD, left upper lung mass, status post radiation , hypertension and hyperlipidemia, palpitations about 20 years ago with subsequent EP study that came back inconclusive according to the patient. She follows with Dr. ELODIA Bhatti in the office. She initially presented to the emergency department with complaints of back pain and extreme shortness of breath and wheezing that was significantly worse compared to her baseline. She also developed fever, chills and a productive cough. CTA of the chest was done and was negative for PE and showed stable left upper lung nodule with a new 9.8 mm left upper lobe nodule and pleural thickening. The patient follows with Dr. Randhawa. We were asked to see the patient in consultation due to an episode of atrial fibrillation with rapid ventricular response while on the MedSurg unit. Patient says last night she was resting in bed developed a feeling of a rapid heartbeat along with some chest discomfort and shortness of breath. EKG showed patient was in atrial fibrillation with rapid ventricular response. She was transferred to selective care unit and started on Cardizem drip and heparin drip. She is on atenolol 25 mg by mouth twice a day, this is a home medication. TSH was checked on this patient and came back to be low at 0.269, with normal Free T3 and Free T4. Upon examination this morning, patient is maintaining sinus rhythm. No Further complaints of chest discomfort or palpitations. Objective - Vital Signs Vital signs: Vital Signs Temp 97.1 F L 02/10/17 08:33 Pulse 76 02/10/17 12:04 Resp 18 02/10/17 08:33 BP 166/79 02/10/17 08:33 Pulse Ox 91 L 02/10/17 08:33 Intake & Output 02/09/17 02/10/17 02/10/17 18:59 06:59 18:59 Intake Total 708 236 Output Total 400 Balance 308 236 Weight 78.7 kg Intake: Oral 708 236 Output: Urine 400 Other: Voiding Method Toilet - Exam PHYSICAL EXAMINATION: HEENT: Head is atraumatic, normocephalic. Pupils equal, round. Neck is supple. There is no elevated jugular venous pressure. HEART EXAMINATION: Heart sounds regular, S1 and S2 normal. No murmur or gallop heard. CHEST EXAMINATION: Lungs reveal coarse crackles bilaterally. No chest wall tenderness is noted on palpation or with deep breathing. ABDOMEN: Soft, nontender. Bowel sounds are heard. No organomegaly noted. EXTREMITIES: 2+ peripheral pulses with no evidence of peripheral edema and no calf tenderness noted. NEUROLOGIC patient is awake, alert and oriented x3. - Labs CBC & Chem 7: 02/10/17 05:23 02/10/17 05:23 Labs: Abnormal Lab Results - Last 24 Hours (Table) 02/09/17 02/09/17 02/10/17 Range/Units 16:46 20:32 05:23 WBC 11.4 H (3.8-10.6) k/uL RBC 3.75 L (3.80-5.40) m/uL MCV 100.7 H (80.0-100.0) fL Neutrophils # 10.7 H (1.3-7.7) k/uL Lymphocytes # 0.3 L (1.0-4.8) k/uL Sodium (137-145) mmol/L BUN (7-17) mg/dL Glucose (74-99) mg/dL POC Glucose (mg/dL) 121 H 131 H (75-99) mg/dL 02/10/17 02/10/17 02/10/17 Range/Units 05:23 05:45 11:32 WBC (3.8-10.6) k/uL RBC (3.80-5.40) m/uL MCV (80.0-100.0) fL Neutrophils # (1.3-7.7) k/uL Lymphocytes # (1.0-4.8) k/uL Sodium 134 L (137-145) mmol/L BUN 27 H (7-17) mg/dL Glucose 111 H (74-99) mg/dL POC Glucose (mg/dL) 119 H 147 H (75-99) mg/dL Microbiology - Last 24 Hours (Table) 02/09/17 08:58 Blood Culture Gram Stain - Preliminary Blood Blood Culture - Preliminary Coagulase Negative Staph 02/07/17 08:58 Blood Culture - Final Blood Assessment and Plan Plan: Assessment and plan #1 paroxysmal atrial fibrillation with RVR, new onset, currently maintaining sinus rhythm #2 idiopathic pulmonary fibrosis #3 COPD #4 lung mass #5 hypertension From cardiology's perspective, we will continue current dose of atenolol. Start Eliquis 5mg BID. We will see the patient on an as-needed bases. She will follow- up with Dr. ELODIA Bhatti as an outpatient. [employer] note has been reviewed, I agree with a documented findings and plan of care. Patient was seen and examined.
--- NOTE | 2017-02-10 13:45 | P.PN ---
Subjective 75-year-old female, patient of Dr. Rivero with a history of a well- established idiopathic pulmonary fibrosis on Esbriet,started on a new anti- fibrotic drug by Dr. 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 Patient presented to the emergency department at [facility] complaining of back pain between her shoulder blade area along with significant shortness of breath cough and wheezes and worsening symptoms compared to her baseline. Patient also developed to have fever, chills and mildly productive cough. She was out of breath and had an episode of gasping for past couple of days patient is at 2 L of oxygen at home is currently requiring 2.5 L. She does have some discomfort but it's related to her breathing but denies any chest pain. Patient denies any sick contact or recent travel. She is nauseous but denies any episode of vomiting, decreased appetite and generalized weakness. She has not noticed that her ankles are more swollen than before. Patient denies any exposure to TB, birds or bats CT was ordered in the ED to rule out pulmonary embolism which was negative. Patient does have a pleural mass but no significant vascular congestion or consolidation seen. 02/08: Patient states she is very tired today and not sleep well last night. She has ambulated to the bathroom abases herself due to shortness of breath with only a few steps. She is normally on home O2 at 2 L nasal cannula. By Dr. Randhawa. 02/09: Last evening, patient developed increasing shortness of breath and atrial fibrillation was transferred to the selective care unit. She was placed on heparin drip and Cardizem drip and subsequently converted to normal sinus rhythm. Patient is still requiring oxygen at 8 L. One dose of IV Lasix given. Repeat chest x-ray ordered that showed stable findings with bilateral upper lobe infiltrate and nodularity with findings suggestive of pulmonary fibrosis. 02/10: Patient was evaluated today. She was noted to have some atrial fibrillation yesterday, she is currently maintaining sinus rhythm. She is consulted by cardiology, continue current dose of atenolol, and Eliquis 5 mg by mouth twice a day added. She denies any chest pain or palpitations. She continues to require 6L via nasal cannula and is maintaining an O2 saturation of 91%. Pulmonology is on consult. Objective - Vital Signs Vital signs: Vital Signs Temp 97.1 F L 02/10/17 08:33 Pulse 76 02/10/17 12:04 Resp 18 02/10/17 08:33 BP 166/79 02/10/17 08:33 Pulse Ox 91 L 02/10/17 08:33 Intake & Output 02/09/17 02/10/17 02/10/17 18:59 06:59 18:59 Intake Total 708 236 Output Total 400 Balance 308 236 Weight 78.7 kg Intake: Oral 708 236 Output: Urine 400 Other: Voiding Method Toilet - Exam - Exam General appearance: average body habitus, no acute distress - EENT Eyes: EOMI, PERRLA, no photophobia ENT: normal oropharynx Ears: bilateral: normal - Neck Carotids: bilateral: upstroke normal - Respiratory Respiratory: bilateral: rales, rhonchi, wheezing, negative: CTA, dullness, prolonged expiration - Cardiovascular Rhythm: regular Heart sounds: normal: S1, S2 Abnormal Heart Sounds: no systolic murmur, no diastolic murmur - Gastrointestinal General gastrointestinal: normal bowel sounds, soft, no tenderness - Integumentary Integumentary: no flushed, no jaundiced - Neurologic Neurologic: CNII-XII intact - Musculoskeletal Musculoskeletal: gait normal, generalized weakness, no strength equal bilaterally - Psychiatric Psychiatric: A&O x's 3, appropriate affect - Labs CBC & Chem 7: 02/10/17 05:23 02/10/17 05:23 Labs: Abnormal Lab Results - Last 24 Hours (Table) 02/09/17 02/09/17 02/10/17 Range/Units 16:46 20:32 05:23 WBC 11.4 H (3.8-10.6) k/uL RBC 3.75 L (3.80-5.40) m/uL MCV 100.7 H (80.0-100.0) fL Neutrophils # 10.7 H (1.3-7.7) k/uL Lymphocytes # 0.3 L (1.0-4.8) k/uL Sodium (137-145) mmol/L BUN (7-17) mg/dL Glucose (74-99) mg/dL POC Glucose (mg/dL) 121 H 131 H (75-99) mg/dL 02/10/17 02/10/17 02/10/17 Range/Units 05:23 05:45 11:32 WBC (3.8-10.6) k/uL RBC (3.80-5.40) m/uL MCV (80.0-100.0) fL Neutrophils # (1.3-7.7) k/uL Lymphocytes # (1.0-4.8) k/uL Sodium 134 L (137-145) mmol/L BUN 27 H (7-17) mg/dL Glucose 111 H (74-99) mg/dL POC Glucose (mg/dL) 119 H 147 H (75-99) mg/dL Microbiology - Last 24 Hours (Table) 02/09/17 08:58 Blood Culture Gram Stain - Preliminary Blood Blood Culture - Preliminary Coagulase Negative Staph 02/07/17 08:58 Blood Culture - Final Blood Assessment and Plan Plan: 1 acute on chronic hypoxic respiratory failure: Combination of pulmonary fibrosis, infection, COPD exacerbation and possible metastasis. 2 COPD exacerbation: With patient's current symptoms patient will be on Solu- Medrol, DuoNeb, Pulmicort and will consult pulmonary. 3 advance pulmonary fibrosis: Long-standing has been seen pulmonary for long time continue current pulmonary medication at this point. 4 febrile illness likley secondary to severe bronchitis - continue Rocephin and azithromycin 5 CAD: No chest pain or angina patient remain on Tenormin and losartan resume medication. 6 hyperlipidemia: Not on any medication currently. 7 arrhythmia: Has been doing very well on atenolol. 8 severe GERD/GI prophylaxis: Patient will be on Nexium 40 mg daily. 9 new onset atrial fibrillation, paroxysmal. Patient has been on IV Cardizem and heparin drips. Cardiology is following. Continue atenolol 50 mg twice daily, Eliquis 5mg BID DVT prophylaxis: Patient will be on heparin subcutaneous. CODE STATUS: Full code. The above impression and plan of care have been discussed and directed by signing physician. Tiny Arnold nurse practitioner acting as scribe for signing physician.
[2017-02-10] MEDS: ALBUTEROL NEBULIZED 2.5 MG/3 ML INHALATION SCH ×3 (15:45→23:40)
[2017-02-10] MEDS: AZITHROMYCIN 500 MG TAB PO SCH (16:22)
[2017-02-10 17:09] LABS: Glucose,Whole Blood 114 mg/dL (75-99)
[2017-02-10 20:52] LABS: Glucose,Whole Blood 117 mg/dL (75-99)
[2017-02-10] MEDS: APIXABAN 5 MG TAB PO SCH (21:52)
[2017-02-11] MEDS: methylPREDNISolone SOD SUCCI 125 MG/2 ML VIAL IV SCH ×2 (00:15→06:31)
[2017-02-11] MEDS: VANCOMYCIN 1,500 MG in SODIUM CHLORIDE 0.9% 250 ML IVPB SCH (02:07)
[2017-02-11] MEDS: ALBUTEROL NEBULIZED 2.5 MG/3 ML INHALATION SCH ×3 (03:36→11:42)
[2017-02-11 05:37] LABS: Glucose,Whole Blood 122 mg/dL (75-99)
[2017-02-11] MEDS: INSULIN LISPRO (humaLOG) 300 UNIT/3 ML VIAL SQ SCH ×4 (06:18→20:53)
[2017-02-11 06:26] LABS: Basophils % (A) 0 %; CH 33.8; CHCM 33.5; Eosinophils % (A) 0 %; HCT 35.2 % (34.0-46.0); HDW 2.71; HGB 11.8 gm/dL (11.4-16.0); Luc # (Auto) 0.03; Luc % (Auto) 0; Lymphocytes # (A) 0.3 k/uL (1.0-4.8); Lymphocytes % (A) 4 %; MCH 33.9 pg (25.0-35.0); MCHC 33.4 g/dL (31.0-37.0); MCV 101.5 fL (80.0-100.0); Macrocytosis Slight; Mean Platelet Volume 7.4; Monocytes # (A) 0.3 k/uL (0-1.0); Monocytes % (A) 4 %; Neutrophils # (A) 6.9 k/uL (1.3-7.7); Neutrophils % (A) 92 %; RBC 3.47 m/uL (3.80-5.40); RDW 13.1 % (11.5-15.5); WBC 7.5 k/uL (3.8-10.6); WBC (Perox) 7.57
[2017-02-11 06:29] LABS: Anion Gap 7 mmol/L; Blood Urea Nitrogen 24 mg/dL (7-17); Calcium 8.9 mg/dL (8.4-10.2); Carbon Dioxide 29 mmol/L (22-30); Chloride 99 mmol/L (98-107); Glucose 110 mg/dL (74-99); Non-African American GFR(MDRD) >60 (>60 ml/min/1.73 sqM); Potassium 4.8 mmol/L (3.5-5.1); Sodium 135 mmol/L (137-145)
[2017-02-11] MEDS: HYDROcodone/APAP 5-325MG 1 EACH TAB PO PRN ×2 (07:10→20:55)
[2017-02-11] MEDS: PIRFENIDONE 267 MG PO SCH ×3 (07:10→17:24)
[2017-02-11] MEDS: LOSARTAN 50 MG TAB PO SCH (07:57)
[2017-02-11] MEDS: FAMOTIDINE 20 MG TAB PO SCH ×2 (07:57→20:54)
[2017-02-11] MEDS: FUROSEMIDE 20 MG TAB PO SCH (07:57)
[2017-02-11] MEDS: ATENOLOL 50 MG TAB PO SCH ×2 (07:57→20:54)
[2017-02-11] MEDS: APIXABAN 5 MG TAB PO SCH ×2 (07:58→20:54)
[2017-02-11] MEDS ORDERED: methylPREDNISolone SOD SUCCI 40 MG/ML 1 ML VIAL IV SCH (10:00)
--- NOTE | 2017-02-11 11:23 | P.PN ---
Subjective Principal diagnosis: Worsening pulmonary fibrosis, COPD exacerbation, possible underlying pneumonitis. This is a 76-year-old female who is quite familiar to my service. Patient is known to have history of severe pulmonary fibrosis, felt to be usual interstitial pneumonitis and she has been placed on esbriet. In addition to her pulmonary fibrosis, patient is also known to have history of severe COPD, and history of a left upper lobe mass were and it initial diagnosis could never be established, but it was felt to be malignant. Medication and CT-guided needle biopsies failed to establish the diagnosis, patient was even referred to [facility] surgical staff, and it was felt that the patient is not a good surgical candidate, it was recommended that we treat the mass as malignant. Patient was given radiation therapy and she developed some component of radiation pneumonitis in the left upper lobe. Patient developed significant pain and worsening shortness of breath however she responded well to a maintenance dose of prednisone. She was also placed on auction 4 chronic hypoxic respiratory failure and kept on multiple bronchodilators. Patient was actually scheduled to have a repeat CT of the chest to follow-up on her interstitial lung disease and on her left upper lobe mass in early February. Patient presented today with mostly increased shortness of breath for the last few days. Dyspnea with any exertion, some productive cough with yellow phlegm, low-grade fever, no chills, no hemoptysis, and no chest pain. Patient felt that her pulmonary condition has been going downhill. Hence the patient came into the ER. CT angiogram of the chest showed no evidence of pulmonary embolism , it did show her usual pulmonary fibrosis, and the areas of nodularity in the left upper lobe unchanged compared to previous CT of the chest. A new left upper lobe nodule noted 9.8 mm in the left upper lobe and there was pleural thickening. Patient was admitted, placed on antibiotics, bronchodilators, steroids, and I was asked to see her on consultation. Upon my evaluation, I reviewed the CT of the chest findings with the patient, and explained to her that there is no evidence of thromboembolic disease. But she does have severe chronic interstitial lung disease along with underlying emphysema and bronchiectasis. On 02/08/2017 the patient is seen in follow-up. She continues to experience significant respiratory distress even going to the bedside commode. She states it takes her a while to recover after those episodes.continues on 3 L oxygen per nasal cannula with oxygen saturation around 92-93%. On IV antibiotics in the form of Rocephin and Zithromax, systemic steroids Solu-Medrol 60 mg every 6 hours and DuoNeb nebulized treatments. She does state that occasionally she has heart palpitations with the nebulized treatments. No significant sputum production. Lung sounds are coarse and respiratory crackles over posterior basis. Good air entry noted. No wheezing. No rhonchi. Continues on Esbriet for history of UIP. no febrile episodes through the night.Blood culture shows no growth at 24 hours. Remains marginal in terms of her abilityto tolerate even limited activity. Patient was reevaluated today on 02/09/2017, feeling better today for the first time. Patient was given a dose of Lasix earlier, hence I will try a maintenance Lasix dose on a daily basis at 20 mg by mouth daily. Patient is complaining of shortness of breath, but improved compared to her admission status. Last night, patient developed intermittent episodes of atrial fibrillation hence she was placed on selective. Placed on heparin and Cardizem drip, converted to sinus rhythm. 1 Lasix dose was given, chest x-ray is basically about the same. Again it shows interstitial lung disease, the possibility of underlying infection/pneumonitis is not entirely ruled out. Even the possibility of underlying component of congestive heart failure is also not entirely ruled out. But considering the patient improved with Lasix, I will place on a maintenance dose of Lasix on a daily basis. Reevaluated today on 02/10/2017, continues to feel a bit better compared to how she felt a few days ago. Remains on antibiotics, steroids, bronchodilators, and diuretics. Her last chest x-ray was basically about the same, but clinically the patient stated that she was feeling better. CBC was reviewed and basic metabolic profile was also reviewed. They seem to be relatively normal. Reevaluated today on 02/11/2017, patient continues to improve, much improved compared to her baseline upon admission. Less shortness of breath, no cough, no wheezing, she is becoming more ambulatory and active. Patient is almost near her baseline before she was admitted. I believe her paroxysmal atrial fibrillation may have been a major factor for her clinical deterioration, and now that it is controlled, patient is feeling better. Presently in sinus rhythm. CBC is normal. Basic metabolic profile is normal. Meds were all reviewed, remains on Lasix 20 mg daily, I will switch her Solu-Medrol to oral prednisone today. Objective - Vital Signs Vital signs: Vital Signs Temp 98.7 F 02/11/17 07:51 Pulse 72 02/11/17 07:51 Resp 18 02/11/17 07:51 BP 144/65 02/11/17 07:51 Pulse Ox 93 L 02/11/17 07:51 Intake & Output 02/10/17 02/11/17 02/11/17 18:59 06:59 18:59 Intake Total 416 Balance 416 Weight 79 kg Intake: Oral 416 Other: Voiding Method Toilet - Exam GENERAL EXAM: Alert, active, comfortable in no apparent distress. HEAD: Normocephalic. EYES: Normal reaction of pupils, equal size. NOSE: Clear with pink turbinates. THROAT: No erythema or exudates. NECK: No masses, no JVD. CHEST: No chest wall deformity. LUNGS: Equal air entry with no wheeze, rhonchi or dullness. Coarse crackles at posterior bases CVS: S1 and S2 normal with no audible mumurs, regular rhythm. ABDOMEN: No hepatosplenomegaly, normal bowel sounds, no guarding or rigidity. SPINE: No scoliosis or deformity SKIN: No rashes CENTRAL NERVOUS SYSTEM: No focal deficits, tone is normal in all 4 extremities. - Labs CBC & Chem 7: 02/11/17 05:28 02/11/17 05:28 Labs: Abnormal Lab Results - Last 24 Hours (Table) 02/10/17 02/10/17 02/10/17 Range/Units 11:32 16:52 20:50 RBC (3.80-5.40) m/uL MCV (80.0-100.0) fL Lymphocytes # (1.0-4.8) k/uL Sodium (137-145) mmol/L BUN (7-17) mg/dL Glucose (74-99) mg/dL POC Glucose (mg/dL) 147 H 114 H 117 H (75-99) mg/dL 02/11/17 02/11/17 02/11/17 Range/Units 05:28 05:28 05:33 RBC 3.47 L (3.80-5.40) m/uL MCV 101.5 H (80.0-100.0) fL Lymphocytes # 0.3 L (1.0-4.8) k/uL Sodium 135 L (137-145) mmol/L BUN 24 H (7-17) mg/dL Glucose 110 H (74-99) mg/dL POC Glucose (mg/dL) 122 H (75-99) mg/dL Microbiology - Last 24 Hours (Table) 02/09/17 08:58 Blood Culture Gram Stain - Final Blood Blood Culture - Final Staphylococcus epidermidis 02/09/17 18:28 Blood Culture - Preliminary Blood No Growth after 24 hours Assessment and Plan Plan: Impression: 1 acute on chronic hypoxic respiratory failure secondary to severe and worsening pulmonary fibrosis/UIP, chronic obstructive pulmonary disease, and bronchiectasis. As well as history of radiation pneumonitis involving the left upper lobe. Possibility of underlying pneumonia and congestive heart failure is not entirely ruled out, patient did respond to Lasix dose has we'll place on a maintenance dose of Lasix. Patient may have been experiencing intermittent episodes of atrial fibrillation, and that might be leading to more shortness of breath and possibly some component of failure. Presently in sinus rhythm, on telemetry being monitored. 2 severe underlying COPD 3 severe interstitial lung disease, UIP 4 bronchiectasis 5 radiation pneumonitis and strongly suspect underlying malignancy involving the left upper lobe 6 cannot rule out underlying pneumonitis and bacterial infection hence the patient will need to be empirically covered with antibiotics. 7 paroxysmal atrial fibrillation, presently in normal sinus rhythm. 8 multiple comorbidities including underlying coronary artery disease, hyperlipidemia, history of GERD, history of benign essential hypertension, history of osteoarthritis. Recommendation: Continue present treatment plan including antibiotics, bronchodilators, will switch Solu-Medrol to prednisone, continue Lasix, continue to monitor for her paroxysmal atrial fibrillation. Discharge planning most likely in the next 24 hours. Time with Patient: Less than 30
--- NOTE | 2017-02-11 11:41 | P.PN ---
Subjective 75-year-old female, patient of Dr. Rivero with a history of a well- established idiopathic pulmonary fibrosis on Esbriet,started on a new anti- fibrotic drug by Dr. 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 Patient presented to the emergency department at [facility] complaining of back pain between her shoulder blade area along with significant shortness of breath cough and wheezes and worsening symptoms compared to her baseline. Patient also developed to have fever, chills and mildly productive cough. She was out of breath and had an episode of gasping for past couple of days patient is at 2 L of oxygen at home is currently requiring 2.5 L. She does have some discomfort but it's related to her breathing but denies any chest pain. Patient denies any sick contact or recent travel. She is nauseous but denies any episode of vomiting, decreased appetite and generalized weakness. She has not noticed that her ankles are more swollen than before. Patient denies any exposure to TB, birds or bats CT was ordered in the ED to rule out pulmonary embolism which was negative. Patient does have a pleural mass but no significant vascular congestion or consolidation seen. 02/08: Patient states she is very tired today and not sleep well last night. She has ambulated to the bathroom abases herself due to shortness of breath with only a few steps. She is normally on home O2 at 2 L nasal cannula. By Dr. Randhawa. 02/09: Last evening, patient developed increasing shortness of breath and atrial fibrillation was transferred to the selective care unit. She was placed on heparin drip and Cardizem drip and subsequently converted to normal sinus rhythm. Patient is still requiring oxygen at 8 L. One dose of IV Lasix given. Repeat chest x-ray ordered that showed stable findings with bilateral upper lobe infiltrate and nodularity with findings suggestive of pulmonary fibrosis. 02/10: Patient was evaluated today. She was noted to have some atrial fibrillation yesterday, she is currently maintaining sinus rhythm. She is consulted by cardiology, continue current dose of atenolol, and Eliquis 5 mg by mouth twice a day added. She denies any chest pain or palpitations. She continues to require 6L via nasal cannula and is maintaining an O2 saturation of 91%. Pulmonology is on consult. 02/11: Patient was noted to be sitting up in bed resting comfortably, in no acute distress. She reports breathing is a lot better and she feels well, although she was on 6 L nasal cannula, oxygen decreased to 5 L, O2 saturation 97 %. We'll continue to try to wean down oxygen today. ABG ordered, respiratory culture sent this morning. Vancomycin discontinued. She has not had any further episodes of atrial fibrillation, she remains in sinus rhythm. Objective - Vital Signs Vital signs: Vital Signs Temp 98.7 F 02/11/17 07:51 Pulse 72 02/11/17 07:51 Resp 18 02/11/17 07:51 BP 144/65 02/11/17 07:51 Pulse Ox 93 L 02/11/17 07:51 Intake & Output 02/10/17 02/11/17 02/11/17 18:59 06:59 18:59 Intake Total 416 Balance 416 Weight 79 kg Intake: Oral 416 Other: Voiding Method Toilet - Exam - Exam General appearance: average body habitus, no acute distress - EENT Eyes: EOMI, PERRLA, no photophobia ENT: normal oropharynx Ears: bilateral: normal - Neck Carotids: bilateral: upstroke normal - Respiratory Respiratory: bilateral: rales, rhonchi, wheezing, negative: CTA, dullness, prolonged expiration - Cardiovascular Rhythm: regular Heart sounds: normal: S1, S2 Abnormal Heart Sounds: no systolic murmur, no diastolic murmur - Gastrointestinal General gastrointestinal: normal bowel sounds, soft, no tenderness - Integumentary Integumentary: no flushed, no jaundiced - Neurologic Neurologic: CNII-XII intact - Musculoskeletal Musculoskeletal: gait normal, generalized weakness, no strength equal bilaterally - Psychiatric Psychiatric: A&O x's 3, appropriate affect - Labs CBC & Chem 7: 02/11/17 05:28 02/11/17 05:28 Labs: Abnormal Lab Results - Last 24 Hours (Table) 02/10/17 02/10/17 02/10/17 Range/Units 11:32 16:52 20:50 RBC (3.80-5.40) m/uL MCV (80.0-100.0) fL Lymphocytes # (1.0-4.8) k/uL Sodium (137-145) mmol/L BUN (7-17) mg/dL Glucose (74-99) mg/dL POC Glucose (mg/dL) 147 H 114 H 117 H (75-99) mg/dL 02/11/17 02/11/17 02/11/17 Range/Units 05:28 05:28 05:33 RBC 3.47 L (3.80-5.40) m/uL MCV 101.5 H (80.0-100.0) fL Lymphocytes # 0.3 L (1.0-4.8) k/uL Sodium 135 L (137-145) mmol/L BUN 24 H (7-17) mg/dL Glucose 110 H (74-99) mg/dL POC Glucose (mg/dL) 122 H (75-99) mg/dL Microbiology - Last 24 Hours (Table) 02/09/17 08:58 Blood Culture Gram Stain - Final Blood Blood Culture - Final Staphylococcus epidermidis 02/09/17 18:28 Blood Culture - Preliminary Blood No Growth after 24 hours Assessment and Plan Plan: 1 acute on chronic hypoxic respiratory failure: Combination of pulmonary fibrosis, infection, COPD exacerbation and possible metastasis. 2 COPD exacerbation: With patient's current symptoms patient will be on Solu- Medrol, DuoNeb, Pulmicort and will consult pulmonary. 3 advance pulmonary fibrosis: Long-standing has been seen pulmonary for long time continue current pulmonary medication at this point, continue Esbriet. 4 febrile illness likley secondary to severe bronchitis - continue azithromycin 5 CAD: No chest pain or angina patient remain on Tenormin and losartan resume medication. 6 hyperlipidemia: Not on any medication currently. 7 arrhythmia: Has been doing very well on atenolol. 8 severe GERD/GI prophylaxis: Patient will be on Nexium 40 mg daily. 9 new onset atrial fibrillation, paroxysmal. Cardiology is following. Continue atenolol 50 mg twice daily, Eliquis 5mg BID DVT prophylaxis: Patient will be on heparin subcutaneous. GI prophylaxis: Patient is on Pepcid CODE STATUS: Full code. The above impression and plan of care have been discussed and directed by signing physician. Tiny Arnold nurse practitioner acting as scribe for signing physician.
[2017-02-11] MEDS: LACTOBACILLUS ACIDOPH & BULGAR 1 EACH PACKET PO SCH (12:09)
[2017-02-11] MEDS: predniSONE 20 MG TAB PO SCH (12:09)
[2017-02-11 12:17] LABS: Glucose,Whole Blood 112 mg/dL (75-99)
[2017-02-11 12:50] LABS: ABG HCO3 28 mmol/L (21-25); ABG PCO2 37 mmHg (35-45); ABG PH 7.48 (7.35-7.45); ABG PO2 49 mmHg (83-108); ABG TCO2 29 mmol/L (19-24)
[2017-02-11] MEDS: LEVALBUTEROL NEB 1.25 MG/3 ML AMP INHALATION SCH ×2 (13:56→21:58)
[2017-02-11] MEDS: AZITHROMYCIN 500 MG TAB PO SCH (15:57)
[2017-02-11 16:55] LABS: Glucose,Whole Blood 123 mg/dL (75-99)
[2017-02-11 20:54] LABS: Glucose,Whole Blood 119 mg/dL (75-99)
[2017-02-12 06:05] LABS: Glucose,Whole Blood 82 mg/dL (75-99)
[2017-02-12] MEDS: INSULIN LISPRO (humaLOG) 300 UNIT/3 ML VIAL SQ SCH ×4 (06:10→21:08)
[2017-02-12] MEDS: PIRFENIDONE 267 MG PO SCH ×3 (06:35→17:03)
[2017-02-12 06:38] LABS: Basophils % (A) 0 %; CH 32.5; CHCM 32.7; Eosinophils % (A) 0 %; HCT 38.5 % (34.0-46.0); HDW 2.79; HGB 12.5 gm/dL (11.4-16.0); Luc # (Auto) 0.08; Luc % (Auto) 1; Lymphocytes # (A) 0.4 k/uL (1.0-4.8); Lymphocytes % (A) 5 %; MCH 32.4 pg (25.0-35.0); MCHC 32.4 g/dL (31.0-37.0); MCV 99.8 fL (80.0-100.0); Mean Platelet Volume 6.9; Monocytes # (A) 0.6 k/uL (0-1.0); Monocytes % (A) 7 %; Neutrophils # (A) 7.4 k/uL (1.3-7.7); Neutrophils % (A) 87 %; RBC 3.86 m/uL (3.80-5.40); RDW 12.5 % (11.5-15.5); WBC 8.4 k/uL (3.8-10.6); WBC (Perox) 9.35
[2017-02-12 06:44] LABS: Anion Gap 7 mmol/L; Blood Urea Nitrogen 25 mg/dL (7-17); Calcium 8.9 mg/dL (8.4-10.2); Carbon Dioxide 34 mmol/L (22-30); Chloride 96 mmol/L (98-107); Glucose 78 mg/dL (74-99); Non-African American GFR(MDRD) 58 (>60 ml/min/1.73 sqM); Potassium 4.4 mmol/L (3.5-5.1); Sodium 137 mmol/L (137-145)
[2017-02-12] MEDS: LOSARTAN 50 MG TAB PO SCH (08:16)
[2017-02-12] MEDS: FAMOTIDINE 20 MG TAB PO SCH (08:17)
[2017-02-12] MEDS: predniSONE 20 MG TAB PO SCH (08:17)
[2017-02-12] MEDS: ATENOLOL 50 MG TAB PO SCH ×2 (08:17→21:48)
[2017-02-12] MEDS: APIXABAN 5 MG TAB PO SCH ×2 (08:17→21:49)
[2017-02-12] MEDS ORDERED: VANCOMYCIN TROUGH DUE 1 EACH MISC MISCELLANE ONE (09:00)
[2017-02-12] MEDS ORDERED: FUROSEMIDE 10 MG/ML 2 ML VIAL IV SCH (09:00)
[2017-02-12] MEDS: LEVALBUTEROL NEB 1.25 MG/3 ML AMP INHALATION SCH ×3 (09:06→20:51)
--- NOTE | 2017-02-12 09:54 | XR ---
EXAMINATION TYPE: XR chest 1V portable DATE OF EXAM: 02/12/2017 COMPARISON: 02/09/2017 HISTORY: Shortness of breath TECHNIQUE: Single frontal view of the chest is obtained. FINDINGS: Coarsened interstitium seen with left lower lobe infiltrate and small effusion. Atheroscle rotic change aorta. Diffuse osteopenia and arthropathy shoulders. Subsegmental consolidation in both lung apices is stable. IMPRESSION: 1. Correlate for pulmonary fibrosis with areas of subsegmental consolidation stable in appearance.
[2017-02-12] MEDS ORDERED: FUROSEMIDE 10 MG/ML 2 ML VIAL IV STA (10:13)
[2017-02-12] MEDS ORDERED: predniSONE 20 MG TAB PO STA (10:18)
[2017-02-12 11:51] LABS: Glucose,Whole Blood 110 mg/dL (75-99)
[2017-02-12] MEDS: LACTOBACILLUS ACIDOPH & BULGAR 1 EACH PACKET PO SCH (12:05)
--- NOTE | 2017-02-12 14:10 | P.PN ---
Subjective 75-year-old female, patient of Dr. Rivero with a history of a well- established idiopathic pulmonary fibrosis on Esbriet,started on a new anti- fibrotic drug by Dr. 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 Patient presented to the emergency department at [facility] complaining of back pain between her shoulder blade area along with significant shortness of breath cough and wheezes and worsening symptoms compared to her baseline. Patient also developed to have fever, chills and mildly productive cough. She was out of breath and had an episode of gasping for past couple of days patient is at 2 L of oxygen at home is currently requiring 2.5 L. She does have some discomfort but it's related to her breathing but denies any chest pain. Patient denies any sick contact or recent travel. She is nauseous but denies any episode of vomiting, decreased appetite and generalized weakness. She has not noticed that her ankles are more swollen than before. Patient denies any exposure to TB, birds or bats CT was ordered in the ED to rule out pulmonary embolism which was negative. Patient does have a pleural mass but no significant vascular congestion or consolidation seen. 02/08: Patient states she is very tired today and not sleep well last night. She has ambulated to the bathroom abases herself due to shortness of breath with only a few steps. She is normally on home O2 at 2 L nasal cannula. By Dr. Randhawa. 02/09: Last evening, patient developed increasing shortness of breath and atrial fibrillation was transferred to the selective care unit. She was placed on heparin drip and Cardizem drip and subsequently converted to normal sinus rhythm. Patient is still requiring oxygen at 8 L. One dose of IV Lasix given. Repeat chest x-ray ordered that showed stable findings with bilateral upper lobe infiltrate and nodularity with findings suggestive of pulmonary fibrosis.. 02/10: Patient was evaluated today. She was noted to have some atrial fibrillation yesterday, she is currently maintaining sinus rhythm. She is consulted by cardiology, continue current dose of atenolol, and Eliquis 5 mg by mouth twice a day added. She denies any chest pain or palpitations. She continues to require 6L via nasal cannula and is maintaining an O2 saturation of 91%. Pulmonology is on consult. 02/11: Patient was noted to be sitting up in bed resting comfortably, in no acute distress. She reports breathing is a lot better and she feels well, although she was on 6 L nasal cannula, oxygen decreased to 5 L, O2 saturation 97 %. We'll continue to try to wean down oxygen today. ABG ordered, respiratory culture sent this morning. Vancomycin discontinued. She has not had any further episodes of atrial fibrillation, she remains in sinus rhythm. 02/12: Patient continues to have shortness of breath and is requiring more oxygen. She is currently on high flow O2 at 6 L and pulse ox 93%. Solu-Medrol changed to oral prednisone for tomorrow. Lasix IV increase to 40 mg daily. Await further recommendations from Dr. Michel. Objective - Vital Signs Vital signs: Vital Signs Temp 96.9 F L 02/12/17 08:17 Pulse 84 02/12/17 09:17 Resp 20 02/12/17 08:17 BP 155/72 02/12/17 08:17 Pulse Ox 95 02/12/17 08:17 Intake & Output 02/11/17 02/12/17 02/12/17 18:59 06:59 18:59 Intake Total 436 240 240 Balance 436 240 240 Weight 78.9 kg Intake: Oral 436 240 240 Other: Voiding Method Bedside Commode Bedside Commode # Voids 2 3 # Bowel Movements 1 - Exam General appearance: average body habitus, no acute distress - EENT Eyes: EOMI, PERRLA, no photophobia ENT: normal oropharynx Ears: bilateral: normal - Neck Carotids: bilateral: upstroke normal - Respiratory Respiratory: bilateral: rales, rhonchi, wheezing, negative: CTA, dullness, prolonged expiration - Cardiovascular Rhythm: regular Heart sounds: normal: S1, S2 Abnormal Heart Sounds: no systolic murmur, no diastolic murmur - Gastrointestinal General gastrointestinal: normal bowel sounds, soft, no tenderness - Integumentary Integumentary: no flushed, no jaundiced - Neurologic Neurologic: CNII-XII intact - Musculoskeletal Musculoskeletal: gait normal, generalized weakness, no strength equal bilaterally - Psychiatric Psychiatric: A&O x's 3, appropriate affect - Labs CBC & Chem 7: 02/12/17 05:33 02/12/17 05:33 Labs: Abnormal Lab Results - Last 24 Hours (Table) 02/11/17 02/11/17 02/11/17 Range/Units 11:54 12:47 16:39 Lymphocytes # (1.0-4.8) k/uL ABG pH 7.48 H (7.35-7.45) ABG pO2 49 L (83-108) mmHg ABG HCO3 28 H (21-25) mmol/L ABG Total CO2 29 H (19-24) mmol/L ABG O2 Saturation 87.0 L (94-97) % Chloride (98-107) mmol/L Carbon Dioxide (22-30) mmol/L BUN (7-17) mg/dL POC Glucose (mg/dL) 112 H 123 H (75-99) mg/dL 02/11/17 02/12/17 02/12/17 Range/Units 20:52 05:33 05:33 Lymphocytes # 0.4 L (1.0-4.8) k/uL ABG pH (7.35-7.45) ABG pO2 (83-108) mmHg ABG HCO3 (21-25) mmol/L ABG Total CO2 (19-24) mmol/L ABG O2 Saturation (94-97) % Chloride 96 L (98-107) mmol/L Carbon Dioxide 34 H (22-30) mmol/L BUN 25 H (7-17) mg/dL POC Glucose (mg/dL) 119 H (75-99) mg/dL Microbiology - Last 24 Hours (Table) 02/07/17 08:58 Blood Culture - Final Blood 02/11/17 08:00 Gram Stain - Preliminary Sputum 02/09/17 18:28 Blood Culture - Preliminary Blood No Growth after 48 hours 02/09/17 08:58 Blood Culture Gram Stain - Final Blood Blood Culture - Final Staphylococcus epidermidis Assessment and Plan Plan: 1 acute on chronic hypoxic respiratory failure: Combination of pulmonary fibrosis, infection, COPD exacerbation and possible metastasis. 2 COPD exacerbation: With patient's current symptoms patient will be on Solu- Medrol to prednisone, DuoNeb, Pulmicort and will consult pulmonary. 3 advance pulmonary fibrosis: Long-standing has been seen pulmonary for long time continue current pulmonary medication at this point. 4 febrile illness likley secondary to severe bronchitis - continue Rocephin and azithromycin 5 CAD: No chest pain or angina patient remain on Tenormin and losartan resume medication. 6 hyperlipidemia: Not on any medication currently. 7 arrhythmia: Has been doing very well on atenolol. 8 severe GERD/GI prophylaxis: Patient will be on Nexium 40 mg daily. 9 new onset atrial fibrillation, paroxysmal. Patient has been on IV Cardizem and heparin drips. Cardiology is following. Continue atenolol 50 mg twice daily. DVT prophylaxis: Patient will be on heparin subcutaneous. CODE STATUS: Full code. Discharge plan: Patient plans to return home. Impression and plan of care have been directed as dictated by the signing physician. Ratna Arredondo nurse practitioner acting as scribe for signing physician.
--- NOTE | 2017-02-12 16:01 | P.PN ---
Subjective Principal diagnosis: dyspnea, pneumonia, pulmonary fibrosis This is a 76-year-old female who is quite familiar to my service. Patient is known to have history of severe pulmonary fibrosis, felt to be usual interstitial pneumonitis and she has been placed on esbriet. In addition to her pulmonary fibrosis, patient is also known to have history of severe COPD, and history of a left upper lobe mass were and it initial diagnosis could never be established, but it was felt to be malignant. Medication and CT-guided needle biopsies failed to establish the diagnosis, patient was even referred to [facility] surgical staff, and it was felt that the patient is not a good surgical candidate, it was recommended that we treat the mass as malignant. Patient was given radiation therapy and she developed some component of radiation pneumonitis in the left upper lobe. Patient developed significant pain and worsening shortness of breath however she responded well to a maintenance dose of prednisone. She was also placed on auction 4 chronic hypoxic respiratory failure and kept on multiple bronchodilators. Patient was actually scheduled to have a repeat CT of the chest to follow-up on her interstitial lung disease and on her left upper lobe mass in early February. Patient presented today with mostly increased shortness of breath for the last few days. Dyspnea with any exertion, some productive cough with yellow phlegm, low-grade fever, no chills, no hemoptysis, and no chest pain. Patient felt that her pulmonary condition has been going downhill. Hence the patient came into the ER. CT angiogram of the chest showed no evidence of pulmonary embolism , it did show her usual pulmonary fibrosis, and the areas of nodularity in the left upper lobe unchanged compared to previous CT of the chest. A new left upper lobe nodule noted 9.8 mm in the left upper lobe and there was pleural thickening. Patient was admitted, placed on antibiotics, bronchodilators, steroids, and I was asked to see her on consultation. Upon my evaluation, I reviewed the CT of the chest findings with the patient, and explained to her that there is no evidence of thromboembolic disease. But she does have severe chronic interstitial lung disease along with underlying emphysema and bronchiectasis. On 02/08/2017 the patient is seen in follow-up. She continues to experience significant respiratory distress even going to the bedside commode. She states it takes her a while to recover after those episodes.continues on 3 L oxygen per nasal cannula with oxygen saturation around 92-93%. On IV antibiotics in the form of Rocephin and Zithromax, systemic steroids Solu-Medrol 60 mg every 6 hours and DuoNeb nebulized treatments. She does state that occasionally she has heart palpitations with the nebulized treatments. No significant sputum production. Lung sounds are coarse and respiratory crackles over posterior basis. Good air entry noted. No wheezing. No rhonchi. Continues on Esbriet for history of UIP. no febrile episodes through the night.Blood culture shows no growth at 24 hours. Remains marginal in terms of her abilityto tolerate even limited activity. Patient was reevaluated today on 02/09/2017, feeling better today for the first time. Patient was given a dose of Lasix earlier, hence I will try a maintenance Lasix dose on a daily basis at 20 mg by mouth daily. Patient is complaining of shortness of breath, but improved compared to her admission status. Last night, patient developed intermittent episodes of atrial fibrillation hence she was placed on selective. Placed on heparin and Cardizem drip, converted to sinus rhythm. 1 Lasix dose was given, chest x-ray is basically about the same. Again it shows interstitial lung disease, the possibility of underlying infection/pneumonitis is not entirely ruled out. Even the possibility of underlying component of congestive heart failure is also not entirely ruled out. But considering the patient improved with Lasix, I will place on a maintenance dose of Lasix on a daily basis. Reevaluated today on 02/10/2017, continues to feel a bit better compared to how she felt a few days ago. Remains on antibiotics, steroids, bronchodilators, and diuretics. Her last chest x-ray was basically about the same, but clinically the patient stated that she was feeling better. CBC was reviewed and basic metabolic profile was also reviewed. They seem to be relatively normal. Reevaluated today on 02/11/2017, patient continues to improve, much improved compared to her baseline upon admission. Less shortness of breath, no cough, no wheezing, she is becoming more ambulatory and active. Patient is almost near her baseline before she was admitted. I believe her paroxysmal atrial fibrillation may have been a major factor for her clinical deterioration, and now that it is controlled, patient is feeling better. Presently in sinus rhythm. CBC is normal. Basic metabolic profile is normal. Meds were all reviewed, remains on Lasix 20 mg daily, I will switch her Solu-Medrol to oral prednisone today. On 02/12/2017 patient's oxygen requirement is down to 6 L per old nasal cannula. Continues to slowly improve, she continues to increase her activity and tolerated better. chest X-ray from 02/12/2017 has been reviewed and shows pulmonary fibrosis with subsegmental consolidation stable in appearance. Lung sounds are clear with fine respiratory crackles over left posterior base. She denies wheezing, congestion. She's been afebrile. Objective - Vital Signs Vital signs: Vital Signs Temp 96.8 F L 02/12/17 12:26 Pulse 80 02/12/17 13:23 Resp 18 02/12/17 12:26 BP 134/77 02/12/17 12:26 Pulse Ox 93 L 02/12/17 13:51 Intake & Output 02/11/17 02/12/17 02/12/17 18:59 06:59 18:59 Intake Total 436 240 360 Output Total 500 Balance 436 240 -140 Weight 78.9 kg Intake: Oral 436 240 360 Output: Urine 500 Other: Voiding Method Bedside Commode Bedside Commode # Voids 2 3 # Bowel Movements 1 - Exam GENERAL EXAM: Alert, active, comfortable in no apparent distress. HEAD: Normocephalic. EYES: Normal reaction of pupils, equal size. NOSE: Clear with pink turbinates. THROAT: No erythema or exudates. NECK: No masses, no JVD. CHEST: No chest wall deformity. LUNGS: Equal air entry with no wheeze, rhonchi or dullness. Coarse crackles at posterior bases CVS: S1 and S2 normal with no audible mumurs, regular rhythm. ABDOMEN: No hepatosplenomegaly, normal bowel sounds, no guarding or rigidity. SPINE: No scoliosis or deformity SKIN: No rashes CENTRAL NERVOUS SYSTEM: No focal deficits, tone is normal in all 4 extremities. - Labs CBC & Chem 7: 02/12/17 05:33 02/12/17 05:33 Labs: Abnormal Lab Results - Last 24 Hours (Table) 02/11/17 02/11/17 02/12/17 Range/Units 16:39 20:52 05:33 Lymphocytes # 0.4 L (1.0-4.8) k/uL Chloride (98-107) mmol/L Carbon Dioxide (22-30) mmol/L BUN (7-17) mg/dL POC Glucose (mg/dL) 123 H 119 H (75-99) mg/dL 02/12/17 02/12/17 Range/Units 05:33 11:43 Lymphocytes # (1.0-4.8) k/uL Chloride 96 L (98-107) mmol/L Carbon Dioxide 34 H (22-30) mmol/L BUN 25 H (7-17) mg/dL POC Glucose (mg/dL) 110 H (75-99) mg/dL Microbiology - Last 24 Hours (Table) 02/07/17 08:58 Blood Culture - Final Blood 02/11/17 08:00 Gram Stain - Preliminary Sputum 02/09/17 18:28 Blood Culture - Preliminary Blood No Growth after 48 hours Assessment and Plan Plan: Assessment and Plan Impression: 1 acute on chronic hypoxic respiratory failure secondary to severe and worsening pulmonary fibrosis/UIP, chronic obstructive pulmonary disease, and bronchiectasis. As well as history of radiation pneumonitis involving the left upper lobe. 2 severe underlying COPD 3 severe interstitial lung disease, UIP 4 bronchiectasis 5 radiation pneumonitis and strongly suspect underlying malignancy involving the left upper lobe 6 cannot rule out underlying pneumonitis and bacterial infection hence the patient will need to be empirically covered with antibiotics. 7 multiple comorbidities including underlying coronary artery disease, hyperlipidemia, history of GERD, history of benign essential hypertension, history of osteoarthritis. Plan: Continue current treatment including Rocephin and Zithromax antibiotics, DuoNeb nebulized treatments, oral steroids and pirfenedone. Overall long-term prognosis remains poor and guarded. We will continue to follow. I performed a history & physical examination of the patient and discussed their management with my nurse practitioner, Estefanía Colón. I reviewed the nurse practitioner's note and agree with the documented findings and plan of care.
[2017-02-12 16:57] LABS: Glucose,Whole Blood 138 mg/dL (75-99)
[2017-02-12] MEDS: AZITHROMYCIN 500 MG TAB PO SCH (17:03)
[2017-02-12 20:44] LABS: Glucose,Whole Blood 114 mg/dL (75-99)
[2017-02-13 06:25] LABS: Basophils % (A) 0 %; CH 32.7; CHCM 33.1; Eosinophils # (A) 0.1 k/uL (0-0.7); Eosinophils % (A) 1 %; HCT 39.6 % (34.0-46.0); HDW 2.78; Luc # (Auto) 0.04; Luc % (Auto) 1; Lymphocytes # (A) 0.5 k/uL (1.0-4.8); Lymphocytes % (A) 6 %; MCH 32.6 pg (25.0-35.0); Monocytes # (A) 0.5 k/uL (0-1.0); Monocytes % (A) 7 %; Neutrophils # (A) 6.4 k/uL (1.3-7.7); Neutrophils % (A) 85 %; RDW 12.7 % (11.5-15.5); WBC 7.5 k/uL (3.8-10.6)
[2017-02-13 06:28] LABS: Anion Gap 4 mmol/L; Blood Urea Nitrogen 24 mg/dL (7-17); Carbon Dioxide 38 mmol/L (22-30); Chloride 92 mmol/L (98-107); Glucose 80 mg/dL (74-99); Non-African American GFR(MDRD) >60 (>60 ml/min/1.73 sqM); Potassium 4.7 mmol/L (3.5-5.1); Sodium 134 mmol/L (137-145)
[2017-02-13 06:30] LABS: Glucose,Whole Blood 83 mg/dL (75-99)
[2017-02-13] MEDS: INSULIN LISPRO (humaLOG) 300 UNIT/3 ML VIAL SQ SCH ×4 (06:34→22:20)
[2017-02-13] MEDS: HYDROcodone/APAP 5-325MG 1 EACH TAB PO PRN (06:37)
[2017-02-13] MEDS: PIRFENIDONE 267 MG PO SCH ×3 (06:38→17:24)
[2017-02-13] MEDS: APIXABAN 5 MG TAB PO SCH ×2 (08:20→22:19)
[2017-02-13] MEDS: ATENOLOL 50 MG TAB PO SCH ×2 (08:20→22:19)
[2017-02-13] MEDS: predniSONE 20 MG TAB PO SCH (08:21)
[2017-02-13] MEDS: LOSARTAN 50 MG TAB PO SCH (08:22)
[2017-02-13] MEDS: LEVALBUTEROL NEB 1.25 MG/3 ML AMP INHALATION SCH ×3 (08:50→21:53)
[2017-02-13] MEDS ORDERED: FUROSEMIDE 10 MG/ML 4 ML VIAL IV SCH (09:00)
[2017-02-13] MEDS ORDERED: FAMOTIDINE 20 MG TAB PO SCH (09:00)
[2017-02-13 11:44] LABS: Glucose,Whole Blood 142 mg/dL (75-99)
[2017-02-13] MEDS: LACTOBACILLUS ACIDOPH & BULGAR 1 EACH PACKET PO SCH (12:24)
--- NOTE | 2017-02-13 12:25 | P.PN ---
Subjective Principal diagnosis: dyspnea, pneumonia, pulmonary fibrosis This is a 76-year-old female who is quite familiar to my service. Patient is known to have history of severe pulmonary fibrosis, felt to be usual interstitial pneumonitis and she has been placed on esbriet. In addition to her pulmonary fibrosis, patient is also known to have history of severe COPD, and history of a left upper lobe mass were and it initial diagnosis could never be established, but it was felt to be malignant. Medication and CT-guided needle biopsies failed to establish the diagnosis, patient was even referred to [facility] surgical staff, and it was felt that the patient is not a good surgical candidate, it was recommended that we treat the mass as malignant. Patient was given radiation therapy and she developed some component of radiation pneumonitis in the left upper lobe. Patient developed significant pain and worsening shortness of breath however she responded well to a maintenance dose of prednisone. She was also placed on auction 4 chronic hypoxic respiratory failure and kept on multiple bronchodilators. Patient was actually scheduled to have a repeat CT of the chest to follow-up on her interstitial lung disease and on her left upper lobe mass in early February. Patient presented today with mostly increased shortness of breath for the last few days. Dyspnea with any exertion, some productive cough with yellow phlegm, low-grade fever, no chills, no hemoptysis, and no chest pain. Patient felt that her pulmonary condition has been going downhill. Hence the patient came into the ER. CT angiogram of the chest showed no evidence of pulmonary embolism , it did show her usual pulmonary fibrosis, and the areas of nodularity in the left upper lobe unchanged compared to previous CT of the chest. A new left upper lobe nodule noted 9.8 mm in the left upper lobe and there was pleural thickening. Patient was admitted, placed on antibiotics, bronchodilators, steroids, and I was asked to see her on consultation. Upon my evaluation, I reviewed the CT of the chest findings with the patient, and explained to her that there is no evidence of thromboembolic disease. But she does have severe chronic interstitial lung disease along with underlying emphysema and bronchiectasis. On 02/08/2017 the patient is seen in follow-up. She continues to experience significant respiratory distress even going to the bedside commode. She states it takes her a while to recover after those episodes.continues on 3 L oxygen per nasal cannula with oxygen saturation around 92-93%. On IV antibiotics in the form of Rocephin and Zithromax, systemic steroids Solu-Medrol 60 mg every 6 hours and DuoNeb nebulized treatments. She does state that occasionally she has heart palpitations with the nebulized treatments. No significant sputum production. Lung sounds are coarse and respiratory crackles over posterior basis. Good air entry noted. No wheezing. No rhonchi. Continues on Esbriet for history of UIP. no febrile episodes through the night.Blood culture shows no growth at 24 hours. Remains marginal in terms of her abilityto tolerate even limited activity. Patient was reevaluated today on 02/09/2017, feeling better today for the first time. Patient was given a dose of Lasix earlier, hence I will try a maintenance Lasix dose on a daily basis at 20 mg by mouth daily. Patient is complaining of shortness of breath, but improved compared to her admission status. Last night, patient developed intermittent episodes of atrial fibrillation hence she was placed on selective. Placed on heparin and Cardizem drip, converted to sinus rhythm. 1 Lasix dose was given, chest x-ray is basically about the same. Again it shows interstitial lung disease, the possibility of underlying infection/pneumonitis is not entirely ruled out. Even the possibility of underlying component of congestive heart failure is also not entirely ruled out. But considering the patient improved with Lasix, I will place on a maintenance dose of Lasix on a daily basis. Reevaluated today on 02/10/2017, continues to feel a bit better compared to how she felt a few days ago. Remains on antibiotics, steroids, bronchodilators, and diuretics. Her last chest x-ray was basically about the same, but clinically the patient stated that she was feeling better. CBC was reviewed and basic metabolic profile was also reviewed. They seem to be relatively normal. Reevaluated today on 02/11/2017, patient continues to improve, much improved compared to her baseline upon admission. Less shortness of breath, no cough, no wheezing, she is becoming more ambulatory and active. Patient is almost near her baseline before she was admitted. I believe her paroxysmal atrial fibrillation may have been a major factor for her clinical deterioration, and now that it is controlled, patient is feeling better. Presently in sinus rhythm. CBC is normal. Basic metabolic profile is normal. Meds were all reviewed, remains on Lasix 20 mg daily, I will switch her Solu-Medrol to oral prednisone today. On 02/12/2017 patient's oxygen requirement is down to 6 L per old nasal cannula. Continues to slowly improve, she continues to increase her activity and tolerated better. chest X-ray from 02/12/2017 has been reviewed and shows pulmonary fibrosis with subsegmental consolidation stable in appearance. Lung sounds are clear with fine respiratory crackles over left posterior base. She denies wheezing, congestion. She's been afebrile. 02/13/2017 patient continues to improve, she is less short of breath with activity, no cough, no wheezing. She is becoming more active. Her oxygen requirement is down to 5 L per high flow nasal cannula with oxygen saturations around 94%. Significant sputum production, no wheezing, no rhonchi. Lung sounds continue with coarse crackles on the left posterior base greater than the right. Med have been reviewed, patient continues on oral Zithromax and prednisone 40 mg daily. Microbiology results and reviewed sputum culture is positive for Sherri albicans which is likely colonized. Blood Culture positive for Staphylococcus epidermidis, which is likely a contaminated specimen. Objective - Vital Signs Vital signs: Vital Signs Temp 97.1 F L 02/13/17 08:00 Pulse 80 02/13/17 09:05 Resp 16 02/13/17 08:00 BP 115/64 02/13/17 08:00 Pulse Ox 94 L 02/13/17 08:00 Intake & Output 02/12/17 02/13/17 02/13/17 18:59 06:59 18:59 Intake Total 720 130 Output Total 800 Balance -80 130 Weight 77.2 kg Intake: IV 10 Invasive Line 3 10 Oral 720 120 Output: Urine 800 Other: Voiding Method Bedside Commode Toilet Bedside Commode # Voids 3 2 # Bowel Movements 1 - Exam GENERAL EXAM: Alert, active, comfortable in no apparent distress. HEAD: Normocephalic. EYES: Normal reaction of pupils, equal size. NOSE: Clear with pink turbinates. THROAT: No erythema or exudates. NECK: No masses, no JVD. CHEST: No chest wall deformity. LUNGS: Equal air entry with no wheeze, rhonchi or dullness. Coarse crackles at posterior bases CVS: S1 and S2 normal with no audible mumurs, regular rhythm. ABDOMEN: No hepatosplenomegaly, normal bowel sounds, no guarding or rigidity. SPINE: No scoliosis or deformity SKIN: No rashes CENTRAL NERVOUS SYSTEM: No focal deficits, tone is normal in all 4 extremities. - Labs CBC & Chem 7: 02/13/17 05:52 02/13/17 05:52 Labs: Abnormal Lab Results - Last 24 Hours (Table) 02/12/17 02/12/17 02/13/17 Range/Units 16:32 20:42 05:52 Lymphocytes # 0.5 L (1.0-4.8) k/uL Sodium (137-145) mmol/L Chloride (98-107) mmol/L Carbon Dioxide (22-30) mmol/L BUN (7-17) mg/dL POC Glucose (mg/dL) 138 H 114 H (75-99) mg/dL 02/13/17 02/13/17 Range/Units 05:52 11:42 Lymphocytes # (1.0-4.8) k/uL Sodium 134 L (137-145) mmol/L Chloride 92 L (98-107) mmol/L Carbon Dioxide 38 H (22-30) mmol/L BUN 24 H (7-17) mg/dL POC Glucose (mg/dL) 142 H (75-99) mg/dL Microbiology - Last 24 Hours (Table) 02/11/17 08:00 Gram Stain - Final Sputum Sputum Culture - Final Sherri albicans 02/09/17 18:28 Blood Culture - Preliminary Blood No Growth after 72 hours Assessment and Plan Plan: Assessment and Plan Impression: 1 acute on chronic hypoxic respiratory failure secondary to severe and worsening pulmonary fibrosis/UIP, chronic obstructive pulmonary disease, and bronchiectasis. As well as history of radiation pneumonitis involving the left upper lobe. 2 severe underlying COPD 3 severe interstitial lung disease, UIP 4 bronchiectasis 5 radiation pneumonitis and strongly suspect underlying malignancy involving the left upper lobe 6 cannot rule out underlying pneumonitis and bacterial infection hence the patient will need to be empirically covered with antibiotics. 7 multiple comorbidities including underlying coronary artery disease, hyperlipidemia, history of GERD, history of benign essential hypertension, history of osteoarthritis. Plan: Continue current treatment with Zithromax antibiotics, DuoNeb nebulized treatments, oral steroids and pirfenedone. We'll discontinue Lasix as the patient is developing volume contraction alkalosis and becoming slightly prerenal. Clinically patient continues to improve. Overall long-term prognosis remains poor and guarded. We will continue to follow. I performed a history & physical examination of the patient and discussed their management with my nurse practitioner, Estefanía Colón. I reviewed the nurse practitioner's note and agree with the documented findings and plan of care.
[2017-02-13] MEDS ORDERED: METOCLOPRAMIDE 5 MG/ML 2 ML VIAL IVP PRN (12:29)
--- NOTE | 2017-02-13 13:22 | P.PN ---
Subjective 75-year-old female, patient of Dr. Rivero with a history of a well- established idiopathic pulmonary fibrosis on Esbriet,started on a new anti- fibrotic drug by Dr. 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 Patient presented to the emergency department at [facility] complaining of back pain between her shoulder blade area along with significant shortness of breath cough and wheezes and worsening symptoms compared to her baseline. Patient also developed to have fever, chills and mildly productive cough. She was out of breath and had an episode of gasping for past couple of days patient is at 2 L of oxygen at home is currently requiring 2.5 L. She does have some discomfort but it's related to her breathing but denies any chest pain. Patient denies any sick contact or recent travel. She is nauseous but denies any episode of vomiting, decreased appetite and generalized weakness. She has not noticed that her ankles are more swollen than before. Patient denies any exposure to TB, birds or bats CT was ordered in the ED to rule out pulmonary embolism which was negative. Patient does have a pleural mass but no significant vascular congestion or consolidation seen. 02/08: Patient states she is very tired today and not sleep well last night. She has ambulated to the bathroom abases herself due to shortness of breath with only a few steps. She is normally on home O2 at 2 L nasal cannula. By Dr. Randhawa. 02/09: Last evening, patient developed increasing shortness of breath and atrial fibrillation was transferred to the selective care unit. She was placed on heparin drip and Cardizem drip and subsequently converted to normal sinus rhythm. Patient is still requiring oxygen at 8 L. One dose of IV Lasix given. Repeat chest x-ray ordered that showed stable findings with bilateral upper lobe infiltrate and nodularity with findings suggestive of pulmonary fibrosis.. 02/10: Patient was evaluated today. She was noted to have some atrial fibrillation yesterday, she is currently maintaining sinus rhythm. She is consulted by cardiology, continue current dose of atenolol, and Eliquis 5 mg by mouth twice a day added. She denies any chest pain or palpitations. She continues to require 6L via nasal cannula and is maintaining an O2 saturation of 91%. Pulmonology is on consult. 02/11: Patient was noted to be sitting up in bed resting comfortably, in no acute distress. She reports breathing is a lot better and she feels well, although she was on 6 L nasal cannula, oxygen decreased to 5 L, O2 saturation 97 %. We'll continue to try to wean down oxygen today. ABG ordered, respiratory culture sent this morning. Vancomycin discontinued. She has not had any further episodes of atrial fibrillation, she remains in sinus rhythm. 02/12: Patient continues to have shortness of breath and is requiring more oxygen. She is currently on high flow O2 at 6 L and pulse ox 93%. Solu-Medrol changed to oral prednisone for tomorrow. Lasix IV increase to 40 mg daily. Await further recommendations from Dr. Michel. 02/13: Patient is currently on 5 L and discussed briefly with patient that she needs to be prepared for worsening pulmonary fibrosis and this may be her new normal and will need to increase her home O2 use. Sputum is positive for Sherri. Blood culture appears to be contamination. The patient will be transferred to the [facility] floor. Objective - Vital Signs Vital signs: Vital Signs Temp 97.6 F 02/13/17 04:00 Pulse 80 02/13/17 09:05 Resp 16 02/13/17 04:00 BP 175/79 02/13/17 04:00 Pulse Ox 97 02/13/17 04:00 Intake & Output 02/12/17 02/13/17 02/13/17 18:59 06:59 18:59 Intake Total 720 120 Output Total 800 Balance -80 120 Weight 77.2 kg Intake: Oral 720 120 Output: Urine 800 Other: Voiding Method Bedside Commode Toilet # Voids 3 - Exam General appearance: average body habitus, no acute distress - EENT Eyes: EOMI, PERRLA, no photophobia ENT: normal oropharynx Ears: bilateral: normal - Neck Carotids: bilateral: upstroke normal - Respiratory Respiratory: bilateral: rales, rhonchi, wheezing, negative: CTA, dullness, prolonged expiration - Cardiovascular Rhythm: regular Heart sounds: normal: S1, S2 Abnormal Heart Sounds: no systolic murmur, no diastolic murmur - Gastrointestinal General gastrointestinal: normal bowel sounds, soft, no tenderness - Integumentary Integumentary: no flushed, no jaundiced - Neurologic Neurologic: CNII-XII intact - Musculoskeletal Musculoskeletal: gait normal, generalized weakness, no strength equal bilaterally - Psychiatric Psychiatric: A&O x's 3, appropriate affect - Labs CBC & Chem 7: 02/13/17 05:52 02/13/17 05:52 Labs: Abnormal Lab Results - Last 24 Hours (Table) 02/12/17 02/12/17 02/12/17 Range/Units 11:43 16:32 20:42 Lymphocytes # (1.0-4.8) k/uL Sodium (137-145) mmol/L Chloride (98-107) mmol/L Carbon Dioxide (22-30) mmol/L BUN (7-17) mg/dL POC Glucose (mg/dL) 110 H 138 H 114 H (75-99) mg/dL 02/13/17 02/13/17 Range/Units 05:52 05:52 Lymphocytes # 0.5 L (1.0-4.8) k/uL Sodium 134 L (137-145) mmol/L Chloride 92 L (98-107) mmol/L Carbon Dioxide 38 H (22-30) mmol/L BUN 24 H (7-17) mg/dL POC Glucose (mg/dL) (75-99) mg/dL Microbiology - Last 24 Hours (Table) 02/11/17 08:00 Gram Stain - Final Sputum Sputum Culture - Final Sherri albicans 02/09/17 18:28 Blood Culture - Preliminary Blood No Growth after 72 hours 02/07/17 08:58 Blood Culture - Final Blood Assessment and Plan Plan: 1 acute on chronic hypoxic respiratory failure: Combination of pulmonary fibrosis, infection, COPD exacerbation and possible metastasis. 2 COPD exacerbation: With patient's current symptoms patient will be on Solu- Medrol to prednisone, DuoNeb, Pulmicort and will consult pulmonary. 3 advance pulmonary fibrosis: Long-standing has been seen pulmonary for long time continue current pulmonary medication at this point. 4 febrile illness likley secondary to severe bronchitis - continue Rocephin and azithromycin 5 CAD: No chest pain or angina patient remain on Tenormin and losartan resume medication. 6 hyperlipidemia: Not on any medication currently. 7 arrhythmia: Has been doing very well on atenolol. 8 severe GERD/GI prophylaxis: Patient will be on Nexium 40 mg daily. 9 new onset atrial fibrillation, paroxysmal. Patient has been on IV Cardizem and heparin drips. Cardiology is following. Continue atenolol 50 mg twice daily. DVT prophylaxis: Patient will be on heparin subcutaneous. CODE STATUS: Full code. Discharge plan: Patient plans to return home. Impression and plan of care have been directed as dictated by the signing physician. Ratna Arredondo nurse practitioner acting as scribe for signing physician.
[2017-02-13 13:59] VITALS: BMI 29.2
[2017-02-13] MEDS: AZITHROMYCIN 500 MG TAB PO SCH (15:13)
[2017-02-13 18:03] LABS: Glucose,Whole Blood 175 mg/dL (75-99)
[2017-02-13 21:17] LABS: Glucose,Whole Blood 78 mg/dL (75-99)
[2017-02-14 02:36] LABS: Glucose,Whole Blood 99 mg/dL (75-99)
[2017-02-14 07:17] LABS: Glucose,Whole Blood 93 mg/dL (75-99)
[2017-02-14] MEDS: INSULIN LISPRO (humaLOG) 300 UNIT/3 ML VIAL SQ SCH (07:17)
[2017-02-14 07:21] LABS: Basophils % (A) 0 %; CH 32.8; Eosinophils # (A) 0.2 k/uL (0-0.7); Eosinophils % (A) 2 %; HCT 40.2 % (34.0-46.0); HDW 2.71; HGB 13.1 gm/dL (11.4-16.0); Luc # (Auto) 0.07; Luc % (Auto) 1; Lymphocytes # (A) 0.3 k/uL (1.0-4.8); Lymphocytes % (A) 5 %; MCH 32.4 pg (25.0-35.0); MCHC 32.5 g/dL (31.0-37.0); MCV 99.9 fL (80.0-100.0); Mean Platelet Volume 6.8; Monocytes # (A) 0.4 k/uL (0-1.0); Monocytes % (A) 5 %; Neutrophils # (A) 6.7 k/uL (1.3-7.7); Neutrophils % (A) 87 %; RBC 4.02 m/uL (3.80-5.40); RDW 12.8 % (11.5-15.5); WBC 7.7 k/uL (3.8-10.6); WBC (Perox) 8.24
[2017-02-14] MEDS: LEVALBUTEROL NEB 1.25 MG/3 ML AMP INHALATION SCH ×3 (07:26→19:29)
[2017-02-14 07:33] LABS: Anion Gap 6 mmol/L; Blood Urea Nitrogen 21 mg/dL (7-17); Calcium 8.7 mg/dL (8.4-10.2); Carbon Dioxide 32 mmol/L (22-30); Chloride 93 mmol/L (98-107); Glucose 84 mg/dL (74-99); Non-African American GFR(MDRD) >60 (>60 ml/min/1.73 sqM); Potassium 4.1 mmol/L (3.5-5.1); Sodium 131 mmol/L (137-145)
[2017-02-14] MEDS: PIRFENIDONE 267 MG PO SCH ×3 (08:32→17:11)
[2017-02-14] MEDS: ATENOLOL 50 MG TAB PO SCH ×2 (08:33→21:40)
[2017-02-14] MEDS: APIXABAN 5 MG TAB PO SCH ×2 (08:33→21:40)
[2017-02-14] MEDS: predniSONE 20 MG TAB PO SCH (08:34)
[2017-02-14] MEDS: LOSARTAN 50 MG TAB PO SCH (08:34)
[2017-02-14] MEDS: HYDROcodone/APAP 5-325MG 1 EACH TAB PO PRN (09:01)
--- NOTE | 2017-02-14 11:55 | P.PN ---
Subjective Progress Note Date: 02/14/17 75-year-old female, patient of Dr. Rivero with a history of a well- established idiopathic pulmonary fibrosis on Esbriet,started on a new anti- fibrotic drug by Dr. 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 Patient presented to the emergency department at [facility] complaining of back pain between her shoulder blade area along with significant shortness of breath cough and wheezes and worsening symptoms compared to her baseline. Patient also developed to have fever, chills and mildly productive cough. She was out of breath and had an episode of gasping for past couple of days patient is at 2 L of oxygen at home is currently requiring 2.5 L. She does have some discomfort but it's related to her breathing but denies any chest pain. Patient denies any sick contact or recent travel. She is nauseous but denies any episode of vomiting, decreased appetite and generalized weakness. She has not noticed that her ankles are more swollen than before. Patient denies any exposure to TB, birds or bats CT was ordered in the ED to rule out pulmonary embolism which was negative. Patient does have a pleural mass but no significant vascular congestion or consolidation seen. 02/08: Patient states she is very tired today and not sleep well last night. She has ambulated to the bathroom abases herself due to shortness of breath with only a few steps. She is normally on home O2 at 2 L nasal cannula. By Dr. Randhawa. 02/09: Last evening, patient developed increasing shortness of breath and atrial fibrillation was transferred to the selective care unit. She was placed on heparin drip and Cardizem drip and subsequently converted to normal sinus rhythm. Patient is still requiring oxygen at 8 L. One dose of IV Lasix given. Repeat chest x-ray ordered that showed stable findings with bilateral upper lobe infiltrate and nodularity with findings suggestive of pulmonary fibrosis.. 02/10: Patient was evaluated today. She was noted to have some atrial fibrillation yesterday, she is currently maintaining sinus rhythm. She is consulted by cardiology, continue current dose of atenolol, and Eliquis 5 mg by mouth twice a day added. She denies any chest pain or palpitations. She continues to require 6L via nasal cannula and is maintaining an O2 saturation of 91%. Pulmonology is on consult. 02/11: Patient was noted to be sitting up in bed resting comfortably, in no acute distress. She reports breathing is a lot better and she feels well, although she was on 6 L nasal cannula, oxygen decreased to 5 L, O2 saturation 97 %. We'll continue to try to wean down oxygen today. ABG ordered, respiratory culture sent this morning. Vancomycin discontinued. She has not had any further episodes of atrial fibrillation, she remains in sinus rhythm. 02/12: Patient continues to have shortness of breath and is requiring more oxygen. She is currently on high flow O2 at 6 L and pulse ox 93%. Solu-Medrol changed to oral prednisone for tomorrow. Lasix IV increase to 40 mg daily. Await further recommendations from Dr. Michel. 02/13: Patient is currently on 5 L and discussed briefly with patient that she needs to be prepared for worsening pulmonary fibrosis and this may be her new normal and will need to increase her home O2 use. Sputum is positive for Sherri. Blood culture appears to be contamination. The patient will be transferred to the [facility] floor. 02/14: Patient states that her blood sugar dropped during the night and she had to have gram crackers with peanut butter which caused heartburn and this causes her to have increased anxiety and shortness of breath. Protonix has been added. She also states she has decreased appetite. Patient states that she is a little more short of breath but is talking today in full sentences and appears to be comfortable. She denies having any dizziness but does have weakness. Pulse ox is currently 93% on 5 L. Prednisone decreased to 30 mg daily. She is complaining of soreness in the shoulder blade area from laying in bed. PEDRO powers also added. Physical therapy and occupational therapy recommended home with homecare. Objective - Vital Signs Vital signs: Vital Signs Temp 98.6 F 02/14/17 07:00 Pulse 74 02/14/17 11:44 Resp 16 02/14/17 11:27 BP 119/66 02/14/17 07:00 Pulse Ox 93 L 02/14/17 07:00 Intake & Output 02/13/17 02/14/17 02/14/17 18:59 06:59 18:59 Intake Total 150 200 Balance 150 200 Weight 77.2 kg Intake: IV 30 Invasive Line 3 30 Oral 120 200 Other: Voiding Method Bedside Commode Bedside Commode Bedside Commode # Voids 2 2 # Bowel Movements 1 1 - Exam General appearance: average body habitus, no acute distress - EENT Eyes: EOMI, PERRLA, no photophobia ENT: normal oropharynx Ears: bilateral: normal - Neck Carotids: bilateral: upstroke normal - Respiratory Respiratory: bilateral: rales, rhonchi, wheezing, negative: CTA, dullness, prolonged expiration - Cardiovascular Rhythm: regular Heart sounds: normal: S1, S2 Abnormal Heart Sounds: no systolic murmur, no diastolic murmur - Gastrointestinal General gastrointestinal: normal bowel sounds, soft, no tenderness - Integumentary Integumentary: no flushed, no jaundiced - Neurologic Neurologic: CNII-XII intact - Musculoskeletal Musculoskeletal: gait normal, generalized weakness, no strength equal bilaterally - Psychiatric Psychiatric: A&O x's 3, appropriate affect - Labs CBC & Chem 7: 02/14/17 06:47 02/14/17 06:47 Labs: Abnormal Lab Results - Last 24 Hours (Table) 02/13/17 02/14/17 02/14/17 Range/Units 17:42 06:47 06:47 Lymphocytes # 0.3 L (1.0-4.8) k/uL Sodium 131 L (137-145) mmol/L Chloride 93 L (98-107) mmol/L Carbon Dioxide 32 H (22-30) mmol/L BUN 21 H (7-17) mg/dL POC Glucose (mg/dL) 175 H (75-99) mg/dL Microbiology - Last 24 Hours (Table) 02/09/17 18:28 Blood Culture - Preliminary Blood No Growth after 96 hours 02/11/17 08:00 Gram Stain - Final Sputum Sputum Culture - Final Sherri albicans Assessment and Plan Plan: 1 acute on chronic hypoxic respiratory failure: Combination of pulmonary fibrosis, infection, COPD exacerbation and possible metastasis. 2 COPD exacerbation: With patient's current symptoms patient will be on Solu- Medrol to prednisone, DuoNeb, Pulmicort and will consult pulmonary. 3 advance pulmonary fibrosis: Long-standing has been seen pulmonary for long time continue current pulmonary medication at this point. 4 febrile illness likley secondary to severe bronchitis - continue Rocephin and azithromycin 5 CAD: No chest pain or angina patient remain on Tenormin and losartan resume medication. 6 hyperlipidemia: Not on any medication currently. 7 arrhythmia: Has been doing very well on atenolol. 8 severe GERD/GI prophylaxis: Patient will be on Nexium 40 mg daily. 9 new onset atrial fibrillation, paroxysmal. Patient has been on IV Cardizem and heparin drips. Cardiology is following. Continue atenolol 50 mg twice daily. DVT prophylaxis: Patient will be on heparin subcutaneous. CODE STATUS: Full code. Discharge plan: Patient plans to return home. Impression and plan of care have been directed as dictated by the signing physician. Ratna Arredondo nurse practitioner acting as scribe for signing physician.
--- NOTE | 2017-02-14 12:05 | P.PN ---
Subjective Progress Note Date: 02/14/17 Principal diagnosis: dyspnea, pneumonia, pulmonary fibrosis This is a 76-year-old female who is quite familiar to my service. Patient is known to have history of severe pulmonary fibrosis, felt to be usual interstitial pneumonitis and she has been placed on esbriet. In addition to her pulmonary fibrosis, patient is also known to have history of severe COPD, and history of a left upper lobe mass were and it initial diagnosis could never be established, but it was felt to be malignant. Medication and CT-guided needle biopsies failed to establish the diagnosis, patient was even referred to [facility] surgical staff, and it was felt that the patient is not a good surgical candidate, it was recommended that we treat the mass as malignant. Patient was given radiation therapy and she developed some component of radiation pneumonitis in the left upper lobe. Patient developed significant pain and worsening shortness of breath however she responded well to a maintenance dose of prednisone. She was also placed on auction 4 chronic hypoxic respiratory failure and kept on multiple bronchodilators. Patient was actually scheduled to have a repeat CT of the chest to follow-up on her interstitial lung disease and on her left upper lobe mass in early February. Patient presented today with mostly increased shortness of breath for the last few days. Dyspnea with any exertion, some productive cough with yellow phlegm, low-grade fever, no chills, no hemoptysis, and no chest pain. Patient felt that her pulmonary condition has been going downhill. Hence the patient came into the ER. CT angiogram of the chest showed no evidence of pulmonary embolism , it did show her usual pulmonary fibrosis, and the areas of nodularity in the left upper lobe unchanged compared to previous CT of the chest. A new left upper lobe nodule noted 9.8 mm in the left upper lobe and there was pleural thickening. Patient was admitted, placed on antibiotics, bronchodilators, steroids, and I was asked to see her on consultation. Upon my evaluation, I reviewed the CT of the chest findings with the patient, and explained to her that there is no evidence of thromboembolic disease. But she does have severe chronic interstitial lung disease along with underlying emphysema and bronchiectasis. On 02/08/2017 the patient is seen in follow-up. She continues to experience significant respiratory distress even going to the bedside commode. She states it takes her a while to recover after those episodes.continues on 3 L oxygen per nasal cannula with oxygen saturation around 92-93%. On IV antibiotics in the form of Rocephin and Zithromax, systemic steroids Solu-Medrol 60 mg every 6 hours and DuoNeb nebulized treatments. She does state that occasionally she has heart palpitations with the nebulized treatments. No significant sputum production. Lung sounds are coarse and respiratory crackles over posterior basis. Good air entry noted. No wheezing. No rhonchi. Continues on Esbriet for history of UIP. no febrile episodes through the night.Blood culture shows no growth at 24 hours. Remains marginal in terms of her abilityto tolerate even limited activity. Patient was reevaluated today on 02/09/2017, feeling better today for the first time. Patient was given a dose of Lasix earlier, hence I will try a maintenance Lasix dose on a daily basis at 20 mg by mouth daily. Patient is complaining of shortness of breath, but improved compared to her admission status. Last night, patient developed intermittent episodes of atrial fibrillation hence she was placed on selective. Placed on heparin and Cardizem drip, converted to sinus rhythm. 1 Lasix dose was given, chest x-ray is basically about the same. Again it shows interstitial lung disease, the possibility of underlying infection/pneumonitis is not entirely ruled out. Even the possibility of underlying component of congestive heart failure is also not entirely ruled out. But considering the patient improved with Lasix, I will place on a maintenance dose of Lasix on a daily basis. Reevaluated today on 02/10/2017, continues to feel a bit better compared to how she felt a few days ago. Remains on antibiotics, steroids, bronchodilators, and diuretics. Her last chest x-ray was basically about the same, but clinically the patient stated that she was feeling better. CBC was reviewed and basic metabolic profile was also reviewed. They seem to be relatively normal. Reevaluated today on 02/11/2017, patient continues to improve, much improved compared to her baseline upon admission. Less shortness of breath, no cough, no wheezing, she is becoming more ambulatory and active. Patient is almost near her baseline before she was admitted. I believe her paroxysmal atrial fibrillation may have been a major factor for her clinical deterioration, and now that it is controlled, patient is feeling better. Presently in sinus rhythm. CBC is normal. Basic metabolic profile is normal. Meds were all reviewed, remains on Lasix 20 mg daily, I will switch her Solu-Medrol to oral prednisone today. On 02/12/2017 patient's oxygen requirement is down to 6 L per old nasal cannula. Continues to slowly improve, she continues to increase her activity and tolerated better. chest X-ray from 02/12/2017 has been reviewed and shows pulmonary fibrosis with subsegmental consolidation stable in appearance. Lung sounds are clear with fine respiratory crackles over left posterior base. She denies wheezing, congestion. She's been afebrile. 02/13/2017 patient continues to improve, she is less short of breath with activity, no cough, no wheezing. She is becoming more active. Her oxygen requirement is down to 5 L per high flow nasal cannula with oxygen saturations around 94%. Significant sputum production, no wheezing, no rhonchi. Lung sounds continue with coarse crackles on the left posterior base greater than the right. Med have been reviewed, patient continues on oral Zithromax and prednisone 40 mg daily. Microbiology results and reviewed sputum culture is positive for Sherri albicans which is likely colonized. Blood Culture positive for Staphylococcus epidermidis, which is likely a contaminated specimen. On 02/14/2017 patient has reevaluated and she continues to improve from pulmonary standpoint. Her oxygen remains at 5 L per high flow nasal cannula but he can be further weaned down as she maintains her oxygen saturations from 94-96%. She has been afebrile, denies chest congestion, wheezes, or worsening dyspnea. She has been up ambulating in the hallway with portable oxygen. She is tolerates activity better. She continues on oral Zithromax for antibiotic coverage and oral prednisone. Objective - Vital Signs Vital signs: Vital Signs Temp 98.6 F 02/14/17 07:00 Pulse 74 02/14/17 11:44 Resp 16 02/14/17 11:27 BP 119/66 02/14/17 07:00 Pulse Ox 93 L 02/14/17 07:00 Intake & Output 02/13/17 02/14/17 02/14/17 18:59 06:59 18:59 Intake Total 150 200 Balance 150 200 Weight 77.2 kg Intake: IV 30 Invasive Line 3 30 Oral 120 200 Other: Voiding Method Bedside Commode Bedside Commode Bedside Commode # Voids 2 2 # Bowel Movements 1 1 - Exam GENERAL EXAM: Alert, active, comfortable in no apparent distress. HEAD: Normocephalic. EYES: Normal reaction of pupils, equal size. NOSE: Clear with pink turbinates. THROAT: No erythema or exudates. NECK: No masses, no JVD. CHEST: No chest wall deformity. LUNGS: Equal air entry with no wheeze, rhonchi or dullness. Coarse crackles at posterior bases CVS: S1 and S2 normal with no audible mumurs, regular rhythm. ABDOMEN: No hepatosplenomegaly, normal bowel sounds, no guarding or rigidity. SPINE: No scoliosis or deformity SKIN: No rashes CENTRAL NERVOUS SYSTEM: No focal deficits, tone is normal in all 4 extremities. - Labs CBC & Chem 7: 02/14/17 06:47 02/14/17 06:47 Labs: Abnormal Lab Results - Last 24 Hours (Table) 02/13/17 02/14/17 02/14/17 Range/Units 17:42 06:47 06:47 Lymphocytes # 0.3 L (1.0-4.8) k/uL Sodium 131 L (137-145) mmol/L Chloride 93 L (98-107) mmol/L Carbon Dioxide 32 H (22-30) mmol/L BUN 21 H (7-17) mg/dL POC Glucose (mg/dL) 175 H (75-99) mg/dL Microbiology - Last 24 Hours (Table) 02/09/17 18:28 Blood Culture - Preliminary Blood No Growth after 96 hours 02/11/17 08:00 Gram Stain - Final Sputum Sputum Culture - Final Sherri albicans Assessment and Plan Plan: Assessment and Plan Impression: 1 acute on chronic hypoxic respiratory failure secondary to severe and worsening pulmonary fibrosis/UIP, chronic obstructive pulmonary disease, and bronchiectasis. As well as history of radiation pneumonitis involving the left upper lobe. 2 severe underlying COPD 3 severe interstitial lung disease, UIP 4 bronchiectasis 5 radiation pneumonitis and strongly suspect underlying malignancy involving the left upper lobe 6 cannot rule out underlying pneumonitis and bacterial infection hence the patient will need to be empirically covered with antibiotics. 7 multiple comorbidities including underlying coronary artery disease, hyperlipidemia, history of GERD, history of benign essential hypertension, history of osteoarthritis. Plan: Continue current treatment with Zithromax antibiotics, DuoNeb nebulized treatments, oral steroids and pirfenedone. Clinically patient continues to improve. Continue weaning oxygen. Encourage pulmonary toileting. Overall long -term prognosis remains poor and guarded. We will continue to follow. I performed a history & physical examination of the patient and discussed their management with my nurse practitioner, Estefanía Colón. I reviewed the nurse practitioner's note and agree with the documented findings and plan of care.
[2017-02-14] MEDS: LACTOBACILLUS ACIDOPH & BULGAR 1 EACH PACKET PO SCH (12:30)
[2017-02-14] MEDS: PANTOPRAZOLE 40 MG TABLET PO SCH (12:30)
[2017-02-14 13:06] LABS: Glucose,Whole Blood 128 mg/dL (75-99)
[2017-02-14] MEDS: AZITHROMYCIN 500 MG TAB PO SCH (17:11)
[2017-02-14 18:04] LABS: Glucose,Whole Blood 129 mg/dL (75-99)
[2017-02-14 20:23] LABS: Glucose,Whole Blood 172 mg/dL (75-99)
[2017-02-15 07:02] LABS: Glucose,Whole Blood 89 mg/dL (75-99)
[2017-02-15] MEDS: LEVALBUTEROL NEB 1.25 MG/3 ML AMP INHALATION SCH ×3 (07:03→18:46)
[2017-02-15 07:57] LABS: Anion Gap 6 mmol/L; Blood Urea Nitrogen 19 mg/dL (7-17); Carbon Dioxide 35 mmol/L (22-30); Chloride 94 mmol/L (98-107); Glucose 83 mg/dL (74-99); Non-African American GFR(MDRD) >60 (>60 ml/min/1.73 sqM); Potassium 4.5 mmol/L (3.5-5.1); Sodium 135 mmol/L (137-145)
[2017-02-15] MEDS: ATENOLOL 50 MG TAB PO SCH ×2 (08:25→21:38)
[2017-02-15] MEDS: PANTOPRAZOLE 40 MG TABLET PO SCH (08:25)
[2017-02-15] MEDS: LOSARTAN 50 MG TAB PO SCH (08:25)
[2017-02-15] MEDS: APIXABAN 5 MG TAB PO SCH ×2 (08:25→21:40)
[2017-02-15] MEDS: PIRFENIDONE 267 MG PO SCH ×3 (08:26→17:54)
[2017-02-15] MEDS ORDERED: predniSONE 10 MG TAB PO SCH (09:00)
[2017-02-15] MEDS ORDERED: FUROSEMIDE 10 MG/ML 4 ML VIAL IV STA (09:47)
--- NOTE | 2017-02-15 11:21 | P.PN ---
Subjective Progress Note Date: 02/15/17 Principal diagnosis: dyspnea, pneumonia, pulmonary fibrosis This is a 76-year-old female who is quite familiar to my service. Patient is known to have history of severe pulmonary fibrosis, felt to be usual interstitial pneumonitis and she has been placed on esbriet. In addition to her pulmonary fibrosis, patient is also known to have history of severe COPD, and history of a left upper lobe mass were and it initial diagnosis could never be established, but it was felt to be malignant. Medication and CT-guided needle biopsies failed to establish the diagnosis, patient was even referred to [facility] surgical staff, and it was felt that the patient is not a good surgical candidate, it was recommended that we treat the mass as malignant. Patient was given radiation therapy and she developed some component of radiation pneumonitis in the left upper lobe. Patient developed significant pain and worsening shortness of breath however she responded well to a maintenance dose of prednisone. She was also placed on auction 4 chronic hypoxic respiratory failure and kept on multiple bronchodilators. Patient was actually scheduled to have a repeat CT of the chest to follow-up on her interstitial lung disease and on her left upper lobe mass in early February. Patient presented today with mostly increased shortness of breath for the last few days. Dyspnea with any exertion, some productive cough with yellow phlegm, low-grade fever, no chills, no hemoptysis, and no chest pain. Patient felt that her pulmonary condition has been going downhill. Hence the patient came into the ER. CT angiogram of the chest showed no evidence of pulmonary embolism , it did show her usual pulmonary fibrosis, and the areas of nodularity in the left upper lobe unchanged compared to previous CT of the chest. A new left upper lobe nodule noted 9.8 mm in the left upper lobe and there was pleural thickening. Patient was admitted, placed on antibiotics, bronchodilators, steroids, and I was asked to see her on consultation. Upon my evaluation, I reviewed the CT of the chest findings with the patient, and explained to her that there is no evidence of thromboembolic disease. But she does have severe chronic interstitial lung disease along with underlying emphysema and bronchiectasis. On 02/08/2017 the patient is seen in follow-up. She continues to experience significant respiratory distress even going to the bedside commode. She states it takes her a while to recover after those episodes.continues on 3 L oxygen per nasal cannula with oxygen saturation around 92-93%. On IV antibiotics in the form of Rocephin and Zithromax, systemic steroids Solu-Medrol 60 mg every 6 hours and DuoNeb nebulized treatments. She does state that occasionally she has heart palpitations with the nebulized treatments. No significant sputum production. Lung sounds are coarse and respiratory crackles over posterior basis. Good air entry noted. No wheezing. No rhonchi. Continues on Esbriet for history of UIP. no febrile episodes through the night.Blood culture shows no growth at 24 hours. Remains marginal in terms of her abilityto tolerate even limited activity. Patient was reevaluated today on 02/09/2017, feeling better today for the first time. Patient was given a dose of Lasix earlier, hence I will try a maintenance Lasix dose on a daily basis at 20 mg by mouth daily. Patient is complaining of shortness of breath, but improved compared to her admission status. Last night, patient developed intermittent episodes of atrial fibrillation hence she was placed on selective. Placed on heparin and Cardizem drip, converted to sinus rhythm. 1 Lasix dose was given, chest x-ray is basically about the same. Again it shows interstitial lung disease, the possibility of underlying infection/pneumonitis is not entirely ruled out. Even the possibility of underlying component of congestive heart failure is also not entirely ruled out. But considering the patient improved with Lasix, I will place on a maintenance dose of Lasix on a daily basis. Reevaluated today on 02/10/2017, continues to feel a bit better compared to how she felt a few days ago. Remains on antibiotics, steroids, bronchodilators, and diuretics. Her last chest x-ray was basically about the same, but clinically the patient stated that she was feeling better. CBC was reviewed and basic metabolic profile was also reviewed. They seem to be relatively normal. Reevaluated today on 02/11/2017, patient continues to improve, much improved compared to her baseline upon admission. Less shortness of breath, no cough, no wheezing, she is becoming more ambulatory and active. Patient is almost near her baseline before she was admitted. I believe her paroxysmal atrial fibrillation may have been a major factor for her clinical deterioration, and now that it is controlled, patient is feeling better. Presently in sinus rhythm. CBC is normal. Basic metabolic profile is normal. Meds were all reviewed, remains on Lasix 20 mg daily, I will switch her Solu-Medrol to oral prednisone today. On 02/12/2017 patient's oxygen requirement is down to 6 L per old nasal cannula. Continues to slowly improve, she continues to increase her activity and tolerated better. chest X-ray from 02/12/2017 has been reviewed and shows pulmonary fibrosis with subsegmental consolidation stable in appearance. Lung sounds are clear with fine respiratory crackles over left posterior base. She denies wheezing, congestion. She's been afebrile. 02/13/2017 patient continues to improve, she is less short of breath with activity, no cough, no wheezing. She is becoming more active. Her oxygen requirement is down to 5 L per high flow nasal cannula with oxygen saturations around 94%. Significant sputum production, no wheezing, no rhonchi. Lung sounds continue with coarse crackles on the left posterior base greater than the right. Med have been reviewed, patient continues on oral Zithromax and prednisone 40 mg daily. Microbiology results and reviewed sputum culture is positive for Sherri albicans which is likely colonized. Blood Culture positive for Staphylococcus epidermidis, which is likely a contaminated specimen. On 02/14/2017 patient has reevaluated and she continues to improve from pulmonary standpoint. Her oxygen remains at 5 L per high flow nasal cannula but he can be further weaned down as she maintains her oxygen saturations from 94-96%. She has been afebrile, denies chest congestion, wheezes, or worsening dyspnea. She has been up ambulating in the hallway with portable oxygen. She is tolerates activity better. She continues on oral Zithromax for antibiotic coverage and oral prednisone. On 02/15/2017 patient is seen in follow-up. She is resting in bed comfortably she denies chest congestion, wheezes, fevers or chills. Her oxygen is down to 4 L per high flow nasal cannula, she has been ambulating with a portable tank in the [place]. She does desaturate to 81% while ambulating on 5 L. She has been evaluated by physical therapy and was told that she does not qualify for subacute rehab placement. The plan is to discharge her home, continue weaning oxygen follow-up appointment has been set up with Dr. Randhawa in 1 week. Overall she states she has significantly improved, she is able to tolerate activity a lot better. Objective - Vital Signs Vital signs: Vital Signs Temp 98.3 F 02/15/17 07:00 Pulse 69 02/15/17 08:00 Resp 18 02/15/17 08:00 BP 131/69 02/15/17 07:00 Pulse Ox 94 L 02/15/17 07:00 Intake & Output 02/14/17 02/15/17 02/15/17 18:59 06:59 18:59 Intake Total 630 500 Output Total 250 Balance 630 500 -250 Weight 77.2 kg 77.2 kg Intake: Oral 630 500 Output: Urine 250 Other: Voiding Method Bedside Commode Bedside Commode Bedside Commode # Voids 1 1 # Bowel Movements 1 1 - Exam GENERAL EXAM: Alert, active, comfortable in no apparent distress. HEAD: Normocephalic. EYES: Normal reaction of pupils, equal size. NOSE: Clear with pink turbinates. THROAT: No erythema or exudates. NECK: No masses, no JVD. CHEST: No chest wall deformity. LUNGS: Equal air entry with no wheeze, rhonchi or dullness. Coarse crackles at posterior bases CVS: S1 and S2 normal with no audible mumurs, regular rhythm. ABDOMEN: No hepatosplenomegaly, normal bowel sounds, no guarding or rigidity. SPINE: No scoliosis or deformity SKIN: No rashes CENTRAL NERVOUS SYSTEM: No focal deficits, tone is normal in all 4 extremities. - Labs CBC & Chem 7: 02/14/17 06:47 02/15/17 06:59 Labs: Abnormal Lab Results - Last 24 Hours (Table) 02/14/17 02/14/17 02/14/17 Range/Units 13:04 17:34 20:16 Sodium (137-145) mmol/L Chloride (98-107) mmol/L Carbon Dioxide (22-30) mmol/L BUN (7-17) mg/dL POC Glucose (mg/dL) 128 H 129 H 172 H (75-99) mg/dL 02/15/17 Range/Units 06:59 Sodium 135 L (137-145) mmol/L Chloride 94 L (98-107) mmol/L Carbon Dioxide 35 H (22-30) mmol/L BUN 19 H (7-17) mg/dL POC Glucose (mg/dL) (75-99) mg/dL Microbiology - Last 24 Hours (Table) 09/29/17 18:28 Blood Culture - Preliminary Blood No Growth after 120 hours Assessment and Plan Plan: Assessment and Plan Impression: 1 acute on chronic hypoxic respiratory failure secondary to severe and worsening pulmonary fibrosis/UIP, chronic obstructive pulmonary disease, and bronchiectasis. As well as history of radiation pneumonitis involving the left upper lobe. 2 severe underlying COPD 3 severe interstitial lung disease, UIP 4 bronchiectasis 5 radiation pneumonitis and strongly suspect underlying malignancy involving the left upper lobe 6 cannot rule out underlying pneumonitis and bacterial infection hence the patient will need to be empirically covered with antibiotics. 7 multiple comorbidities including underlying coronary artery disease, hyperlipidemia, history of GERD, history of benign essential hypertension, history of osteoarthritis. Plan: We will stop the Zithromax, microbiology results have been reviewed. DuoNeb nebulized treatments, oral steroids and pirfenedone. Clinically patient continues to improve. Continue weaning oxygen. Encourage pulmonary toileting. Patient can be discharged home. Follow-up with Dr. Randhawa in 1 week. Overall long-term prognosis remains poor and guarded. We will continue to follow. I performed a history & physical examination of the patient and discussed their management with my nurse practitioner, Estefanía Colón. I reviewed the nurse practitioner's note and agree with the documented findings and plan of care.
[2017-02-15 12:12] LABS: Glucose,Whole Blood 123 mg/dL (75-99)
[2017-02-15] MEDS: LACTOBACILLUS ACIDOPH & BULGAR 1 EACH PACKET PO SCH (12:39)
[2017-02-15] MEDS: NYSTATIN 100,000 UNIT/ML SUSP 500,000 UNIT/5 ML CUP PO SCH ×3 (12:39→21:40)
--- NOTE | 2017-02-15 14:54 | P.PN ---
Subjective Progress Note Date: 02/15/17 75-year-old female, patient of Dr. Rivero with a history of a well- established idiopathic pulmonary fibrosis on Esbriet,started on a new anti- fibrotic drug by Dr. 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 Patient presented to the emergency department at [facility] complaining of back pain between her shoulder blade area along with significant shortness of breath cough and wheezes and worsening symptoms compared to her baseline. Patient also developed to have fever, chills and mildly productive cough. She was out of breath and had an episode of gasping for past couple of days patient is at 2 L of oxygen at home is currently requiring 2.5 L. She does have some discomfort but it's related to her breathing but denies any chest pain. Patient denies any sick contact or recent travel. She is nauseous but denies any episode of vomiting, decreased appetite and generalized weakness. She has not noticed that her ankles are more swollen than before. Patient denies any exposure to TB, birds or bats CT was ordered in the ED to rule out pulmonary embolism which was negative. Patient does have a pleural mass but no significant vascular congestion or consolidation seen. 02/08: Patient states she is very tired today and not sleep well last night. She has ambulated to the bathroom abases herself due to shortness of breath with only a few steps. She is normally on home O2 at 2 L nasal cannula. By Dr. Randhawa. 02/09: Last evening, patient developed increasing shortness of breath and atrial fibrillation was transferred to the selective care unit. She was placed on heparin drip and Cardizem drip and subsequently converted to normal sinus rhythm. Patient is still requiring oxygen at 8 L. One dose of IV Lasix given. Repeat chest x-ray ordered that showed stable findings with bilateral upper lobe infiltrate and nodularity with findings suggestive of pulmonary fibrosis.. 02/10: Patient was evaluated today. She was noted to have some atrial fibrillation yesterday, she is currently maintaining sinus rhythm. She is consulted by cardiology, continue current dose of atenolol, and Eliquis 5 mg by mouth twice a day added. She denies any chest pain or palpitations. She continues to require 6L via nasal cannula and is maintaining an O2 saturation of 91%. Pulmonology is on consult. 02/11: Patient was noted to be sitting up in bed resting comfortably, in no acute distress. She reports breathing is a lot better and she feels well, although she was on 6 L nasal cannula, oxygen decreased to 5 L, O2 saturation 97 %. We'll continue to try to wean down oxygen today. ABG ordered, respiratory culture sent this morning. Vancomycin discontinued. She has not had any further episodes of atrial fibrillation, she remains in sinus rhythm. 02/12: Patient continues to have shortness of breath and is requiring more oxygen. She is currently on high flow O2 at 6 L and pulse ox 93%. Solu-Medrol changed to oral prednisone for tomorrow. Lasix IV increase to 40 mg daily. Await further recommendations from Dr. Michel. 02/13: Patient is currently on 5 L and discussed briefly with patient that she needs to be prepared for worsening pulmonary fibrosis and this may be her new normal and will need to increase her home O2 use. Sputum is positive for Sherri. Blood culture appears to be contamination. The patient will be transferred to the [facility] floor. 02/14: Patient states that her blood sugar dropped during the night and she had to have gram crackers with peanut butter which caused heartburn and this causes her to have increased anxiety and shortness of breath. Protonix has been added. She also states she has decreased appetite. Patient states that she is a little more short of breath but is talking today in full sentences and appears to be comfortable. She denies having any dizziness but does have weakness. Pulse ox is currently 93% on 5 L. Prednisone decreased to 30 mg daily. She is complaining of soreness in the shoulder blade area from laying in bed. PEDRO powers also added. Physical therapy and occupational therapy recommended home with homecare. 02/15: Patient has been seen by Dr. Mac this morning cleared for discharge. Prednisone will be decreased to 20 mg daily and one dose of Lasix will be given this morning IV. Nursing to try and wean her down to 3 L nasal cannula. Awaiting insurance authorization for possible subacute rehab. Patient will be ready for discharge tomorrow. Objective - Vital Signs Vital signs: Vital Signs Temp 98.3 F 02/15/17 07:00 Pulse 72 02/15/17 07:14 Resp 18 02/15/17 07:00 BP 131/69 02/15/17 07:00 Pulse Ox 94 L 02/15/17 07:00 Intake & Output 02/14/17 02/15/17 02/15/17 18:59 06:59 18:59 Intake Total 630 500 Balance 630 500 Weight 77.2 kg 77.2 kg Intake: Oral 630 500 Other: Voiding Method Bedside Commode Bedside Commode # Voids 1 # Bowel Movements 1 - Exam General appearance: average body habitus, no acute distress - EENT Eyes: EOMI, PERRLA, no photophobia ENT: normal oropharynx Ears: bilateral: normal - Neck Carotids: bilateral: upstroke normal - Respiratory Respiratory: bilateral: rales, rhonchi, wheezing, negative: CTA, dullness, prolonged expiration - Cardiovascular Rhythm: regular Heart sounds: normal: S1, S2 Abnormal Heart Sounds: no systolic murmur, no diastolic murmur - Gastrointestinal General gastrointestinal: normal bowel sounds, soft, no tenderness - Integumentary Integumentary: no flushed, no jaundiced - Neurologic Neurologic: CNII-XII intact - Musculoskeletal Musculoskeletal: gait normal, generalized weakness, no strength equal bilaterally - Psychiatric Psychiatric: A&O x's 3, appropriate affect - Labs CBC & Chem 7: 02/14/17 06:47 02/15/17 06:59 Labs: Abnormal Lab Results - Last 24 Hours (Table) 02/14/17 02/14/17 02/14/17 Range/Units 13:04 17:34 20:16 Sodium (137-145) mmol/L Chloride (98-107) mmol/L Carbon Dioxide (22-30) mmol/L BUN (7-17) mg/dL POC Glucose (mg/dL) 128 H 129 H 172 H (75-99) mg/dL 02/15/17 Range/Units 06:59 Sodium 135 L (137-145) mmol/L Chloride 94 L (98-107) mmol/L Carbon Dioxide 35 H (22-30) mmol/L BUN 19 H (7-17) mg/dL POC Glucose (mg/dL) (75-99) mg/dL Microbiology - Last 24 Hours (Table) 02/09/17 18:28 Blood Culture - Preliminary Blood No Growth after 120 hours Assessment and Plan Plan: 1 acute on chronic hypoxic respiratory failure: Combination of pulmonary fibrosis, infection, COPD exacerbation and possible metastasis. 2 COPD exacerbation: With patient's current symptoms patient will be on Solu- Medrol to prednisone, DuoNeb, Pulmicort and will consult pulmonary. 3 advance pulmonary fibrosis: Long-standing has been seen pulmonary for long time continue current pulmonary medication at this point. 4 febrile illness likley secondary to severe bronchitis - continue Rocephin and azithromycin 5 CAD: No chest pain or angina patient remain on Tenormin and losartan resume medication. 6 hyperlipidemia: Not on any medication currently. 7 arrhythmia: Has been doing very well on atenolol. 8 severe GERD/GI prophylaxis: Patient will be on Nexium 40 mg daily. 9 new onset atrial fibrillation, paroxysmal. Patient has been on IV Cardizem and heparin drips. Cardiology is following. Continue atenolol 50 mg twice daily. DVT prophylaxis: Patient will be on heparin subcutaneous. CODE STATUS: Full code. Discharge plan: [facility] under the care of Dr. Ruiz. Impression and plan of care have been directed as dictated by the signing physician. Ratna Arredondo nurse practitioner acting as scribe for signing physician.
[2017-02-15 16:14] LABS: Glucose,Whole Blood 164 mg/dL (75-99)
[2017-02-15] MEDS: AZITHROMYCIN 500 MG TAB PO SCH (17:54)
[2017-02-15 20:28] LABS: Glucose,Whole Blood 155 mg/dL (75-99)
[2017-02-15] MEDS: HYDROcodone/APAP 5-325MG 1 EACH TAB PO PRN (21:39)
[2017-02-16 07:41] LABS: Glucose,Whole Blood 96 mg/dL (75-99)
[2017-02-16] MEDS: ATENOLOL 50 MG TAB PO SCH (08:01)
[2017-02-16] MEDS: LOSARTAN 50 MG TAB PO SCH (08:01)
[2017-02-16] MEDS: predniSONE 20 MG TAB PO SCH (08:01)
[2017-02-16] MEDS: APIXABAN 5 MG TAB PO SCH ×2 (08:01→21:29)
[2017-02-16] MEDS: NYSTATIN 100,000 UNIT/ML SUSP 500,000 UNIT/5 ML CUP PO SCH ×4 (08:01→21:30)
[2017-02-16] MEDS: PANTOPRAZOLE 40 MG TABLET PO SCH (08:01)
[2017-02-16] MEDS: PIRFENIDONE 267 MG PO SCH ×3 (08:02→16:08)
[2017-02-16] MEDS: LEVALBUTEROL NEB 1.25 MG/3 ML AMP INHALATION SCH (09:00)
[2017-02-16] MEDS ORDERED: DILTIAZEM ORAL 30 MG TAB PO SCH (09:30)
--- NOTE | 2017-02-16 10:21 | P.PN ---
Subjective Progress Note Date: 02/16/17 Principal diagnosis: Atrial fibrillation with rapid ventricular rate 76-year-old lady with history of paroxysmal atrial fibrillation idiopathic pulmonary fibrosis who was initially admitted to hospital with atrial fibrillation with rapid ventricular rate converted to sinus rhythm was transferred to [facility] where I have been asked to see her again today she developed atrial fibrillation with rapid ventricular rate. Heart rates are in the 140s. Patient is symptomatic with it has palpitations and vague chest discomfort. I have reviewed rhythm strips on her and don't have an EKG rhythm strip show that she is in atrial fibrillation. I'm going to start her on intravenous Cardizem and start send her back upstairs. She is already on an anticoagulant. An echocardiogram done and had a clear on this admission revealed normal LV function without any valvular heart disease. We can consider starting her on flecainide if we have to. Objective - Vital Signs Vital signs: Vital Signs Temp 97 F L 02/16/17 07:00 Pulse 144 H 02/16/17 09:57 Resp 18 02/16/17 09:57 BP 120/53 02/16/17 09:57 Pulse Ox 97 02/16/17 09:57 Intake & Output 02/15/17 02/16/17 02/16/17 18:59 06:59 18:59 Intake Total 1080 350 Output Total 1950 100 Balance -870 250 Weight 77.2 kg Intake: Oral 1080 350 Output: Urine 1850 Stool 100 100 Other: Voiding Method Bedside Commode Bedside Commode Bedside Commode # Voids 4 1 # Bowel Movements 1 - Exam GENERAL: Patient is well developed and well nourished. Patient is nontoxic and well hydrated and is in no acute distress. ENT: Neck is soft and supple. No significant lymphadenopathy noted. Oropharynx clear. Moist mucous membranes. Neck has full range of motion without eliciting any pain. There is no thyroid enlargement and no masses are felt. EYES: Sclerae anicteric. PULMONARY: Unlabored respirations. Good breath sounds bilaterally. Occasional rhonchi bilaterally CARDIOVASCULAR: First and second heart sounds are heard. Irregular systolic murmur at left lower sternal border. No gallop. No rubs. No parasternal heave. ABDOMEN: Soft and nontender with normal bowel sounds. No palpable organomegaly noted. There is no palpable pulsatile mass. NEUROLOGIC: Patient is alert and oriented x3. Cranial nerves grossly intact. No focal neurological deficit. MUSCULOSKELETAL: Normal extremities with adequate strength and full range of motion. No lower extremity swelling or edema. No calf tenderness. PSYCHIATRIC: No signs of anxiety. - Labs CBC & Chem 7: 02/14/17 06:47 02/15/17 06:59 Labs: Abnormal Lab Results - Last 24 Hours (Table) 02/15/17 02/15/17 02/15/17 Range/Units 12:10 16:12 20:21 POC Glucose (mg/dL) 123 H 164 H 155 H (75-99) mg/dL Microbiology - Last 24 Hours (Table) 02/09/17 18:28 Blood Culture - Final Blood No Growth after 144 hours Assessment and Plan Plan: Paroxysmal atrial fibrillation with rapid ventricular rate I will transfer the patient to sixth floor. Start the patient on intravenous Cardizem. Patient is on an anticoagulant which I'm going to continue
[2017-02-16 10:34] LABS: Basophils % (A) 0 %; CHCM 32.9; Eosinophils # (A) 0.1 k/uL (0-0.7); Eosinophils % (A) 1 %; HCT 42.8 % (34.0-46.0); HDW 2.68; HGB 14.1 gm/dL (11.4-16.0); Luc # (Auto) 0.04; Luc % (Auto) 0; Lymphocytes # (A) 0.4 k/uL (1.0-4.8); Lymphocytes % (A) 3 %; MCH 33.1 pg (25.0-35.0); MCHC 32.9 g/dL (31.0-37.0); MCV 100.8 fL (80.0-100.0); Mean Platelet Volume 7.4; Monocytes # (A) 0.6 k/uL (0-1.0); Monocytes % (A) 4 %; Neutrophils # (A) 12.9 k/uL (1.3-7.7); Neutrophils % (A) 92 %; RBC 4.24 m/uL (3.80-5.40); WBC 14.1 k/uL (3.8-10.6); WBC (Perox) 14.41
[2017-02-16 10:49] LABS: Anion Gap 12 mmol/L; Blood Urea Nitrogen 22 mg/dL (7-17); Carbon Dioxide 28 mmol/L (22-30); Chloride 91 mmol/L (98-107); Glucose 192 mg/dL (74-99); Non-African American GFR(MDRD) >60 (>60 ml/min/1.73 sqM); Potassium 4.2 mmol/L (3.5-5.1); Sodium 131 mmol/L (137-145)
[2017-02-16] MEDS: DILTIAZEM 125 MG in SODIUM CHLORIDE 0.9% 100 ML IV SCH (11:48)
[2017-02-16 11:51] LABS: Glucose,Whole Blood 136 mg/dL (75-99)
--- NOTE | 2017-02-16 12:15 | P.PN ---
Subjective Progress Note Date: 02/16/17 Principal diagnosis: dyspnea, pneumonia, pulmonary fibrosis This is a 76-year-old female who is quite familiar to my service. Patient is known to have history of severe pulmonary fibrosis, felt to be usual interstitial pneumonitis and she has been placed on esbriet. In addition to her pulmonary fibrosis, patient is also known to have history of severe COPD, and history of a left upper lobe mass were and it initial diagnosis could never be established, but it was felt to be malignant. Medication and CT-guided needle biopsies failed to establish the diagnosis, patient was even referred to [facility] surgical staff, and it was felt that the patient is not a good surgical candidate, it was recommended that we treat the mass as malignant. Patient was given radiation therapy and she developed some component of radiation pneumonitis in the left upper lobe. Patient developed significant pain and worsening shortness of breath however she responded well to a maintenance dose of prednisone. She was also placed on auction 4 chronic hypoxic respiratory failure and kept on multiple bronchodilators. Patient was actually scheduled to have a repeat CT of the chest to follow-up on her interstitial lung disease and on her left upper lobe mass in early February. Patient presented today with mostly increased shortness of breath for the last few days. Dyspnea with any exertion, some productive cough with yellow phlegm, low-grade fever, no chills, no hemoptysis, and no chest pain. Patient felt that her pulmonary condition has been going downhill. Hence the patient came into the ER. CT angiogram of the chest showed no evidence of pulmonary embolism , it did show her usual pulmonary fibrosis, and the areas of nodularity in the left upper lobe unchanged compared to previous CT of the chest. A new left upper lobe nodule noted 9.8 mm in the left upper lobe and there was pleural thickening. Patient was admitted, placed on antibiotics, bronchodilators, steroids, and I was asked to see her on consultation. Upon my evaluation, I reviewed the CT of the chest findings with the patient, and explained to her that there is no evidence of thromboembolic disease. But she does have severe chronic interstitial lung disease along with underlying emphysema and bronchiectasis. On 02/08/2017 the patient is seen in follow-up. She continues to experience significant respiratory distress even going to the bedside commode. She states it takes her a while to recover after those episodes.continues on 3 L oxygen per nasal cannula with oxygen saturation around 92-93%. On IV antibiotics in the form of Rocephin and Zithromax, systemic steroids Solu-Medrol 60 mg every 6 hours and DuoNeb nebulized treatments. She does state that occasionally she has heart palpitations with the nebulized treatments. No significant sputum production. Lung sounds are coarse and respiratory crackles over posterior basis. Good air entry noted. No wheezing. No rhonchi. Continues on Esbriet for history of UIP. no febrile episodes through the night.Blood culture shows no growth at 24 hours. Remains marginal in terms of her abilityto tolerate even limited activity. Patient was reevaluated today on 02/09/2017, feeling better today for the first time. Patient was given a dose of Lasix earlier, hence I will try a maintenance Lasix dose on a daily basis at 20 mg by mouth daily. Patient is complaining of shortness of breath, but improved compared to her admission status. Last night, patient developed intermittent episodes of atrial fibrillation hence she was placed on selective. Placed on heparin and Cardizem drip, converted to sinus rhythm. 1 Lasix dose was given, chest x-ray is basically about the same. Again it shows interstitial lung disease, the possibility of underlying infection/pneumonitis is not entirely ruled out. Even the possibility of underlying component of congestive heart failure is also not entirely ruled out. But considering the patient improved with Lasix, I will place on a maintenance dose of Lasix on a daily basis. Reevaluated today on 02/10/2017, continues to feel a bit better compared to how she felt a few days ago. Remains on antibiotics, steroids, bronchodilators, and diuretics. Her last chest x-ray was basically about the same, but clinically the patient stated that she was feeling better. CBC was reviewed and basic metabolic profile was also reviewed. They seem to be relatively normal. Reevaluated today on 02/11/2017, patient continues to improve, much improved compared to her baseline upon admission. Less shortness of breath, no cough, no wheezing, she is becoming more ambulatory and active. Patient is almost near her baseline before she was admitted. I believe her paroxysmal atrial fibrillation may have been a major factor for her clinical deterioration, and now that it is controlled, patient is feeling better. Presently in sinus rhythm. CBC is normal. Basic metabolic profile is normal. Meds were all reviewed, remains on Lasix 20 mg daily, I will switch her Solu-Medrol to oral prednisone today. On 02/12/2017 patient's oxygen requirement is down to 6 L per old nasal cannula. Continues to slowly improve, she continues to increase her activity and tolerated better. chest X-ray from 02/12/2017 has been reviewed and shows pulmonary fibrosis with subsegmental consolidation stable in appearance. Lung sounds are clear with fine respiratory crackles over left posterior base. She denies wheezing, congestion. She's been afebrile. 02/13/2017 patient continues to improve, she is less short of breath with activity, no cough, no wheezing. She is becoming more active. Her oxygen requirement is down to 5 L per high flow nasal cannula with oxygen saturations around 94%. Significant sputum production, no wheezing, no rhonchi. Lung sounds continue with coarse crackles on the left posterior base greater than the right. Med have been reviewed, patient continues on oral Zithromax and prednisone 40 mg daily. Microbiology results and reviewed sputum culture is positive for Sherri albicans which is likely colonized. Blood Culture positive for Staphylococcus epidermidis, which is likely a contaminated specimen. On 02/14/2017 patient has reevaluated and she continues to improve from pulmonary standpoint. Her oxygen remains at 5 L per high flow nasal cannula but he can be further weaned down as she maintains her oxygen saturations from 94-96%. She has been afebrile, denies chest congestion, wheezes, or worsening dyspnea. She has been up ambulating in the hallway with portable oxygen. She is tolerates activity better. She continues on oral Zithromax for antibiotic coverage and oral prednisone. On 02/15/2017 patient is seen in follow-up. She is resting in bed comfortably she denies chest congestion, wheezes, fevers or chills. Her oxygen is down to 4 L per high flow nasal cannula, she has been ambulating with a portable tank in the jackson. She does desaturate to 81% while ambulating on 5 L. She has been evaluated by physical therapy and was told that she does not qualify for subacute rehab placement. The plan is to discharge her home, continue weaning oxygen follow-up appointment has been set up with Dr. Randhawa in 1 week. Overall she states she has significantly improved, she is able to tolerate activity a lot better. 02/16/2017 patient is reevaluated, patient remained stable from pulmonary standpoint. But she went into A. fib with RVR with a rate of 140 BPM this morning. Family has concerns about her Xopenex nebulizer treatments possibly triggering arrhythmia. We will go ahead and discontinue the Xopenex. He is sitting up in bed appears comfortable in no acute restaurant distress. Lung sounds are coarse and respiratory crackles over posterior basis which is unchanged from previous exams. It is nasal cannula with O2 saturations are 97% . Receive 1 dose of 40 mg of Lasix IV last night, we will re-check, her electrolytes and serum magnesium level, patient will be started on Cardizem drip per cardiology and transferred to the stepdown monitored bed. Objective - Vital Signs Vital signs: Vital Signs Temp 97 F L 02/16/17 07:00 Pulse 144 H 02/16/17 09:57 Resp 18 02/16/17 09:57 BP 120/53 02/16/17 09:57 Pulse Ox 97 02/16/17 09:57 Intake & Output 02/15/17 02/16/17 02/16/17 18:59 06:59 18:59 Intake Total 1080 350 Output Total 1950 100 Balance -870 250 Weight 77.2 kg Intake: Oral 1080 350 Output: Urine 1850 Stool 100 100 Other: Voiding Method Bedside Commode Bedside Commode Bedside Commode # Voids 4 1 # Bowel Movements 1 - Exam GENERAL EXAM: Alert, active, comfortable in no apparent distress. HEAD: Normocephalic. EYES: Normal reaction of pupils, equal size. NOSE: Clear with pink turbinates. THROAT: No erythema or exudates. NECK: No masses, no JVD. CHEST: No chest wall deformity. LUNGS: Equal air entry with no wheeze, rhonchi or dullness. Coarse crackles at posterior bases CVS: S1 and S2 normal with no audible mumurs, irregularly irregular rhythm. ABDOMEN: No hepatosplenomegaly, normal bowel sounds, no guarding or rigidity. SPINE: No scoliosis or deformity SKIN: No rashes CENTRAL NERVOUS SYSTEM: No focal deficits, tone is normal in all 4 extremities. - Labs CBC & Chem 7: 02/16/17 10:21 02/16/17 10:21 Labs: Abnormal Lab Results - Last 24 Hours (Table) 02/15/17 02/15/17 02/15/17 Range/Units 12:10 16:12 20:21 WBC (3.8-10.6) k/uL MCV (80.0-100.0) fL Neutrophils # (1.3-7.7) k/uL Lymphocytes # (1.0-4.8) k/uL Sodium (137-145) mmol/L Chloride (98-107) mmol/L BUN (7-17) mg/dL Glucose (74-99) mg/dL POC Glucose (mg/dL) 123 H 164 H 155 H (75-99) mg/dL 02/16/17 02/16/17 02/16/17 Range/Units 10:21 10:21 11:49 WBC 14.1 H (3.8-10.6) k/uL MCV 100.8 H (80.0-100.0) fL Neutrophils # 12.9 H (1.3-7.7) k/uL Lymphocytes # 0.4 L (1.0-4.8) k/uL Sodium 131 L (137-145) mmol/L Chloride 91 L (98-107) mmol/L BUN 22 H (7-17) mg/dL Glucose 192 H (74-99) mg/dL POC Glucose (mg/dL) 136 H (75-99) mg/dL Microbiology - Last 24 Hours (Table) 02/09/17 18:28 Blood Culture - Final Blood No Growth after 144 hours Assessment and Plan Plan: Assessment and Plan Impression: 1 acute on chronic hypoxic respiratory failure secondary to severe and worsening pulmonary fibrosis/UIP, chronic obstructive pulmonary disease, and bronchiectasis. As well as history of radiation pneumonitis involving the left upper lobe. 2 severe underlying COPD 3 severe interstitial lung disease, UIP 4 bronchiectasis 5 radiation pneumonitis and strongly suspect underlying malignancy involving the left upper lobe 6 cannot rule out underlying pneumonitis and bacterial infection hence the patient will need to be empirically covered with antibiotics. 7 multiple comorbidities including underlying coronary artery disease, hyperlipidemia, history of GERD, history of benign essential hypertension, history of osteoarthritis. Plan: We will stop the Zithromax, microbiology results have been reviewed. Stopped Xopenex nebulizer treatments, oral steroids and pirfenedone. Clinically patient continues to improve from pulmonary standpoint. Continue weaning oxygen. Encourage pulmonary toileting. Has been initiated on Cardizem drip per cardiology for A. fib RVR with a rate of 140 BPM, we'll recheck her lites and serum magnesium. Overall long-term prognosis remains poor and guarded. We will continue to follow. I performed a history & physical examination of the patient and discussed their management with my nurse practitioner, Estefanía Colón. I reviewed the nurse practitioner's note and agree with the documented findings and plan of care.
--- NOTE | 2017-02-16 12:15 | XR ---
EXAMINATION TYPE: XR abdomen 1V DATE OF EXAM: 02/16/2017 COMPARISON: 09/25/2015 HISTORY: Abdominal pain TECHNIQUE: One view abdominal series FINDINGS: The osseous structures are intact. The bowel gas pattern is nonspecific. Degenerative change of the spine noted. Arthropathy of the hips. Surgical clips noted. Diffuse osteopenia is seen. Findings sugg est chronic interstitial lung disease. IMPRESSION: 1. Nonspecific abdomen.
[2017-02-16] MEDS: DILTIAZEM ORAL 60 MG TAB PO SCH ×3 (12:16→21:29)
[2017-02-16] MEDS: LACTOBACILLUS ACIDOPH & BULGAR 1 EACH PACKET PO SCH (12:17)
--- NOTE | 2017-02-16 15:24 | P.PN ---
Subjective Progress Note Date: 02/16/17 75-year-old female, patient of Dr. Rivero with a history of a well- established idiopathic pulmonary fibrosis on Esbriet,started on a new anti- fibrotic drug by Dr. 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 Patient presented to the emergency department at [facility] complaining of back pain between her shoulder blade area along with significant shortness of breath cough and wheezes and worsening symptoms compared to her baseline. Patient also developed to have fever, chills and mildly productive cough. She was out of breath and had an episode of gasping for past couple of days patient is at 2 L of oxygen at home is currently requiring 2.5 L. She does have some discomfort but it's related to her breathing but denies any chest pain. Patient denies any sick contact or recent travel. She is nauseous but denies any episode of vomiting, decreased appetite and generalized weakness. She has not noticed that her ankles are more swollen than before. Patient denies any exposure to TB, birds or bats CT was ordered in the ED to rule out pulmonary embolism which was negative. Patient does have a pleural mass but no significant vascular congestion or consolidation seen. 02/08: Patient states she is very tired today and not sleep well last night. She has ambulated to the bathroom abases herself due to shortness of breath with only a few steps. She is normally on home O2 at [address] nasal cannula. By Dr. Randhawa. 02/09: Last evening, patient developed increasing shortness of breath and atrial fibrillation was transferred to the selective care unit. She was placed on heparin drip and Cardizem drip and subsequently converted to normal sinus rhythm. Patient is still requiring oxygen at 8 L. One dose of IV Lasix given. Repeat chest x-ray ordered that showed stable findings with bilateral upper lobe infiltrate and nodularity with findings suggestive of pulmonary fibrosis.. 02/10: Patient was evaluated today. She was noted to have some atrial fibrillation yesterday, she is currently maintaining sinus rhythm. She is consulted by cardiology, continue current dose of atenolol, and Eliquis 5 mg by mouth twice a day added. She denies any chest pain or palpitations. She continues to require 6L via nasal cannula and is maintaining an O2 saturation of 91%. Pulmonology is on consult. 02/11: Patient was noted to be sitting up in bed resting comfortably, in no acute distress. She reports breathing is a lot better and she feels well, although she was on 6 L nasal cannula, oxygen decreased to 5 L, O2 saturation 97 %. We'll continue to try to wean down oxygen today. ABG ordered, respiratory culture sent this morning. Vancomycin discontinued. She has not had any further episodes of atrial fibrillation, she remains in sinus rhythm. 02/12: Patient continues to have shortness of breath and is requiring more oxygen. She is currently on high flow O2 at 6 L and pulse ox 93%. Solu-Medrol changed to oral prednisone for tomorrow. Lasix IV increase to 40 mg daily. Await further recommendations from Dr. Micehl. 02/13: Patient is currently on 5 L and discussed briefly with patient that she needs to be prepared for worsening pulmonary fibrosis and this may be her new normal and will need to increase her home O2 use. Sputum is positive for Sherri. Blood culture appears to be contamination. The patient will be transferred to the [facility] floor. 02/14: Patient states that her blood sugar dropped during the night and she had to have gram crackers with peanut butter which caused heartburn and this causes her to have increased anxiety and shortness of breath. Protonix has been added. She also states she has decreased appetite. Patient states that she is a little more short of breath but is talking today in full sentences and appears to be comfortable. She denies having any dizziness but does have weakness. Pulse ox is currently 93% on 5 L. Prednisone decreased to 30 mg daily. She is complaining of soreness in the shoulder blade area from laying in bed. PEDRO powers also added. Physical therapy and occupational therapy recommended home with homecare. 02/15: Patient has been seen by Dr. Mac this morning cleared for discharge. Prednisone will be decreased to 20 mg daily and one dose of Lasix will be given this morning IV. Nursing to try and wean her down to 3 L nasal cannula. Awaiting insurance authorization for possible subacute rehab. Patient will be ready for discharge tomorrow. 02/16: Patient developed atrial fibrillation with rapid ventricular response and again was transferred up to selective care unit. She is on eliquis. We have discontinued atenolol and started Cardizem orally 60 mg 3 times daily. However medicine has stopped nebulizer treatments. Pulse ox is now 97% on 3 L nasal cannula. Prednisone is down to 20 mg daily. Patient does state that she had lightheadedness yesterday after IV Lasix. This was subsequently discontinued. Patient states she has had a couple often bowel movements but not diarrhea but her abdomen feels full. Abdominal x-rays ordered. Objective - Vital Signs Vital signs: Vital Signs Temp 97 F L 02/16/17 07:00 Pulse 144 H 02/16/17 09:57 Resp 18 02/16/17 09:57 BP 120/53 02/16/17 09:57 Pulse Ox 97 02/16/17 09:57 Intake & Output 02/15/17 02/16/17 02/16/17 18:59 06:59 18:59 Intake Total 1080 350 Output Total 1950 100 Balance -870 250 Weight 77.2 kg Intake: Oral 1080 350 Output: Urine 1850 Stool 100 100 Other: Voiding Method Bedside Commode Bedside Commode Bedside Commode # Voids 4 1 # Bowel Movements 1 - Exam General appearance: average body habitus, no acute distress - EENT Eyes: EOMI, PERRLA, no photophobia ENT: normal oropharynx Ears: bilateral: normal - Neck Carotids: bilateral: upstroke normal - Respiratory Respiratory: bilateral: rales, rhonchi, wheezing, negative: CTA, dullness, prolonged expiration - Cardiovascular Rhythm: irregular, tachycardia Heart sounds: normal: S1, S2 Abnormal Heart Sounds: no systolic murmur, no diastolic murmur - Gastrointestinal General gastrointestinal: normal bowel sounds, soft, no tenderness - Integumentary Integumentary: no flushed, no jaundiced - Neurologic Neurologic: CNII-XII intact - Musculoskeletal Musculoskeletal: gait normal, generalized weakness, no strength equal bilaterally - Psychiatric Psychiatric: A&O x's 3, appropriate affect - Labs CBC & Chem 7: 02/16/17 10:21 02/16/17 10:21 Labs: Abnormal Lab Results - Last 24 Hours (Table) 02/15/17 02/15/17 02/15/17 Range/Units 12:10 16:12 20:21 POC Glucose (mg/dL) 123 H 164 H 155 H (75-99) mg/dL Microbiology - Last 24 Hours (Table) 02/09/17 18:28 Blood Culture - Final Blood No Growth after 144 hours Assessment and Plan Plan: 1 acute on chronic hypoxic respiratory failure: Combination of pulmonary fibrosis, infection, COPD exacerbation and possible metastasis. 2 COPD exacerbation: With patient's current symptoms patient will be on Solu- Medrol to prednisone, DuoNeb, Pulmicort and will consult pulmonary. 3 advance pulmonary fibrosis: Long-standing has been seen pulmonary for long time continue current pulmonary medication at this point. 4 febrile illness likley secondary to severe bronchitis - continue Rocephin and azithromycin 5 CAD: No chest pain or angina patient remain on Tenormin and losartan resume medication. 6 hyperlipidemia: Not on any medication currently. 7 arrhythmia: Has been doing very well on atenolol. 8 severe GERD/GI prophylaxis: Patient will be on Nexium 40 mg daily. 9 new onset atrial fibrillation, paroxysmal. Patient has been on IV Cardizem and heparin drips on first episode and continued on atenolol. Atenolol discontinued and patient started on Cardizem 60 mg 3 times daily. Continue eliquis. DVT prophylaxis: Patient will be on heparin subcutaneous. CODE STATUS: Full code. Discharge plan: [facility] under the care of Dr. Ruiz on Sunday. Impression and plan of care have been directed as dictated by the signing physician. Ratna Arredondo nurse practitioner acting as scribe for signing physician.
[2017-02-16 16:37] LABS: Glucose,Whole Blood 120 mg/dL (75-99)
[2017-02-16] MEDS: HYDROcodone/APAP 5-325MG 1 EACH TAB PO PRN (18:07)
[2017-02-16 20:50] LABS: Glucose,Whole Blood 126 mg/dL (75-99)
[2017-02-17 06:28] LABS: Glucose,Whole Blood 90 mg/dL (75-99)
[2017-02-17] MEDS: PANTOPRAZOLE 40 MG TABLET PO SCH (06:44)
[2017-02-17] MEDS: PIRFENIDONE 267 MG PO SCH ×3 (06:44→16:25)
[2017-02-17] MEDS: DILTIAZEM 125 MG in SODIUM CHLORIDE 0.9% 100 ML IV SCH (08:22)
[2017-02-17] MEDS: DILTIAZEM ORAL 60 MG TAB PO SCH ×3 (08:23→21:13)
[2017-02-17] MEDS: APIXABAN 5 MG TAB PO SCH ×2 (08:23→21:13)
[2017-02-17] MEDS: predniSONE 20 MG TAB PO SCH (08:24)
[2017-02-17] MEDS: LOSARTAN 50 MG TAB PO SCH (08:24)
[2017-02-17] MEDS: NYSTATIN 100,000 UNIT/ML SUSP 500,000 UNIT/5 ML CUP PO SCH ×4 (08:24→21:13)
[2017-02-17 10:55] LABS: Anion Gap 9 mmol/L; Blood Urea Nitrogen 16 mg/dL (7-17); Calcium 8.8 mg/dL (8.4-10.2); Carbon Dioxide 30 mmol/L (22-30); Chloride 93 mmol/L (98-107); Glucose 142 mg/dL (74-99); Non-African American GFR(MDRD) >60 (>60 ml/min/1.73 sqM); Sodium 132 mmol/L (137-145)
[2017-02-17 11:56] LABS: Glucose,Whole Blood 121 mg/dL (75-99)
[2017-02-17] MEDS: LACTOBACILLUS ACIDOPH & BULGAR 1 EACH PACKET PO SCH (11:56)
[2017-02-17] MEDS: FLECAINIDE 50 MG TAB PO SCH ×2 (13:28→21:13)
--- NOTE | 2017-02-17 13:50 | P.PN ---
Subjective Progress Note Date: 02/17/17 This is a 76-year-old female who is quite familiar to my service. Patient is known to have history of severe pulmonary fibrosis, felt to be usual interstitial pneumonitis and she has been placed on esbriet. In addition to her pulmonary fibrosis, patient is also known to have history of severe COPD, and history of a left upper lobe mass were and it initial diagnosis could never be established, but it was felt to be malignant. Medication and CT-guided needle biopsies failed to establish the diagnosis, patient was even referred to [facility] surgical staff, and it was felt that the patient is not a good surgical candidate, it was recommended that we treat the mass as malignant. Patient was given radiation therapy and she developed some component of radiation pneumonitis in the left upper lobe. Patient developed significant pain and worsening shortness of breath however she responded well to a maintenance dose of prednisone. She was also placed on auction 4 chronic hypoxic respiratory failure and kept on multiple bronchodilators. Patient was actually scheduled to have a repeat CT of the chest to follow-up on her interstitial lung disease and on her left upper lobe mass in early February. Patient presented today with mostly increased shortness of breath for the last few days. Dyspnea with any exertion, some productive cough with yellow phlegm, low-grade fever, no chills, no hemoptysis, and no chest pain. Patient felt that her pulmonary condition has been going downhill. Hence the patient came into the ER. CT angiogram of the chest showed no evidence of pulmonary embolism , it did show her usual pulmonary fibrosis, and the areas of nodularity in the left upper lobe unchanged compared to previous CT of the chest. A new left upper lobe nodule noted 9.8 mm in the left upper lobe and there was pleural thickening. Patient was admitted, placed on antibiotics, bronchodilators, steroids, and I was asked to see her on consultation. Upon my evaluation, I reviewed the CT of the chest findings with the patient, and explained to her that there is no evidence of thromboembolic disease. But she does have severe chronic interstitial lung disease along with underlying emphysema and bronchiectasis. On 02/08/2017 the patient is seen in follow-up. She continues to experience significant respiratory distress even going to the bedside commode. She states it takes her a while to recover after those episodes.continues on 3 L oxygen per nasal cannula with oxygen saturation around 92-93%. On IV antibiotics in the form of Rocephin and Zithromax, systemic steroids Solu-Medrol 60 mg every 6 hours and DuoNeb nebulized treatments. She does state that occasionally she has heart palpitations with the nebulized treatments. No significant sputum production. Lung sounds are coarse and respiratory crackles over posterior basis. Good air entry noted. No wheezing. No rhonchi. Continues on Esbriet for history of UIP. no febrile episodes through the night.Blood culture shows no growth at 24 hours. Remains marginal in terms of her abilityto tolerate even limited activity. Patient was reevaluated today on 02/09/2017, feeling better today for the first time. Patient was given a dose of Lasix earlier, hence I will try a maintenance Lasix dose on a daily basis at 20 mg by mouth daily. Patient is complaining of shortness of breath, but improved compared to her admission status. Last night, patient developed intermittent episodes of atrial fibrillation hence she was placed on selective. Placed on heparin and Cardizem drip, converted to sinus rhythm. 1 Lasix dose was given, chest x-ray is basically about the same. Again it shows interstitial lung disease, the possibility of underlying infection/pneumonitis is not entirely ruled out. Even the possibility of underlying component of congestive heart failure is also not entirely ruled out. But considering the patient improved with Lasix, I will place on a maintenance dose of Lasix on a daily basis. Reevaluated today on 02/10/2017, continues to feel a bit better compared to how she felt a few days ago. Remains on antibiotics, steroids, bronchodilators, and diuretics. Her last chest x-ray was basically about the same, but clinically the patient stated that she was feeling better. CBC was reviewed and basic metabolic profile was also reviewed. They seem to be relatively normal. Reevaluated today on 02/11/2017, patient continues to improve, much improved compared to her baseline upon admission. Less shortness of breath, no cough, no wheezing, she is becoming more ambulatory and active. Patient is almost near her baseline before she was admitted. I believe her paroxysmal atrial fibrillation may have been a major factor for her clinical deterioration, and now that it is controlled, patient is feeling better. Presently in sinus rhythm. CBC is normal. Basic metabolic profile is normal. Meds were all reviewed, remains on Lasix 20 mg daily, I will switch her Solu-Medrol to oral prednisone today. On 02/12/2017 patient's oxygen requirement is down to 6 L per old nasal cannula. Continues to slowly improve, she continues to increase her activity and tolerated better. chest X-ray from 02/12/2017 has been reviewed and shows pulmonary fibrosis with subsegmental consolidation stable in appearance. Lung sounds are clear with fine respiratory crackles over left posterior base. She denies wheezing, congestion. She's been afebrile. 02/13/2017 patient continues to improve, she is less short of breath with activity, no cough, no wheezing. She is becoming more active. Her oxygen requirement is down to 5 L per high flow nasal cannula with oxygen saturations around 94%. Significant sputum production, no wheezing, no rhonchi. Lung sounds continue with coarse crackles on the left posterior base greater than the right. Med have been reviewed, patient continues on oral Zithromax and prednisone 40 mg daily. Microbiology results and reviewed sputum culture is positive for Sherri albicans which is likely colonized. Blood Culture positive for Staphylococcus epidermidis, which is likely a contaminated specimen. On 02/14/2017 patient has reevaluated and she continues to improve from pulmonary standpoint. Her oxygen remains at 5 L per high flow nasal cannula but he can be further weaned down as she maintains her oxygen saturations from 94-96%. She has been afebrile, denies chest congestion, wheezes, or worsening dyspnea. She has been up ambulating in the hallway with portable oxygen. She is tolerates activity better. She continues on oral Zithromax for antibiotic coverage and oral prednisone. On 02/15/2017 patient is seen in follow-up. She is resting in bed comfortably she denies chest congestion, wheezes, fevers or chills. Her oxygen is down to 4 L per high flow nasal cannula, she has been ambulating with a portable tank in the jackson. She does desaturate to 81% while ambulating on 5 L. She has been evaluated by physical therapy and was told that she does not qualify for subacute rehab placement. The plan is to discharge her home, continue weaning oxygen follow-up appointment has been set up with Dr. Randhawa in 1 week. Overall she states she has significantly improved, she is able to tolerate activity a lot better. 02/16/2017 patient is reevaluated, patient remained stable from pulmonary standpoint. But she went into A. fib with RVR with a rate of 140 BPM this morning. Family has concerns about her Xopenex nebulizer treatments possibly triggering arrhythmia. We will go ahead and discontinue the Xopenex. He is sitting up in bed appears comfortable in no acute restaurant distress. Lung sounds are coarse and respiratory crackles over posterior basis which is unchanged from previous exams. It is nasal cannula with O2 saturations are 97% . Receive 1 dose of 40 mg of Lasix IV last night, we will re-check, her electrolytes and serum magnesium level, patient will be started on Cardizem drip per cardiology and transferred to the stepdown monitored bed. on 02/17/2017 the patient is seen again in follow-up on the selective care unit. She is currently sitting up in bed. She is awake and alert in no acute distress. She is converted back to normal sinus rhythm currently.she remains on Cardizem and flecainide has been added per cardiology. She is anticoagulated with L request. She currently denies any shortness of breath, cough or congestion. No chest pain palpitations lightheadedness or dizziness.she is maintaining good O2 saturations in the upper 90s on 3 L/m per nasal cannula. She's been afebrile. Hemodynamically stable. Objective - Vital Signs Vital signs: Vital Signs Temp 99.4 F 02/17/17 11:19 Pulse 65 02/17/17 11:20 Resp 18 02/17/17 11:20 BP 118/65 02/17/17 11:19 Pulse Ox 95 02/17/17 11:19 Intake & Output 02/16/17 02/17/17 02/17/17 18:59 06:59 18:59 Intake Total 440 398 Output Total 100 300 600 Balance 340 -300 -202 Weight 76.5 kg Intake: Intake, IV Titration 0 Amount Diltiazem 125 mg In 0 Sodium Chloride 0.9% 100 ml @ 5 MG/HR 5 mls/hr IV .Q24H EMILY Rx#:[id number] Oral 440 398 Output: Urine 300 600 Stool 100 Other: Voiding Method Bedside Commode # Voids 0 # Bowel Movements 0 - Exam GENERAL EXAM: Alert, active, comfortable in no apparent distress. HEAD: Normocephalic. EYES: Normal reaction of pupils, equal size. NOSE: Clear with pink turbinates. THROAT: No erythema or exudates. NECK: No masses, no JVD. CHEST: No chest wall deformity. LUNGS: Equal air entry with no crackles, wheeze, rhonchi or dullness. CVS: S1 and S2 normal with no audible murmurs, regular rhythm. ABDOMEN: No hepatosplenomegaly, normal bowel sounds, no guarding or rigidity. SPINE: No scoliosis or deformity SKIN: No rashes CENTRAL NERVOUS SYSTEM: No focal deficits, tone is normal in all 4 extremities. Extremities: There is no significant peripheral edema. No clubbing, no cyanosis. Peripheral pulses are intact. - Labs CBC & Chem 7: 02/16/17 10:21 02/17/17 10:25 Labs: Abnormal Lab Results - Last 24 Hours (Table) 02/16/17 02/16/17 02/17/17 Range/Units 16:27 20:49 10:25 Sodium 132 L (137-145) mmol/L Chloride 93 L (98-107) mmol/L Glucose 142 H (74-99) mg/dL POC Glucose (mg/dL) 120 H 126 H (75-99) mg/dL 02/17/17 Range/Units 11:41 Sodium (137-145) mmol/L Chloride (98-107) mmol/L Glucose (74-99) mg/dL POC Glucose (mg/dL) 121 H (75-99) mg/dL Assessment and Plan Plan: Impression: 1 acute on chronic hypoxic respiratory failure secondary to severe and worsening pulmonary fibrosis/UIP, chronic obstructive pulmonary disease, and bronchiectasis. As well as history of radiation pneumonitis involving the left upper lobe. 2 severe underlying COPD 3 severe interstitial lung disease, UIP 4 bronchiectasis 5 radiation pneumonitis and strongly suspect underlying malignancy involving the left upper lobe 6 cannot rule out underlying pneumonitis and bacterial infection hence the patient will need to be empirically covered with antibiotics. 7 multiple comorbidities including underlying coronary artery disease, hyperlipidemia, history of GERD, history of benign essential hypertension, history of osteoarthritis. Plan: The patient was seen and evaluated by Dr. Michel. She is stable from the pulmonary standpoint. She remains off bronchodilators for now. She is back in normal sinus rhythm with good rate control.we will increase her activity as tolerated. We'll continue to follow. I performed a history of physical exam on the patient. Continues with coarse crackles in the bilateral bases. Maintaining O2 saturations in the upper 90s on 3 L. The interval history, assessment and plan of care were discussed with my nurse practitioner, Lauren Small. I agree with the above note.
--- NOTE | 2017-02-17 14:52 | PN ---
PROGRESS NOTE Mrs. Simon is a 76-year-old female with a history of hypertension, history of idiopathic pulmonary fibrosis who has been having episode of paroxysmal atrial fibrillation. She was transferred back to the floor yesterday because of an episode of atrial fibrillation. She is feeling well this morning. She continues to be in sinus mechanism. She is denies any chest pain. She has no dizziness or palpitation. She still has dyspnea on exertion. She denies any nausea or vomiting. She had an echocardiogram performed during this admission and that has revealed a normal left ventricular size and systolic function. She had moderate tricuspid regurgitation. MEDICATION: At this time includes: 1. Diltiazem 60 mg 3 times a day. 2. Losartan 100 mg daily and. 3. Eliquis 5 mg twice a day. PHYSICAL EXAMINATION: Blood pressure 118/60 with a heart rate in the 60s. LUNGS: With few dry crackles. HEART: Regular rate and rhythm. S1, S2. No S3. No rub. ABDOMEN: Soft, nontender. EXTREMITIES: No edema. LAB DATA: Revealed BUN and creatinine 16 and 0.79, potassium 4.0. IMPRESSION: 1. Paroxysmal atrial fibrillation. 2. Idiopathic pulmonary fibrosis. 3. Hypertension. RECOMMENDATION: At this time, I will continue on the anticoagulation, but I will add to the regimen flecainide 50 mg daily with the hope to maintain sinus mechanism. We will repeat her EKG tomorrow and depending on her response, further recommendation will be made. Those findings were discussed with the patient and her . MMODL / IJN: [id number] /
[2017-02-17 17:02] LABS: Glucose,Whole Blood 119 mg/dL (75-99)
--- NOTE | 2017-02-17 17:02 | P.PN ---
Subjective Progress Note Date: 02/17/17 75-year-old female, patient of Dr. Rivero with a history of a well- established idiopathic pulmonary fibrosis on Esbriet,started on a new anti- fibrotic drug by Dr. 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 Patient presented to the emergency department at [facility] complaining of back pain between her shoulder blade area along with significant shortness of breath cough and wheezes and worsening symptoms compared to her baseline. Patient also developed to have fever, chills and mildly productive cough. She was out of breath and had an episode of gasping for past couple of days patient is at 2 L of oxygen at home is currently requiring 2.5 L. She does have some discomfort but it's related to her breathing but denies any chest pain. Patient denies any sick contact or recent travel. She is nauseous but denies any episode of vomiting, decreased appetite and generalized weakness. She has not noticed that her ankles are more swollen than before. Patient denies any exposure to TB, birds or bats CT was ordered in the ED to rule out pulmonary embolism which was negative. Patient does have a pleural mass but no significant vascular congestion or consolidation seen. 02/08: Patient states she is very tired today and not sleep well last night. She has ambulated to the bathroom abases herself due to shortness of breath with only a few steps. She is normally on home O2 at 2 L nasal cannula. By Dr. Randhawa. 02/09: Last evening, patient developed increasing shortness of breath and atrial fibrillation was transferred to the selective care unit. She was placed on heparin drip and Cardizem drip and subsequently converted to normal sinus rhythm. Patient is still requiring oxygen at 8 L. One dose of IV Lasix given. Repeat chest x-ray ordered that showed stable findings with bilateral upper lobe infiltrate and nodularity with findings suggestive of pulmonary fibrosis.. 02/10: Patient was evaluated today. She was noted to have some atrial fibrillation yesterday, she is currently maintaining sinus rhythm. She is consulted by cardiology, continue current dose of atenolol, and Eliquis 5 mg by mouth twice a day added. She denies any chest pain or palpitations. She continues to require 6L via nasal cannula and is maintaining an O2 saturation of 91%. Pulmonology is on consult. 02/11: Patient was noted to be sitting up in bed resting comfortably, in no acute distress. She reports breathing is a lot better and she feels well, although she was on 6 L nasal cannula, oxygen decreased to 5 L, O2 saturation 97 %. We'll continue to try to wean down oxygen today. ABG ordered, respiratory culture sent this morning. Vancomycin discontinued. She has not had any further episodes of atrial fibrillation, she remains in sinus rhythm. 02/12: Patient continues to have shortness of breath and is requiring more oxygen. She is currently on high flow O2 at 6 L and pulse ox 93%. Solu-Medrol changed to oral prednisone for tomorrow. Lasix IV increase to 40 mg daily. Await further recommendations from Dr. Michel. 02/13: Patient is currently on 5 L and discussed briefly with patient that she needs to be prepared for worsening pulmonary fibrosis and this may be her new normal and will need to increase her home O2 use. Sputum is positive for Sherri. Blood culture appears to be contamination. The patient will be transferred to the [facility] floor. 02/14: Patient states that her blood sugar dropped during the night and she had to have gram crackers with peanut butter which caused heartburn and this causes her to have increased anxiety and shortness of breath. Protonix has been added. She also states she has decreased appetite. Patient states that she is a little more short of breath but is talking today in full sentences and appears to be comfortable. She denies having any dizziness but does have weakness. Pulse ox is currently 93% on 5 L. Prednisone decreased to 30 mg daily. She is complaining of soreness in the shoulder blade area from laying in bed. PEDRO powers also added. Physical therapy and occupational therapy recommended home with homecare. 02/15: Patient has been seen by Dr. Mac this morning cleared for discharge. Prednisone will be decreased to 20 mg daily and one dose of Lasix will be given this morning IV. Nursing to try and wean her down to 3 L nasal cannula. Awaiting insurance authorization for possible subacute rehab. Patient will be ready for discharge tomorrow. 02/16: Patient developed atrial fibrillation with rapid ventricular response and again was transferred up to selective care unit. She is on eliquis. We have discontinued atenolol and started Cardizem orally 60 mg 3 times daily. However medicine has stopped nebulizer treatments. Pulse ox is now 97% on 3 L nasal cannula. Prednisone is down to 20 mg daily. Patient does state that she had lightheadedness yesterday after IV Lasix. This was subsequently discontinued. Patient states she has had a couple often bowel movements but not diarrhea but her abdomen feels full. Abdominal x-rays ordered. 02/17: Patient is feeling better today she denies any chest pain, or shortness breath, she was started history and Cardizem 60 mg orally 3 times every day, she is less short of breath, she will be staying the hospital for another 24 hours hopefully she will be discharged home on Sunday morning. Objective - Vital Signs Vital signs: Vital Signs Temp 99.4 F 02/17/17 11:19 Pulse 65 02/17/17 11:20 Resp 18 02/17/17 11:20 BP 118/65 02/17/17 11:19 Pulse Ox 95 02/17/17 11:19 Intake & Output 02/16/17 02/17/17 02/17/17 18:59 06:59 18:59 Intake Total 440 398 Output Total 100 300 600 Balance 340 -300 -202 Weight 76.5 kg Intake: Intake, IV Titration 0 Amount Diltiazem 125 mg In 0 Sodium Chloride 0.9% 100 ml @ 5 MG/HR 5 mls/hr IV .Q24H [facility] Rx#:[id number] Oral 440 398 Output: Urine 300 600 Stool 100 Other: Voiding Method Bedside Commode # Voids 0 # Bowel Movements 0 - Exam - Exam General appearance: average body habitus, no acute distress - EENT Eyes: EOMI, PERRLA, no photophobia ENT: normal oropharynx Ears: bilateral: normal - Neck Carotids: bilateral: upstroke normal - Respiratory Respiratory: bilateral: rales, rhonchi, wheezing, negative: CTA, dullness, prolonged expiration - Cardiovascular Rhythm: Regular Heart sounds: normal: S1, S2 Abnormal Heart Sounds: no systolic murmur, no diastolic murmur - Gastrointestinal General gastrointestinal: normal bowel sounds, soft, no tenderness - Integumentary Integumentary: no flushed, no jaundiced - Neurologic Neurologic: CNII-XII intact - Musculoskeletal Musculoskeletal: gait normal, generalized weakness, no strength equal bilaterally - Psychiatric Psychiatric: A&O x's 3, appropriate affect - Labs CBC & Chem 7: 02/16/17 10:21 02/17/17 10:25 Labs: Abnormal Lab Results - Last 24 Hours (Table) 02/16/17 02/16/17 02/17/17 Range/Units 16:27 20:49 10:25 Sodium 132 L (137-145) mmol/L Chloride 93 L (98-107) mmol/L Glucose 142 H (74-99) mg/dL POC Glucose (mg/dL) 120 H 126 H (75-99) mg/dL 02/17/17 Range/Units 11:41 Sodium (137-145) mmol/L Chloride (98-107) mmol/L Glucose (74-99) mg/dL POC Glucose (mg/dL) 121 H (75-99) mg/dL Assessment and Plan Plan: Assessment and plan: 1 acute on chronic hypoxic respiratory failure: Combination of pulmonary fibrosis, infection, COPD exacerbation and possible metastasis. 2 COPD exacerbation: With patient's current symptoms patient will be on Solu- Medrol to prednisone, DuoNeb, Pulmicort and will consult pulmonary. 3 advance pulmonary fibrosis: Long-standing has been seen pulmonary for long time continue current pulmonary medication at this point. 4 febrile illness likley secondary to severe bronchitis - continue Rocephin and azithromycin 5 CAD: No chest pain or angina patient remain on Tenormin and losartan resume medication. 6 hyperlipidemia: Not on any medication currently. 7 arrhythmia: Has been doing very well on atenolol. 8 severe GERD/GI prophylaxis: Patient will be on Nexium 40 mg daily. 9 new onset atrial fibrillation, paroxysmal. Continue patient on Cardizem 60 mg orally 3 times every day, Eliquis 5 mg orally twice every day, propafenone 50 mg orally twice every day, cariology is following, patient will be discharged home in the next 24-48 hours if okay with cardiology.. DVT prophylaxis: Patient on Eliquis. CODE STATUS: Full code. Discharge plan: [facility] versus home on Sunday.
[2017-02-17] MEDS: HYDROcodone/APAP 5-325MG 1 EACH TAB PO PRN (18:36)
[2017-02-17 21:08] LABS: Glucose,Whole Blood 92 mg/dL (75-99)
[2017-02-18 05:50] LABS: Glucose,Whole Blood 92 mg/dL (75-99)
[2017-02-18 06:06] LABS: Basophils % (A) 0 %; CH 34.1; CHCM 33.5; Eosinophils # (A) 0.1 k/uL (0-0.7); Eosinophils % (A) 2 %; HCT 38.9 % (34.0-46.0); HDW 2.59; HGB 12.4 gm/dL (11.4-16.0); Luc # (Auto) 0.04; Luc % (Auto) 1; Lymphocytes # (A) 0.4 k/uL (1.0-4.8); Lymphocytes % (A) 5 %; MCH 32.7 pg (25.0-35.0); Macrocytosis Slight; Mean Platelet Volume 7.9; Monocytes # (A) 0.5 k/uL (0-1.0); Monocytes % (A) 6 %; Neutrophils # (A) 6.3 k/uL (1.3-7.7); Neutrophils % (A) 87 %; RBC 3.81 m/uL (3.80-5.40); RDW 13.9 % (11.5-15.5); WBC 7.3 k/uL (3.8-10.6); WBC (Perox) 7.57
[2017-02-18 06:25] LABS: ALT 41 U/L (9-52); AST 17 U/L (14-36); Alkaline Phosphatase 52 U/L (38-126); Anion Gap 4 mmol/L; Blood Urea Nitrogen 12 mg/dL (7-17); Carbon Dioxide 32 mmol/L (22-30); Chloride 97 mmol/L (98-107); Glucose 94 mg/dL (74-99); Non-African American GFR(MDRD) >60 (>60 ml/min/1.73 sqM); Potassium 4.4 mmol/L (3.5-5.1); Sodium 133 mmol/L (137-145); Total Bilirubin 0.5 mg/dL (0.2-1.3); Total Protein 5.2 g/dL (6.3-8.2)
[2017-02-18] MEDS: PANTOPRAZOLE 40 MG TABLET PO SCH (06:52)
[2017-02-18] MEDS: PIRFENIDONE 267 MG PO SCH ×3 (06:52→16:35)
[2017-02-18] MEDS: FLECAINIDE 50 MG TAB PO SCH ×2 (08:27→20:22)
[2017-02-18] MEDS: LOSARTAN 50 MG TAB PO SCH (08:27)
[2017-02-18] MEDS: NYSTATIN 100,000 UNIT/ML SUSP 500,000 UNIT/5 ML CUP PO SCH ×4 (08:27→20:22)
[2017-02-18] MEDS: DILTIAZEM ORAL 60 MG TAB PO SCH ×3 (08:27→20:22)
[2017-02-18] MEDS: APIXABAN 5 MG TAB PO SCH ×2 (08:27→20:22)
[2017-02-18] MEDS: POLYETHYLENE GLYCOL 3350 17 GM POWD.PACK PO SCH (08:28)
[2017-02-18] MEDS: predniSONE 20 MG TAB PO SCH (08:28)
--- NOTE | 2017-02-18 10:59 | PN ---
PROGRESS NOTE Mrs. Simon is a 76-year-old female who has symptoms of paroxysmal atrial fibrillation, history of pulmonary fibrosis. She continues to be in sinus mechanism. This morning she continues to be dyspneic with activity. She has no chest pain. No dizziness. No palpitation. She denies any nausea. She has continued to be on oxygen. She has continued to be on flecainide 50 mg twice a day, Eliquis 5 mg twice a day, diltiazem 60 mg 3 times a day. PHYSICAL EXAMINATION: Blood pressure 141/70 with a heart rate in 60. LUNGS: Dry crackles. No wheezes. Heart regular rate and rhythm, S1, S2. No S3. No rub appreciated. ABDOMEN: Soft, nontender. No organomegaly. EXTREMITIES: No edema. IMPRESSION: 1. Paroxysmal atrial fibrillation, remains in sinus mechanism. 2. Pulmonary fibrosis. 3. Chronic obstructive pulmonary disease. RECOMMENDATION: From the cardiac standpoint, we will continue present therapy. I reviewed the results of her EKG, revealed no evidence of prolongation of her QT interval. Her renal function and potassium are stable. I will increase her activity. Repeat her EKG tomorrow. If she is stable, she should be able to be discharged home from the cardiac standpoint. MMODL / IJN: [id number] /
[2017-02-18 11:46] LABS: Glucose,Whole Blood 120 mg/dL (75-99)
--- NOTE | 2017-02-18 11:50 | P.PN ---
Subjective Progress Note Date: 02/18/17 Progress note dated 02/18/2017 The patient seemed be doing better. Seems to have one problem after another. Most recently he was atrial fibrillation with rapid ventricular response. She did convert back to normal sinus rhythm. She was maintained on Cardizem and flecainide. This was added by cardiology. She is on blood thinner. No shortness of breath. No cough no congestion. Hopefully she'll be able to get out here soon. Her O2 sat is down to 3 L/m by nasal cannula. Objective - Vital Signs Vital signs: Vital Signs Temp 98.0 F 02/18/17 04:00 Pulse 69 02/18/17 07:43 Resp 16 02/18/17 07:43 BP 141/74 02/18/17 07:33 Pulse Ox 94 L 02/18/17 07:33 Intake & Output 02/17/17 02/18/17 02/18/17 18:59 06:59 18:59 Intake Total 634 180 Output Total 1100 600 Balance -466 -600 180 Weight 77 kg Intake: Intake, IV Titration 0 Amount Diltiazem 125 mg In 0 Sodium Chloride 0.9% 100 ml @ 5 MG/HR 5 mls/hr IV .Q24H [facility] Rx#:[id number] Oral 634 180 Output: Urine 1100 600 Other: Voiding Method Bedside Commode # Bowel Movements 1 - Exam No acute distress, oriented 3. Nasal O2 in place HEENT examination is unremarkable. Mucous membranes are moist. No oral lesions. Neck supple. Full range of motion. No adenopathy or thyromegaly. Neck veins are flat. Cardiovascular examination reveals regular rhythm rate. S1-S2 normal. No S3 or S4. No discernible murmur. Lungs reveal bibasilar crackles. Breath sounds are diminished. No wheezes or rhonchi. Breath sounds are equal bilaterally. Abdomen soft bowel sounds are heard. No masses or tenderness. Extremities are intact. No cyanosis clubbing or edema. Skin is without rash or lesion. Neurologic examination is brief but nonfocal. - Labs CBC & Chem 7: 02/18/17 05:50 02/18/17 05:50 Labs: Abnormal Lab Results - Last 24 Hours (Table) 02/17/17 02/17/17 02/18/17 Range/Units 11:41 16:58 05:50 MCV (80.0-100.0) fL Lymphocytes # (1.0-4.8) k/uL Sodium 133 L (137-145) mmol/L Chloride 97 L (98-107) mmol/L Carbon Dioxide 32 H (22-30) mmol/L POC Glucose (mg/dL) 121 H 119 H (75-99) mg/dL Total Protein 5.2 L (6.3-8.2) g/dL Albumin 3.0 L (3.5-5.0) g/dL 02/18/17 02/18/17 Range/Units 05:50 11:41 MCV 102.0 H (80.0-100.0) fL Lymphocytes # 0.4 L (1.0-4.8) k/uL Sodium (137-145) mmol/L Chloride (98-107) mmol/L Carbon Dioxide (22-30) mmol/L POC Glucose (mg/dL) 120 H (75-99) mg/dL Total Protein (6.3-8.2) g/dL Albumin (3.5-5.0) g/dL Assessment and Plan (1) Bronchiectasis Status: Acute (2) Radiation pneumonitis Status: Acute (3) Hypoxemia Status: Acute (4) Atrial fibrillation Status: Acute (5) Acute exacerbation of chronic obstructive airways disease Status: Acute (6) Pulmonary fibrosis Status: Acute (7) Pneumonia Status: Acute Plan: Plan dated 02/18/2017 From the pulmonary standpoint she is back to her baseline. We discontinued all bronchodilators given the fact of the development of atrial fibrillation with Rapid ventricular response. The patient knows that she can get it nebulizer treatment if she asked for one but she will not get them on a regular basis. Seems like her atrial fibrillation is now under control. She is back in normal sinus rhythm. We'll continue to follow. Prognosis is guarded. Time with Patient: Less than 30
[2017-02-18] MEDS: LACTOBACILLUS ACIDOPH & BULGAR 1 EACH PACKET PO SCH (12:10)
[2017-02-18 17:05] LABS: Glucose,Whole Blood 111 mg/dL (75-99)
--- NOTE | 2017-02-18 17:48 | P.PN ---
Subjective Progress Note Date: 02/18/17 75-year-old female, patient of Dr. Rivero with a history of a well- established idiopathic pulmonary fibrosis on Esbriet,started on a new anti- fibrotic drug by Dr. 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 Patient presented to the emergency department at [facility] complaining of back pain between her shoulder blade area along with significant shortness of breath cough and wheezes and worsening symptoms compared to her baseline. Patient also developed to have fever, chills and mildly productive cough. She was out of breath and had an episode of gasping for past couple of days patient is at 2 L of oxygen at home is currently requiring 2.5 L. She does have some discomfort but it's related to her breathing but denies any chest pain. Patient denies any sick contact or recent travel. She is nauseous but denies any episode of vomiting, decreased appetite and generalized weakness. She has not noticed that her ankles are more swollen than before. Patient denies any exposure to TB, birds or bats CT was ordered in the ED to rule out pulmonary embolism which was negative. Patient does have a pleural mass but no significant vascular congestion or consolidation seen. 02/08: Patient states she is very tired today and not sleep well last night. She has ambulated to the bathroom abases herself due to shortness of breath with only a few steps. She is normally on home O2 at 2 L nasal cannula. By Dr. Rnadhawa. 02/09: Last evening, patient developed increasing shortness of breath and atrial fibrillation was transferred to the selective care unit. She was placed on heparin drip and Cardizem drip and subsequently converted to normal sinus rhythm. Patient is still requiring oxygen at 8 L. One dose of IV Lasix given. Repeat chest x-ray ordered that showed stable findings with bilateral upper lobe infiltrate and nodularity with findings suggestive of pulmonary fibrosis.. 02/10: Patient was evaluated today. She was noted to have some atrial fibrillation yesterday, she is currently maintaining sinus rhythm. She is consulted by cardiology, continue current dose of atenolol, and Eliquis 5 mg by mouth twice a day added. She denies any chest pain or palpitations. She continues to require 6L via nasal cannula and is maintaining an O2 saturation of 91%. Pulmonology is on consult. 02/11: Patient was noted to be sitting up in bed resting comfortably, in no acute distress. She reports breathing is a lot better and she feels well, although she was on 6 L nasal cannula, oxygen decreased to 5 L, O2 saturation 97 %. We'll continue to try to wean down oxygen today. ABG ordered, respiratory culture sent this morning. Vancomycin discontinued. She has not had any further episodes of atrial fibrillation, she remains in sinus rhythm. 02/12: Patient continues to have shortness of breath and is requiring more oxygen. She is currently on high flow O2 at 6 L and pulse ox 93%. Solu-Medrol changed to oral prednisone for tomorrow. Lasix IV increase to 40 mg daily. Await further recommendations from Dr. Michel. 02/13: Patient is currently on 5 L and discussed briefly with patient that she needs to be prepared for worsening pulmonary fibrosis and this may be her new normal and will need to increase her home O2 use. Sputum is positive for Sherri. Blood culture appears to be contamination. The patient will be transferred to the [facility] floor. 02/14: Patient states that her blood sugar dropped during the night and she had to have gram crackers with peanut butter which caused heartburn and this causes her to have increased anxiety and shortness of breath. Protonix has been added. She also states she has decreased appetite. Patient states that she is a little more short of breath but is talking today in full sentences and appears to be comfortable. She denies having any dizziness but does have weakness. Pulse ox is currently 93% on 5 L. Prednisone decreased to 30 mg daily. She is complaining of soreness in the shoulder blade area from laying in bed. PEDRO powers also added. Physical therapy and occupational therapy recommended home with homecare. 02/15: Patient has been seen by Dr. Mac this morning cleared for discharge. Prednisone will be decreased to 20 mg daily and one dose of Lasix will be given this morning IV. Nursing to try and wean her down to 3 L nasal cannula. Awaiting insurance authorization for possible subacute rehab. Patient will be ready for discharge tomorrow. 02/16: Patient developed atrial fibrillation with rapid ventricular response and again was transferred up to selective care unit. She is on eliquis. We have discontinued atenolol and started Cardizem orally 60 mg 3 times daily. However medicine has stopped nebulizer treatments. Pulse ox is now 97% on 3 L nasal cannula. Prednisone is down to 20 mg daily. Patient does state that she had lightheadedness yesterday after IV Lasix. This was subsequently discontinued. Patient states she has had a couple often bowel movements but not diarrhea but her abdomen feels full. Abdominal x-rays ordered. 02/17: Patient is feeling better today she denies any chest pain, or shortness breath, she was started history and Cardizem 60 mg orally 3 times every day, she is less short of breath, she will be staying the hospital for another 24 hours hopefully she will be discharged home on Sunday morning. 02/18: patient is sitting up in bed, feels better , currently in sinus rythm with no chest pain , however continues to have extreme dyspnea with minimal activity, will be reevaluated by PT in AM for possible sub-acute rehab at [facility]. Objective - Vital Signs Vital signs: Vital Signs Temp 98.0 F 02/18/17 04:00 Pulse 69 02/18/17 07:43 Resp 16 02/18/17 07:43 BP 141/74 02/18/17 07:33 Pulse Ox 94 L 02/18/17 07:33 Intake & Output 02/17/17 02/18/17 02/18/17 18:59 06:59 18:59 Intake Total 634 Output Total 1100 600 Balance -466 -600 Weight 77 kg Intake: Intake, IV Titration 0 Amount Diltiazem 125 mg In 0 Sodium Chloride 0.9% 100 ml @ 5 MG/HR 5 mls/hr IV .Q24H [facility] Rx#:[id number] Oral 634 Output: Urine 1100 600 Other: Voiding Method Bedside Commode # Bowel Movements 1 - Exam General appearance: average body habitus, no acute distress - EENT Eyes: EOMI, PERRLA, no photophobia ENT: normal oropharynx Ears: bilateral: normal - Neck Carotids: bilateral: upstroke normal - Respiratory Respiratory: bilateral: rales, rhonchi, wheezing, negative: CTA, dullness, prolonged expiration - Cardiovascular Rhythm: Regular Heart sounds: normal: S1, S2 Abnormal Heart Sounds: no systolic murmur, no diastolic murmur - Gastrointestinal General gastrointestinal: normal bowel sounds, soft, no tenderness - Integumentary Integumentary: no flushed, no jaundiced - Neurologic Neurologic: CNII-XII intact - Musculoskeletal Musculoskeletal: gait normal, generalized weakness, no strength equal bilaterally - Psychiatric Psychiatric: A&O x's 3, appropriate affect - Labs CBC & Chem 7: 02/18/17 05:50 02/18/17 05:50 Labs: Abnormal Lab Results - Last 24 Hours (Table) 02/17/17 02/17/17 02/17/17 Range/Units 10:25 11:41 16:58 MCV (80.0-100.0) fL Lymphocytes # (1.0-4.8) k/uL Sodium 132 L (137-145) mmol/L Chloride 93 L (98-107) mmol/L Carbon Dioxide (22-30) mmol/L Glucose 142 H (74-99) mg/dL POC Glucose (mg/dL) 121 H 119 H (75-99) mg/dL Total Protein (6.3-8.2) g/dL Albumin (3.5-5.0) g/dL 02/18/17 02/18/17 Range/Units 05:50 05:50 MCV 102.0 H (80.0-100.0) fL Lymphocytes # 0.4 L (1.0-4.8) k/uL Sodium 133 L (137-145) mmol/L Chloride 97 L (98-107) mmol/L Carbon Dioxide 32 H (22-30) mmol/L Glucose (74-99) mg/dL POC Glucose (mg/dL) (75-99) mg/dL Total Protein 5.2 L (6.3-8.2) g/dL Albumin 3.0 L (3.5-5.0) g/dL Assessment and Plan Plan: Assessment and plan: 1 acute on chronic hypoxic respiratory failure: Combination of pulmonary fibrosis, infection, COPD exacerbation and possible metastasis. 2 COPD exacerbation: With patient's current symptoms patient will be on Solu- Medrol to prednisone, DuoNeb, Pulmicort and will consult pulmonary. 3 advance pulmonary fibrosis: Long-standing has been seen pulmonary for long time continue current pulmonary medication at this point. 4 febrile illness likley secondary to severe bronchitis - continue Rocephin and azithromycin 5 CAD: No chest pain or angina patient remain on Tenormin and losartan resume medication. 6 hyperlipidemia: Not on any medication currently. 7 arrhythmia: Has been doing very well on atenolol. 8 severe GERD/GI prophylaxis: Patient will be on Nexium 40 mg daily. 9 new onset atrial fibrillation, paroxysmal. Continue patient on Cardizem 60 mg orally 3 times every day, Eliquis 5 mg orally twice every day, propafenone 50 mg orally twice every day, cariology is following, patient will be discharged home in the next 24-48 hours if okay with cardiology.. DVT prophylaxis: Patient on Eliquis. CODE STATUS: Full code. Discharge plan: [facility] versus home on Sunday.
[2017-02-18] MEDS: HYDROcodone/APAP 5-325MG 1 EACH TAB PO PRN (20:21)
[2017-02-18 20:48] LABS: Glucose,Whole Blood 136 mg/dL (75-99)
[2017-02-19 06:02] LABS: Glucose,Whole Blood 89 mg/dL (75-99)
[2017-02-19 06:32] LABS: Basophils % (A) 0 %; CHCM 32.6; Eosinophils # (A) 0.1 k/uL (0-0.7); Eosinophils % (A) 1 %; HDW 2.58; HGB 12.6 gm/dL (11.4-16.0); Luc # (Auto) 0.11; Luc % (Auto) 1; Lymphocytes # (A) 0.4 k/uL (1.0-4.8); Lymphocytes % (A) 4 %; MCH 32.1 pg (25.0-35.0); MCHC 31.5 g/dL (31.0-37.0); MCV 101.6 fL (80.0-100.0); Macrocytosis Slight; Monocytes # (A) 0.5 k/uL (0-1.0); Monocytes % (A) 4 %; Neutrophils % (A) 90 %; RBC 3.94 m/uL (3.80-5.40); RDW 12.9 % (11.5-15.5); WBC 11.1 k/uL (3.8-10.6); WBC (Perox) 11.98
[2017-02-19 06:39] LABS: ALT 45 U/L (9-52); AST 21 U/L (14-36); Alkaline Phosphatase 56 U/L (38-126); Anion Gap 9 mmol/L; Blood Urea Nitrogen 11 mg/dL (7-17); Calcium 9.4 mg/dL (8.4-10.2); Carbon Dioxide 28 mmol/L (22-30); Chloride 96 mmol/L (98-107); Glucose 87 mg/dL (74-99); Non-African American GFR(MDRD) >60 (>60 ml/min/1.73 sqM); Potassium 4.3 mmol/L (3.5-5.1); Sodium 133 mmol/L (137-145); Total Bilirubin 0.6 mg/dL (0.2-1.3); Total Protein 5.8 g/dL (6.3-8.2)
[2017-02-19] MEDS: PIRFENIDONE 267 MG PO SCH ×2 (07:34→12:08)
[2017-02-19] MEDS: APIXABAN 5 MG TAB PO SCH (07:34)
[2017-02-19] MEDS: DILTIAZEM ORAL 60 MG TAB PO SCH (07:34)
[2017-02-19] MEDS: LOSARTAN 50 MG TAB PO SCH (07:34)
[2017-02-19] MEDS: FLECAINIDE 50 MG TAB PO SCH (07:34)
[2017-02-19] MEDS: NYSTATIN 100,000 UNIT/ML SUSP 500,000 UNIT/5 ML CUP PO SCH ×2 (07:35→12:09)
[2017-02-19] MEDS: PANTOPRAZOLE 40 MG TABLET PO SCH (07:35)
[2017-02-19] MEDS: predniSONE 20 MG TAB PO SCH (07:36)
[2017-02-19] MEDS: POLYETHYLENE GLYCOL 3350 17 GM POWD.PACK PO SCH (07:37)
[2017-02-19 07:52] VITALS: RESP 19; TEMP 96.7
--- NOTE | 2017-02-19 09:06 | P.DS ---
Providers Date of admission: 02/07/17 11:44 Attending physician: Yuri Mcmullen MD Consults: 02/07/17 11:44 Consult Physician Routine Consulting Provider: Arlene Randhawa Consult Reason/Comments: dyspnea Do you want consulting provider notified?: Yes 02/16/17 09:56 Consult Physician Routine Consulting Provider: Nicolas Payan Consult Reason/Comments: afib Do you want consulting provider notified?: Already Contacted [facility] Course: 75-year-old female, patient of Dr. Rivero with a history of a well- established idiopathic pulmonary fibrosis on Esbriet,started on a new anti- fibrotic drug by Dr. 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 Patient presented to the emergency department at [facility] complaining of back pain between her shoulder blade area along with significant shortness of breath cough and wheezes and worsening symptoms compared to her baseline. Patient also developed to have fever, chills and mildly productive cough. She was out of breath and had an episode of gasping for past couple of days patient is at 2 L of oxygen at home is currently requiring 2.5 L. She does have some discomfort but it's related to her breathing but denies any chest pain. Patient denies any sick contact or recent travel. She is nauseous but denies any episode of vomiting, decreased appetite and generalized weakness. She has not noticed that her ankles are more swollen than before. Patient denies any exposure to TB, birds or bats CT was ordered in the ED to rule out pulmonary embolism which was negative. Patient does have a pleural mass but no significant vascular congestion or consolidation seen. 02/08: Patient states she is very tired today and not sleep well last night. She has ambulated to the bathroom abases herself due to shortness of breath with only a few steps. She is normally on home O2 at 2 L nasal cannula. By Dr. Randhawa. 02/09: Last evening, patient developed increasing shortness of breath and atrial fibrillation was transferred to the selective care unit. She was placed on heparin drip and Cardizem drip and subsequently converted to normal sinus rhythm. Patient is still requiring oxygen at 8 L. One dose of IV Lasix given. Repeat chest x-ray ordered that showed stable findings with bilateral upper lobe infiltrate and nodularity with findings suggestive of pulmonary fibrosis.. 02/10: Patient was evaluated today. She was noted to have some atrial fibrillation yesterday, she is currently maintaining sinus rhythm. She is consulted by cardiology, continue current dose of atenolol, and Eliquis 5 mg by mouth twice a day added. She denies any chest pain or palpitations. She continues to require 6L via nasal cannula and is maintaining an O2 saturation of 91%. Pulmonology is on consult. 02/11: Patient was noted to be sitting up in bed resting comfortably, in no acute distress. She reports breathing is a lot better and she feels well, although she was on 6 L nasal cannula, oxygen decreased to 5 L, O2 saturation 97 %. We'll continue to try to wean down oxygen today. ABG ordered, respiratory culture sent this morning. Vancomycin discontinued. She has not had any further episodes of atrial fibrillation, she remains in sinus rhythm. 02/12: Patient continues to have shortness of breath and is requiring more oxygen. She is currently on high flow O2 at 6 L and pulse ox 93%. Solu-Medrol changed to oral prednisone for tomorrow. Lasix IV increase to 40 mg daily. Await further recommendations from Dr. Michel. 02/13: Patient is currently on 5 L and discussed briefly with patient that she needs to be prepared for worsening pulmonary fibrosis and this may be her new normal and will need to increase her home O2 use. Sputum is positive for Sherri. Blood culture appears to be contamination. The [facility]. 02/14: Patient states that her blood sugar dropped during the night and she had to have gram crackers with peanut butter which caused heartburn and this causes her to have increased anxiety and shortness of breath. Protonix has been added. She also states she has decreased appetite. Patient states that she is a little more short of breath but is talking today in full sentences and appears to be comfortable. She denies having any dizziness but does have weakness. Pulse ox is currently 93% on 5 L. Prednisone decreased to 30 mg daily. She is complaining of soreness in the shoulder blade area from laying in bed. PEDRO hose also added. Physical therapy and occupational therapy recommended home with homecare. 02/15: Patient has been seen by Dr. Mac this morning cleared for discharge. Prednisone will be decreased to 20 mg daily and one dose of Lasix will be given this morning IV. Nursing to try and wean her down to 3 L nasal cannula. Awaiting insurance authorization for possible subacute rehab. Patient will be ready for discharge tomorrow. 02/16: Patient developed atrial fibrillation with rapid ventricular response and again was transferred up to selective care unit. She is on eliquis. We have discontinued atenolol and started Cardizem orally 60 mg 3 times daily. However medicine has stopped nebulizer treatments. Pulse ox is now 97% on 3 L nasal cannula. Prednisone is down to 20 mg daily. Patient does state that she had lightheadedness yesterday after IV Lasix. This was subsequently discontinued. Patient states she has had a couple often bowel movements but not diarrhea but her abdomen feels full. Abdominal x-rays ordered. 02/17: Patient is feeling better today she denies any chest pain, or shortness breath, she was started history and Cardizem 60 mg orally 3 times every day, she is less short of breath, she will be staying the hospital for another 24 hours hopefully she will be discharged home on Sunday. 02/18: patient is sitting up in bed, feels better , currently in sinus rythm with no chest pain , however continues to have extreme dyspnea with minimal activity, will be reevaluated by PT in AM for possible sub-acute rehab at [facility]. 02/19: Patient remains in sinus rhythm on Cardizem and flecainide. She has been followed by Dr. Arias and Dr. Michel. Pulse ox is 96% on 3 L nasal cannula She has been cleared for discharge by consultants. She is complaining of feeling hot and weak after taking her medications this morning. Possibly this is due to flecainide but will be continued and patient is in agreement. Patient will be discharged today in stable condition. Discharge diagnoses: 1 acute on chronic hypoxic respiratory failure: Combination of pulmonary fibrosis, infection, COPD exacerbation 2 COPD exacerbation 3 advance pulmonary fibrosis 4 febrile illness likley secondary to severe bronchitis 5 CAD 6 hyperlipidemia 7 paroxysmal atrial fibrillation with episodes of A. fib with RVR 8 GERD Discharge plan: [facility] under the care of Dr. Ruiz Impression and plan of care have been directed as dictated by the signing physician. Ratna Arredondo nurse practitioner acting as scribe for signing physician. Cc: Dr. Higinio Oro Patient Condition at Discharge: Good Plan - Discharge Summary New Discharge Prescriptions: New Apixaban [Eliquis] 5 mg PO BID tab Diltiazem Oral [Cardizem*] 60 mg PO TID tab Flecainide [Tambocor] 50 mg PO Q12HR tab Nitroglycerin Sl Tabs [Nitrostat] 0.4 mg SUBLINGUAL Q5M PRN tab PRN Reason: Chest Pain Nystatin 100,000 Unit/ml Susp [Mycostatin Oral Susp] 500,000 unit PO QID dose predniSONE 0 mg PO DIRECTED #30 tab Continue Losartan Potassium [Cozaar] 100 mg PO DAILY L.acidoph,Paracasei, B.lactis [Probiotic] 1 tab PO DAILY@1200 Ranitidine HCl [Zantac] 300 mg PO BID Pirfenidone [Esbriet] 267 mg PO TID Polyethylene Glycol 3350 [Miralax] 17 gm PO DAILY HYDROcodone/APAP 5-325MG [Arco 5-325] 1 tab PO Q6H PRN #90 PRN Reason: Pain Discontinued Atenolol [Tenormin] 25 mg PO BID predniSONE 5 mg PO DAILY Discharge Medication List Losartan Potassium [Cozaar] 100 mg PO DAILY 09/25/15 [History] L.acidoph,Paracasei, B.lactis [Probiotic] 1 tab PO DAILY@1200 08/03/16 [History] Ranitidine HCl [Zantac] 300 mg PO BID 08/14/16 [History] Pirfenidone [Esbriet] 267 mg PO TID 08/23/16 [History] Polyethylene Glycol 3350 [Miralax] 17 gm PO DAILY 02/17/17 [History] Apixaban [Eliquis] 5 mg PO BID tab 02/19/17 [Rx] Diltiazem Oral [Cardizem*] 60 mg PO TID tab 02/19/17 [Rx] Flecainide [Tambocor] 50 mg PO Q12HR tab 02/19/17 [Rx] HYDROcodone/APAP 5-325MG [Arco 5-325] 1 tab PO Q6H PRN #90 02/19/17 [Rx] Nitroglycerin Sl Tabs [Nitrostat] 0.4 mg SUBLINGUAL Q5M PRN tab 02/19/17 [Rx] Nystatin 100,000 Unit/ml Susp [Mycostatin Oral Susp] 500,000 unit PO QID dose 02/19/17 [Rx] predniSONE 0 mg PO DIRECTED #30 tab 02/19/17 [Rx] Follow up Appointment(s)/Referral(s): [facility] [Provider Group] - 2 Weeks Arlene Randhawa MD [STAFF PHYSICIAN] - 02/19/17 2:15 pm (Review of next week or so to) Higinio Oro MD [Primary Care Provider] - 1 Week Discharge Disposition: TRANSFER TO SNF/ECF
--- NOTE | 2017-02-19 11:21 | PN ---
PROGRESS NOTE Mrs. Simon is a 76-year-old female with history of pulmonary fibrosis who was having episode of paroxysmal atrial fibrillation. She feels tired this morning, but she has continued to be in sinus mechanism with no evidence of tachy or luis arrhythmia. She ambulated yesterday, had some dyspnea on exertion, which is chronic related to her pulmonary fibrosis. She continues to use oxygen. She continues to be on flecainide 50 mg twice a day, Eliquis 5 mg twice a day, diltiazem 60 mg 3 times a day, losartan 100 mg daily. PHYSICAL EXAMINATION: Blood pressure 131/60 with a heart rate in the 70s. LUNGS: With scattered dry crackles. No wheezes. HEART; Regular rate and rhythm. S1, S2. No S3. No rub. ABDOMEN: Soft, nontender. EXTREMITIES: No edema. LAB DATA: Lab data revealed BUN and creatinine of 11 and 0.7. Potassium 4.3. Hemoglobin of 12.9. EKG reveals atrial fibrillation with normal QT intervals. IMPRESSION: 1. Paroxysmal atrial fibrillation, remains in sinus mechanism. 2. Pulmonary fibrosis. 3. Radiation pneumonitis. 4. History of hypertension. 5. History of chronic obstructive lung disease. RECOMMENDATION: From the cardiac standpoint, she is stable. She will continue present therapy. I would expect she should be able to be discharged home soon and follow as an outpatient with Dr. Jo Bhatti. IGNACIA / DELIA: [phone] /
[2017-02-19 11:36] LABS: Glucose,Whole Blood 108 mg/dL (75-99)
[2017-02-19] MEDS: HYDROcodone/APAP 5-325MG 1 EACH TAB PO PRN (12:08)
[2017-02-19] MEDS: LACTOBACILLUS ACIDOPH & BULGAR 1 EACH PACKET PO SCH (12:09)
[2017-02-19 12:37] VITALS: BP 132/60
[2017-02-19 15:41] VITALS: PULSE 125
== END 2017-02-19 14:11 | DRG 196 ==
LOC: EC 08:40 → 5MS5E 11:44 → 6SEL 02-08 22:02 → 5MS5E 02-13 20:50 → 6SEL 02-13 21:01 → 5MS5E 02-13 21:05 → 6SEL 02-16 10:30
PROVIDERS: ADMIT Internal Medicine; ATTEND Internal Medicine
DX: J84.112 Idiopathic pulmonary fibrosis (principal); J96.21 Acute and chronic respiratory failure with hypoxia; J18.9 Pneumonia, unspecified organism; I48.0 Paroxysmal atrial fibrillation; Z99.81 Dependence on supplemental oxygen; J44.0 Chronic obstructive pulmonary disease with (acute) lower respiratory infection; J44.1 Chronic obstructive pulmonary disease with (acute) exacerbation; I07.1 Rheumatic tricuspid insufficiency; I10 Essential (primary) hypertension; F41.9 Anxiety disorder, unspecified; I25.10 Atherosclerotic heart disease of native coronary artery without angina pectoris; E78.5 Hyperlipidemia, unspecified; K21.9 Gastro-esophageal reflux disease without esophagitis; Z96.1 Presence of intraocular lens; M19.90 Unspecified osteoarthritis, unspecified site; R91.8 Other nonspecific abnormal finding of lung field; R11.0 Nausea; R00.0 Tachycardia, unspecified; R53.1 Weakness; Z88.1 Allergy status to other antibiotic agents; Z91.040 Latex allergy status; Z88.2 Allergy status to sulfonamides; Z91.048 Other nonmedicinal substance allergy status; Z79.891 Long term (current) use of opiate analgesic; Z79.52 Long term (current) use of systemic steroids; Z79.899 Other long term (current) drug therapy; Z82.49 Family history of ischemic heart disease and other diseases of the circulatory system; Z79.01 Long term (current) use of anticoagulants; Z87.891 Personal history of nicotine dependence; Z90.710 Acquired absence of both cervix and uterus; Z98.41 Cataract extraction status, right eye; Z98.42 Cataract extraction status, left eye; Z92.3 Personal history of irradiation; Y84.2 Radiological procedure and radiotherapy as the cause of abnormal reaction of the patient, or of later complication, without mention of misadventure at the time of the procedure
CPT/HCPCS: 36415; 36600; 71010; 71020; 71275; 74000; 80048; 80053; 82550; 82553; 82805; 83735; 83880; 84436; 84439; 84443; 84481; 84484; 85025; 85610; 85730; 87040; 87070; 87077; 87186; 87205; 93005; 93306; 94640; 94760; 96374; 99285

== ENCOUNTER 2017-02-26 14:41 | Inpatient (IN) | payer MEDICAID ==
[2017-02-26] MEDS ORDERED: ACETAMINOPHEN SUPPOSITORY 650 MG SUPP RECTAL PRN (15:17)
[2017-02-26] MEDS ORDERED: ONDANSETRON 4 MG/2 ML VIAL IVP PRN (15:18)
[2017-02-26] MEDS ORDERED: BISACODYL 10 MG SUPP RECTAL PRN (15:19)
[2017-02-26] MEDS ORDERED: SCOPOLAMINE 1.5MG/72HR PATCH TRANSDERM SCH (15:30)
[2017-02-26] MEDS: MORPHINE SULFATE (100 MG/2 ML) 100 MG in SODIUM CHLORIDE 0.9% 100 ML IV SCH (16:09)
[2017-02-26] MEDS: LORazepam 2 MG/ML INJ IV PRN (22:36)
[2017-02-26] MEDS: ATROPINE OPHTH SOLN 1% 5ML BTL SUBLINGUAL PRN (22:40)
[2017-02-27] MEDS: LORazepam 2 MG/ML INJ IV PRN ×2 (00:55→11:21)
[2017-02-27] MEDS: ATROPINE OPHTH SOLN 1% 5ML BTL SUBLINGUAL PRN (02:04)
[2017-02-27] MEDS: MORPHINE SULFATE (100 MG/2 ML) 100 MG in SODIUM CHLORIDE 0.9% 100 ML IV SCH ×3 (03:44→21:19)
--- NOTE | 2017-02-27 10:26 | P.HPIM ---
History of Present Illness H&P Date: 02/27/17 HISTORY AND PHYSICAL AND DISCHARGE SUMMARY: 75-year-old female, patient of Dr. Rivero with a history of a well- established idiopathic pulmonary fibrosis on Esbriet, recently started on a new anti-fibrotic drug by Dr. Prieto with 5 mg of prednisone 3 times a day, COPD, left upper lobe radiation secondary to pleural mass, CAD, arrhythmia, hypertension and hyperlipidemia. Patient was recently hospitalized from February 07 through February 16 and was discharged to [facility] for rehab. Patient was treated for acute on chronic hypoxic respiratory failure secondary to pulmonary fibrosis, COPD exacerbation. Patient's breathing status continued to decline at [facility] and she was transferred back to [facility] emergency roebling where she was admitted into the intensive care unit and placed on BiPAP. Patient states that she had a bad night and continues to have a cough. She states that she is tired of treatment and working so hard. She is agreeable to hospice care. Patient will be transferred to the [facility] floor and hospice consult requested. Patient has been made GIP under [facility] hospice she is currently on a morphine drip and appears to be comfortable. and 2 daughters are at the bedside and have been updated. Patient on the evening of February 27. Please see nursing documentation for details. Review of Systems ROS unobtainable: due to mental status Past Medical History Past Medical History: COPD, GERD/Reflux, Hypertension, Osteoarthritis (OA), Respiratory Disorder Additional Past Medical History / Comment(s): Idiopathic pulmonary fibrosis, lung masses and left upper lobe status post radiation therapy, chronic hypoxic respiratory failure, chronic atrial fibrillation, COPD/correction bronchiectasis related to pulmonary fibrosis, hypertension, acid reflux, hyperlipidemia, coronary artery disease, osteoarthritis. History of Any Multi-Drug Resistant Organisms: None Reported Past Surgical History: Cholecystectomy, EPS, Heart Catheterization, Hysterectomy Additional Past Surgical History / Comment(s): 2 BRONCHOSCOPIES W/ BX, LEFT LUNG CT GUIDED NEEDLE BX-PT STATES ALL RESULTS BENIGN, NASAL POLYPS REMOVED- BENIGN, ESSENCE CATARACTS/LENS IMPLANTS, EGD/COLONOSCOPY/POLYPECTOMY-BENIGN, HYSTERECTOMY AGE 41 STILL HAS RT OVARY, EP and possible ablation for atrial fibrillation Past Anesthesia/Blood Transfusion Reactions: No Reported Reaction Past Psychological History: No Psychological Hx Reported Additional Psychological History / Comment(s): PT LIVES WITH SPOUSE OF 55 YRS, IS INDEPENDANT, HAS TOTAL OF 4 STEPS TO GET INTO HOME. NO PETS. HAS HOME 02. NO OUTSIDE SERVICES. Smoking Status: Unknown if ever smoked Past Alcohol Use History: None Reported Additional Past Alcohol Use History / Comment(s): smoked 50 years 1ppd quit Past Drug Use History: None Reported Additional Drug Use History / Comment(s): Patient wears 2 L of oxygen, lives with her is for 55 years, has 4 children one son - Past Family History Daughter(s) Family Medical History: Blood Disorder, Deep Vein Thrombosis (DVT) Additional Family Medical History / Comment(s): DAUGHTER HAS Factor V. GRANDAUGHTER HAS FACTOR V WELL Father Additional Family Medical History / Comment(s): VALVE REPLACEMENT. FATHER LIVED TO BE 93 YRS OLD. Son(s) Family Medical History: Hypertension Mother Family Medical History: No Reported History Medications and Allergies Home Medications Medication Instructions Recorded Confirmed Type Losartan Potassium [Cozaar] 100 mg PO DAILY 09/25/15 02/26/17 History L.acidoph,Paracasei, B.lactis 1 tab PO DAILY@1200 08/03/16 02/26/17 History [Probiotic] Ranitidine HCl [Zantac] 300 mg PO BID 08/14/16 02/26/17 History Pirfenidone [Esbriet] 267 mg PO AC-TID 08/23/16 02/26/17 History Polyethylene Glycol 3350 [Miralax] 17 gm PO DAILY 02/17/17 02/26/17 History Apixaban [Eliquis] 5 mg PO BID tab 02/19/17 02/26/17 Rx Diltiazem Oral [Cardizem*] 60 mg PO TID tab 02/19/17 02/26/17 Rx Flecainide [Tambocor] 50 mg PO Q12HR tab 02/19/17 02/26/17 Rx HYDROcodone/APAP 5-325MG [[place] 1 tab PO Q6H PRN #90 02/19/17 02/26/17 Rx 5-325] Nitroglycerin Sl Tabs [Nitrostat] 0.4 mg SUBLINGUAL Q5M PRN tab 02/19/17 Rx Nystatin 100,000 Unit/ml Susp 500,000 unit PO QID dose 02/19/17 02/26/17 Rx [Mycostatin Oral Susp] ALPRAZolam [Xanax] 0.25 mg PO BID 02/24/17 02/26/17 History Furosemide [Lasix] 40 mg PO DAILY 02/24/17 02/26/17 History Potassium Chloride ER [K-Dur 10] 10 meq PO DAILY@0659 02/24/17 02/26/17 History Potassium Chloride ER [K-Dur 10] 20 meq PO DAILY@0900 02/24/17 02/26/17 History Sennosides-Docusate Sodium 2 tab PO HS 02/24/17 02/26/17 History [Senokot-S] predniSONE 5 mg PO DAILY 02/24/17 02/26/17 History Allergies Allergy/AdvReac Type Severity Reaction Status Date / Time latex Allergy Rash/Hives Verified 02/26/17 16:36 levofloxacin [From Levaquin] Allergy Nausea & Verified 02/26/17 16:36 Vomiting Sulfa (Sulfonamide Allergy Rash/Hives Verified 02/26/17 16:36 Antibiotics) adhesive AdvReac Rash/Hives Verified 02/26/17 16:36 Physical Exam Vitals: Vital Signs Resp 02/27/17 03:45 5 L 02/27/17 00:00 8 L 02/26/17 23:11 8 L Intake and Output 02/26/17 02/27/17 02/27/17 22:59 06:59 14:59 Intake Total 16.507 39.882 Balance 16.507 39.882 Intake: Intake, IV Titration 16.507 39.882 Amount Morphine Sulfate (100 mg/ 16.507 39.882 2 ml) 100 mg In Sodium Chloride 0.9% 100 ml @ 1 MG/HR 1.02 mls/hr IV . Q24H [facility] Rx#:[id number] Oral 0 0 Other: Voiding Method Indwelling Catheter Gen: This is a 76-year-old female. She is resting with her eyes closed. No acute distress noted. HEENT: Head is atraumatic, normocephalic. LUNGS: Respirations are shallow and infrequent NEUROLOGICAL: Patient is resting with eyes closed. Thrombosis Risk Factor Assmnt - DVT/VTE Prophylaxis DVT/VTE Prophylaxis: Contraindicated - See note Assessment and Plan Plan: 1 acute on chronic hypoxic respiratory failure: Secondary to pulmonary fibrosis , COPD exacerbation. 2 COPD exacerbation. 3 advance pulmonary fibrosis: Long-standing has been seen pulmonary for long time. 4 atrial fibrillation, paroxysmal. 5 CAD: No chest pain or angina 6 hyperlipidemia: Not on any medication currently. 7 arrhythmia 8 severe GERD/GI prophylaxis: Patient will be on Nexium 40 mg daily. 9 CODE STATUS: No code. Plan: [facility] care as a GIP. Patient placed on morphine drip, oral or IV lorazepam and atropine drops. Continue oxygen therapy for comfort, diet per comfort. Impression and plan of care have been directed as dictated by the signing physician. Ratna Arredondo nurse practitioner acting as scribe for signing physicia
[2017-02-27 22:40] VITALS: RESP 4
== END 2017-02-28 00:50 | disposition expired | DRG 196 ==
LOC: 5MS5E 14:41 → 5ONC 02-27 08:55
PROVIDERS: ADMIT Internal Medicine Geriatric Medicine; ATTEND Internal Medicine Geriatric Medicine
DX: J84.112 Idiopathic pulmonary fibrosis (principal); J96.21 Acute and chronic respiratory failure with hypoxia; Z99.81 Dependence on supplemental oxygen; J44.1 Chronic obstructive pulmonary disease with (acute) exacerbation; I48.0 Paroxysmal atrial fibrillation; I10 Essential (primary) hypertension; E78.5 Hyperlipidemia, unspecified; Z51.5 Encounter for palliative care; I25.10 Atherosclerotic heart disease of native coronary artery without angina pectoris; I48.2 Chronic atrial fibrillation; K21.9 Gastro-esophageal reflux disease without esophagitis; Z79.01 Long term (current) use of anticoagulants; Z79.899 Other long term (current) drug therapy; Z82.49 Family history of ischemic heart disease and other diseases of the circulatory system; Z92.3 Personal history of irradiation; Z79.52 Long term (current) use of systemic steroids; Z87.891 Personal history of nicotine dependence; Z83.2 Family history of diseases of the blood and blood-forming organs and certain disorders involving the immune mechanism; Z88.2 Allergy status to sulfonamides; Z88.1 Allergy status to other antibiotic agents; Z91.040 Latex allergy status; M19.90 Unspecified osteoarthritis, unspecified site; R91.8 Other nonspecific abnormal finding of lung field